=== PATIENT | female | born 2005 | race Caucasian/White ===

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

== ENCOUNTER 2023-02-14 20:08 | Emergency (ER) | payer OTHER, MEDICAID, SELFPAY ==
[2023-02-14 20:14] VITALS: BP 143/93; PULSE 84; RESP 16; TEMP 36.8; O2SAT 97
--- NOTE | 2023-02-14 22:05 | ED_ITS ---
HPI - General: Chief complaint: Vaginal Bleeding Stated complaint: ABD Pain Time Seen by Provider: 02/14/23 22:05 History of Present Illness: 17-year-old female comes in today with irregular menstrual cycle. Patient reports she had a cycle last week and then had not had no bleeding but started again today. Patient reports going through 1 pad over 2 hours this morning. Patient appears nontoxic. Patient endorses recent cessation of control. Patient reports right pelvic pain is normal for her when she has her menstrual cycle. Patient does report some right pelvic discomfort. Patient appears mild to no pain. Review of Systems General: Reports: 10 or more systems reviewed and unremarkable except in HPI and below : Reports: vaginal bleeding PFSH ED PFSH: Medical History Family planning History of posttraumatic stress disorder (PTSD) Leg pain Leg strain Major depressive disorder, recurrent, moderate Nicotine use disorder Psychiatric care Suicide attempt Vitamin B 12 deficiency Social History Smoking and tobacco status: current every day smoker e-cigarettes E-Cigarette Details: vaporizer device and with nicotine E-cig/vape details: Refill/week Quit status (tobacco): has tried quititng Number of times tried to quit tob acco: 2 Second hand smoke exposure: No Smoking risk assessment/counseling performed?: No Alcohol intake: former Year of sobriety/quit date alcohol: 2021 Desire information about alcohol rehabilitation?: No Counseling given: No Substance/Drug Use: former Date of last use: Marijuana - 2020 Desire information about substance/drug rehabilitation?: No Counseling given: No Physical Exam Const: COMMON NORMALS: alert HENMT: COMMON NORMALS: normocephalic HEAD & SCALP: normocephalic Neck/C-Spine: COMMON NORMALS: full ROM Resp: COMMON NORMALS: normal respiratory effort and clear to auscultation bilaterally AUSCULTATION: clear to auscultation bilaterally GI: PALPATION: No Tenderness to palpation present (GI) : COMMON NORMALS: Yes no CVA tenderness BLADDER/KIDNEY EXAM: Yes no CVA tenderness Back/Pelvis: COMMON NORMALS: no CVA tenderness Extremity: COMMON NORMALS: normal to inspection Neuro: SENSORIUM/ORIENTATION: Yes alert Skin: COMMON NORMALS: turgor normal GENERAL SKIN EXAM: turgor normal Course Vital Signs: Vital signs: Vital Signs Temperature 98.2 F 02/14/23 20:14 Pulse Rate 86 02/14/23 22:11 Respiratory Rate 14 02/14/23 22:11 Blood Pressure 133/86 02/14/23 22:11 Pulse Oximetry 98 02/14/23 22:11 Oxygen Delivery Me thod Room Air 02/14/23 22:11 MDM - OB/Uterine Contractions Medical Decision Making Patient came in today for irregular menstrual cycle. Abdomen is nontender. Oral mucosa is pink and moist. Respirations are even lungs are clear to auscultation. Abdomen soft nontender. Vital signs are normal. Differential diagnosis includes ovarian cyst, dysmenorrhea, irregular menstrual cycle. CBC was normal. Urinalysis was contaminated with skin cells along with blood, hCG was negative. No signs or symptoms of severe illness or injury was noted. Reviewed exam with patient with recommendations for treatment and follow-up. Recommended naproxen to help with bleeding and pain. Recommend follow-up with primary care for further instructions. Recommend return to the ED for worsening symptoms such as increased bleeding, high fever, or feeling of passing out. Patient reported understanding and agreed to plan. Lab Data 02/14/23 22: Laboratory Results WBC 9.04 10^3/uL (4.5-13.0) 02/14/23 22: RBC 4.23 10^6/uL (3.85-5.65) 02/14/23 22: Hgb 13.70 g/dL (12.4-14.8) 02/14/23 22: Hct 39.5 % (36-47) 02/14/23 22: MCV 93.4 fl (85-98) 02/14/23 22: MCH 32.4 pg (27-33) 02/14/23 22: MCHC 34.7 g/dL (30-55) 02/14/23 22: RDW 12.3 % (12.1-15.1) 02/14/23 22: Plt Count 291 10^3/cmm (157-399) 02/14/23 22: MPV 8.7 fL (7.4-10.4) 02/14/23 22: Neut % (Auto) 47.7 % 02/14/23 22:29 Lymph % (Auto) 36.9 % 02/14/23 22:29 [place] % (Auto) 10.1 % 02/14/23 22:29 Eos % (Auto) 4.1 % 02/14/23 22:29 Baso % (Auto) 1.0 % 02/14/23 22:29 Neut # (Auto) 4.31 10^3/uL (1.8-8.0) 02/14/23 22:29 Lymph # (Auto) 3.3 10^3/uL (1.5-6.5) 02/14/23 22: [place] # (Auto) 0.9 10^3/uL (0.2-0.9) 02/14/23 22: Eos # (Auto) 0.4 10^3/uL (0.0-0.8) 02/14/23 22: Baso # (Auto) 0.1 10^3/uL (0.0-0.1) 02/14/23 22:29 Nucleated RBC % (auto) 0 % 02/14/23 22: Nucleated RBCs # 0.0 /100WBC 02/14/23 22:29 HCG, Qual Negative (Negative) 02/14/23 22:08 Urine Color [place] (Yellow) A 02/14/23 22:08 Urine Appearance Cloudy (CLEAR) A 02/14/23 22:08 Urine pH 5 (5-7) 02/14/23 22:08 Ur Specific [place] 1.025 (1.005-1.030) 02/14/23 22:08 Urine Protein 1+ (Negative) H 02/14/23 22:08 Urine Glucose (UA) Norm (Normal) 02/14/23 22:08 Urine Ketones Negative (Negative) 02/14/23 22:08 Urine Blood 3+ (Negative) H 02/14/23 22:08 Urine Nitrate Negative (Negative) 02/14/23 22:08 Urine Bilirubin Neg (Negative) 02/14/23 22:08 Urine Urobilinogen Neg mg/dL (Negative) 02/14/23 22:08 Ur Leukocyte Esterase 2+ (Negative) H 02/14/23 22:08 Urine RBC 10-15 /hpf (0-2) H 02/14/23 22:08 Urine WBC 10-15 /hpf (0-5) H 02/14/23 22:08 Ur Squamous Epith Cells 25-40 /hpf (0-5) H 02/14/23 22:08 Amorphous Sediment 2+ /hpf 02/14/23 22:08 Urine Bacteria 1+ /hpf (NONE) H 02/14/23 22:08 Urine Mucus 1+ /hpf 02/14/23 22:08 No radiology studies performed this visit Discharge Plan Discharge Patient Disposition: Home Clinical Impression: Dysmenorrhea, unspecified Condition: Stable Prescriptions: New naproxen 500 mg tablet 500 mg PO BID PRN (Reason: pain) Qty: 20 0RF Discharge Orders: Discharge ED (Routine); Ordered 02/14/23 Ordered By: Zackery Harris Discharge Diet: Usual diet Discharge Activity: Increase activity as tolerated Patient Instructions: Dysmenorrhea (ED) Activity Restrictions/Additional Instructions: Drink plenty of water and fluids. Healthy diet and activity. Follow-up with primary care or EMULSION OPERATOR for further evaluation and treatment. Use naproxen 500 mg 1 tablet 2 times a day for menstrual cramping and pain. Return to ER for worsening symptoms such as increased bleeding greater than 1 pad an hour, fever greater than 100.4, lightheadedness or feeling of passing out. Coding Level of Care Code ED [place] Loader for Sen Sanchez
[2023-02-14 22:11] VITALS: BP 133/86; PULSE 86; RESP 14; O2SAT 98
[2023-02-14 22:23] LABS: HCG Qualitative Urine. Negative (Negative)
[2023-02-14 22:32] LABS: Add Urine Microscopic? YES; Bilirubin Urine Neg (Negative); Blood Urine 3+ (Negative); Glucose Urine UA Norm (Normal); Ketones Urine Negative (Negative); Leukocyte Esterase Urine 2+ (Negative); Nitrate Urine Negative (Negative); Protein Urine 1+ (Negative); Specific Gravity, Urine 1.025 (1.005-1.030); Urine Appearance Cloudy (CLEAR); Urine Color Orange (Yellow); Urobilinogen Urine Neg (Negative); pH Urine 5 (5-7)
[2023-02-14 22:33] LABS: Basophils # 0.1 10^3/uL (0.0-0.1); Eosinophils # 0.4 10^3/uL (0.0-0.8); Eosinophils % 4.1 %; Hematocrit 39.5 % (36-47); Lymphocytes # 3.3 10^3/uL (1.5-6.5); Lymphocytes % 36.9 %; Mean Corpuscular HGB Conc 34.7 g/dL (30-55); Mean Corpuscular Hemoglobin 32.4 pg (27-33); Mean Corpuscular Volume 93.4 fl (85-98); Mean Platelet Volume 8.7 fL (7.4-10.4); Monocytes # 0.9 10^3/uL (0.2-0.9); Monocytes % 10.1 %; Neutrophils # 4.31 10^3/uL (1.8-8.0); Neutrophils % 47.7 %; Nucleated Red Blood Cells % 0 %; Platelet Count 291 10^3/cmm (157-399); Red Blood Count 4.23 10^6/uL (3.85-5.65); Red Cell Distribution Width 12.3 % (12.1-15.1); White Blood Count 9.04 10^3/uL (4.5-13.0)
[2023-02-14 22:33] LABS: Amorphous Sediment Urine 2+ /hpf; Bacteria Urine 1+ /hpf; Mucus Urine 1+ /hpf; Squamous Epithelial Cell Urine 25-40 /hpf (0-5)
[2023-02-14 22:36] LABS: Add Urine Culture? No
== END 2023-02-14 23:00 | disposition home or self-care (01) ==
PROVIDERS: Emergency Medicine; Emergency Provider Nurse Practitioner Family
DX: N94.6 Dysmenorrhea, unspecified (principal); F17.290 Nicotine dependence, other tobacco product, uncomplicated
CPT/HCPCS: 81001; 81025; 85025; 99283

== ENCOUNTER 2023-04-20 02:38 | Inpatient (IN) | payer OTHER, MEDICAID, SELFPAY ==
[2023-04-20] VITALS (54 sets, daily range): BP systolic 81–117; BP diastolic 42–90; PULSE 57–117; RESP 12–17; TEMP 36.7–36.8; O2SAT 94–99; BMI 19.8; BMI 19.1
--- NOTE | 2023-04-20 02:50 | ECG_ITS ---
[facility] Test Date: 2023-04-20 Pat Name: Johanne Wolfe Department: Room: ICU06 Gender: Female Sightseeing Guide: : 2005 Requested By: Danis Ordaz Order Number: [id number] [place] MD: Jeremiah Bob M.D. Measurements Intervals [place] Rate: 82 P: 56 VA: 153 QRS: 14 QRSD: 79 T: 49 QT: 366 QTc: 428 Interpretive Statements SINUS RHYTHM POSSIBLE LEFT ATRIAL ENLARGEMENT [-0.1mV P-WAVE IN V1/V2] LOW QRS VOLTAGE IN PRECORDIAL LEADS [QRS DEFLECTION < 1.0 mV IN CHEST LEADS] POSSIBLE RIGHT VENTRICULAR CONDUCTION DELAY [RSR (QR) IN V1/V2] NONSPECIFIC T-WAVE ABNORMALITY Compared to ECG 02/21/2022 04:52:46 Low QRS voltage now present Sinus bradycardia no longer present Sinus arrhythmia no longer present T-wave abnormality still present Electronically Signed On 04-20-2023 8:17:42 DEAN by Jeremiah Bob M.D. [id number]
[2023-04-20 02:59] LABS: Basophils # 0.1 10^3/uL (0.0-0.1); Basophils % 1.3 %; Eosinophils # 0.9 10^3/uL (0.0-0.8); Eosinophils % 10.4 %; Hematocrit 39.5 % (36-47); Lymphocytes # 3.2 10^3/uL (1.5-6.5); Lymphocytes % 37.8 %; Mean Corpuscular HGB Conc 34.2 g/dL (30-55); Mean Corpuscular Hemoglobin 32.3 pg (27-33); Mean Corpuscular Volume 94.5 fl (85-98); Mean Platelet Volume 8.9 fL (7.4-10.4); Monocytes # 0.7 10^3/uL (0.2-0.9); Monocytes % 8.7 %; Neutrophils # 3.54 10^3/uL (1.8-8.0); Neutrophils % 41.7 %; Nucleated Red Blood Cells % 0 %; Platelet Count 292 10^3/cmm (157-399); Red Blood Count 4.18 10^6/uL (3.85-5.65); Red Cell Distribution Width 12.1 % (12.1-15.1); White Blood Count 8.49 10^3/uL (4.5-13.0)
[2023-04-20] MEDS: sodium chloride 0.9% 1,000 ML 999 ML IV (03:01)
[2023-04-20 03:10] LABS: HCG, Serum Qual Negative (Negative)
[2023-04-20 03:19] LABS: Acetaminophen < 5.0 ug/mL (10-30); Alanine Aminotransferase 20 U/L (0-33); Albumin Level 4.8 g/dL (3.5-5.2); Alcohol Level 48 mg/dL (0-10); Alkaline Phosphatase 98 U/L (35-105); Anion Gap 14.6 (5-19); Aspartate Amino Transferase 18 U/L (0-32); Blood Urea Nitrogen 5 mg/dL (6-20); Calcium 9.1 mg/dL (8.5-10.5); Carbon Dioxide 25 mmol/L (22-29); Chloride 100 mmol/L (98-107); Glomerular Filtration Rate 107.8 mL/min (90-130); Glucose 90 mg/dL (65-115); Osmolality Calculated 279 mOsm/kg (285-295); Potassium 3.6 mmol/L (3.5-5.1); Salicylate < 0.3 mg/dL (3-10); Sodium 136 mmol/L (136-145); Total Bilirubin 0.2 mg/dL (0.15-1.2); Total Protein 7.8 g/dL (6.6-8.7)
--- NOTE | 2023-04-20 03:49 | ED_ITS ---
HPI - Overdose 2 General: Chief Complaint: Overdose Stated Complaint: OD Time Seen by Provider: 04/20/23 02:41 History of Present Illness: 17-year-old female who took 12-14 5 mg A mbien prior to arrival. This happened around an hour prior to arrival. The patient arrives lethargic. She is oriented to person. She does not really answer questions otherwise appropriately. She is awake. She originally denied that she was suicidal, but it is known that she had been involved in a emotional conversation with her boyfriend prior. Review of Systems 2 General: Reports: ROS unobtainable due to mental status PFS ED 2 PFSH: Medical History Suicide attempt Major depressive disorder, recurrent, moderate Nicotine use disorder History of posttraumatic stress disorder (PTSD) Psychiatric care Vitamin B 12 deficiency Family planning Leg pain Leg strain Social History Smoking and tobacco/nicotine status: current every day tobacco/nicotine user e- cigarettes E-Cigarette Details: vaporizer device and with nicotine E-cig/vape details: Refill/week Quit status (tobacco/nicotine): has tried quititng Number of times tried to quit tobacco: 2 Second hand smoke exposure: No Alcohol intake: former Year of sobriety/quit date alcohol: 2021 Substance/Drug Use: former Date of last use: Marijuana - 2020 Physical Exam 2 Const: COMMON NORMALS: no acute distress GENERAL APPEARANCE: cooperative and ill appearing; not frail appearing HENMT: COMMON NORMALS: normocephalic, atraumatic and Normal external nose present HEAD & SCALP: normocephalic and atraumatic FACE & SINUS: normal facial exam and face symmetric NOSE: Normal external nose present Eye: COMMON NORMALS: Equal, round and reactive pupils present and EOMs intact bilaterally PUPIL: Yes Equal, round and reactive pupils present Neck/C-Spine: GENERAL: Yes trachea midline Chest: CHEST: Yes Symmetrical chest wall rise Resp: COMMON NORMALS: normal respiratory effort, No retractions, No use of accessory muscles and clear to auscultation bilaterally AUSCULTATION: clear to auscultation bilaterally Cardio: COMMON NORMALS: regular rate and regular rhythm RATE: regular rate RHYTHM: regular rhythm GI: COMMON NORMALS: Normal to inspection, nondistended, normoactive bowel sounds present Extremity: COMMON NORMALS: no pedal edema Neuro: ELOISA COMA SCALE: document GCS findings Eloisa coma scale eye opening: To sound [place] coma scale verbal response: Confused Eloisa coma scale motor response: Localising [place] coma scale total score: 12 SPEECH: a bnormal speech Details: slurred SENSORY EXAM: Yes extremities (intact) Skin: COMMON NORMALS: no rashes or lesions noted GENERAL SKIN EXAM: no rashes or lesions noted Course 2 Vital Signs: Vital signs: Vital Signs Temperature 98.1 F 04/20/23 02:41 Pulse Rate 117 H 04/20/23 02:41 Respiratory Rate 17 04/20/23 02:41 Blood Pressure 117/82 04/20/23 02:41 Pulse Oximetry 97 04/20/23 02:41 Oxygen Delivery Me thod Room Air 04/20/23 02:41 MDM - Overdose Medical Decision Making 17-year-old female who intentionally overdosed. She is placed under 96-hour hold. She is quite lethargic, but not obtunded. She arouses to voice. She will require ICU observation until medically stable, when she can be evaluated by psychiatry. Spoke with hospitalist. He agrees to admit. Vitals are stable at this point. Lab Data 04/20/23 02:21 12 02:21 Laboratory Results WBC 8.49 10^3/uL (4.5-13.0) 04/20/23 02:21 RBC 4.18 10^6/uL (3.85-5.65) 04/20/23 02:21 Hgb 13.50 g/dL (12.4-14.8) 04/20/23 02:21 Hct 39.5 % (36-47) 04/20/23 02:21 MCV 94.5 fl (85-98) 04/20/23 02:21 MCH 32.3 pg (27-33) 04/20/23 02:21 MCHC 34.2 g/dL (30-55) 04/20/23 02:21 RDW 12.1 % (12.1-15.1) 04/20/23 02:21 Plt Count 292 10^3/cmm (157-399) 04/20/23 02:21 MPV 8.9 fL (7.4-10.4) 04/20/23 02:21 Neut % (Auto) 41.7 % 04/20/23 02:21 Lymph % (Auto) 37.8 % 04/20/23 02:21 [place]mer[place] % (Auto) 8.7 % 04/20/23 02:21 Eos % (Auto) 10.4 % 04/20/23 02:21 Baso % (Auto) 1.3 % 04/20/23 02:21 Neut # (Auto) 3.54 10^3/uL (1.8-8.0) 04/20/23 02:21 Lymph # (Auto) 3.2 10^3/uL (1.5-6.5) 04/20/23 02:21 Esmer[place]da # (Auto) 0.7 10^3/uL (0.2-0.9) 04/20/23 02:21 Eos # (Auto) 0.9 10^3/uL (0.0-0.8) H 04/20/23 02:21 Baso # (Auto) 0.1 10^3/uL (0.0-0.1) 04/20/23 02:21 Nucleated RBC % (auto) 0 % 04/20/23 02:21 Nucleated RBCs # 0.0 /100WBC 04/20/23 02:21 Sodium 136 mmol/L (136-145) 04/20/23 02:21 Potassium 3.6 mmol/L (3.5-5.1) 04/20/23 02:21 Chloride 100 mmol/L (98-107) 04/20/23 02:21 Carbon Dioxide 25 mmol/L (22-29) 04/20/23 02:21 Anion Gap 14.6 (5-19) 04/20/23 02:21 BUN 5 mg/dL (6-20) L 04/20/23 02:21 Creatinine 0.7 mg/dL (0.5-0.9) 04/20/23 02:21 GFR Calculation 107.8 mL/min (90-130) 04/20/23 02:21 Glucose 90 mg/dL (65-115) 04/20/23 02:21 Calculated Osmolality 279 mOsm/kg (285-295) L 04/20/23 02:21 Calcium 9.1 mg/dL (8.5-10.5) 04/20/23 02:21 Total Bilirubin 0.2 mg/dL (0.15-1.2) 04/20/23 02:21 AST 18 U/L (0-32) 04/20/23 02:21 ALT 20 U/L (0-33) 04/20/23 02:21 Alkaline Phosphatase 98 U/L (35-105) 04/20/23 02:21 Total Protein 7.8 g/dL (6.6-8.7) 04/20/23 02:21 Albumin 4.8 g/dL (3.5-5.2) 04/20/23 02:21 Globulin 3.0 g/dL (1.3-4.6) 04/20/23 02:21 HCG, Qual Negative (Negative) 04/20/23 02:21 Salicylates < 0.3 mg/dL (3-10) L 04/20/23 02:21 Acetaminophen < 5.0 ug/mL (10-30) L 04/20/23 02:21 Ethyl Alcohol 48 mg/dL (0-10) H 04/20/23 02:21 No radiology studies performed this visit Discharge Plan Discharge Patient Disposition: Admitted As Inpatient Clinical Impression: Drug overdose Condition: Serious Prescriptions: No Action naproxen 500 mg tablet 500 mg PO BID PRN (Reason: pain) Qty: 20 0RF Coding Level of Care Code ED Putty Glazer for Sen Sanchez
--- NOTE | 2023-04-20 04:07 | PC.NURSE ---
poison control poison control states 1.5- 2 hour peak. may cause dizziness, drowsiness, and hallucinations. no cardiac involvement. no reversal. spoke to justin.
--- NOTE | 2023-04-20 04:40 | PC.NURSE ---
Copy of 96 Hour Hold rights given by this RN. Pt drowsy and not responding appropriately.
[2023-04-20 05:20] LABS: Add Urine Microscopic? NO; Charge for UA Resulting for Rev
[2023-04-20 05:29] LABS: Bilirubin Urine Neg (Negative); Blood Urine Neg (Negative); Glucose Urine UA Norm (Normal); Ketones Urine Negative (Negative); Leukocyte Esterase Urine Negative (Negative); Nitrate Urine Negative (Negative); Protein Urine Neg (Negative); Urine Appearance Clear (CLEAR); Urine Color Light yellow (Yellow); Urobilinogen Urine Neg (Negative); pH Urine 6 (5-7)
[2023-04-20 05:38] LABS: Amphetamines Screen Urine Negative (Negative); Barbiturates Screen Urine Negative (Negative); Benzodiazepines Screen Urine Negative (Negative); Cocaine Screen Urine Negative (Negative); Opiate Screen Urine Negative (Negative); PCP Screen Urine Negative (Negative); THC Screen Urine Positive (Negative)
--- NOTE | 2023-04-20 06:11 | PM.HP ---
Providers/Chief Complaint Admitting Physician: Duarte Delcid MD Chief Complaint: OD History of Present Illness Johanne Wolfe is a 17 year old female who was brought in by the EMS because patient overdosed on Ambien try to hurt herself, she took 14 tablets of 5 mg Ambien, she is very drowsy however able to protect airway, CBC unremarkable, BMP unremarkable, she is saturating well on room air, hypotensive required IV fluid hydration, at the time of my evaluation patient opens her eyes but goes back to sleep right away, she is noddingYes to all my questions. I called her mother, mother is stating that she has no control over her because she is 88 years old but she was admitted to neuropsychiatric facility in [facility] for suicidal attempt in the past and she thinks she needs to be institutionalized. Her mother had no clue that she was in the hospital because she lives with her boyfriend now. Review of Systems General: Reports: ROS unobtainable due to mental status Medications/Allergies Home Medications Medication Instructions Recorded Confirmed Last Taken Type naproxen 500 mg tablet 500 mg PO BID PRN pain #20 tabs 02/14/23 Unknown Rx Allergies Allergy/AdvReac Type Severity Reaction Status Date / Time No Known Allergies Allergy Verified 02/14/23 20:19 PFSH Acute PFSH: Medical History Suicide attempt Major depressive disorder, recurrent, moderate Nicotine use disorder History of posttraumatic stress disorder (PTSD) Psychiatric care Vitamin B 12 deficiency Family planning Leg pain Leg strain Social History Smoking and tobacco/nicotine status: current every day tobacco/nicotine user e-cigarettes E-Cigarette Details: vaporizer device and with nicotine E-cig/vape details: Refill/week Quit status (tobacco/nicotine): has tried quititng Number of times tried to quit tobacco: 2 Second hand smoke exposure: No Alcohol intake: former Year of sobriety/quit date alcohol: 2021 Substance/Drug Use: former Date of last use: Marijuana - 2020 Vitals/I&O/Wt Last Vital Signs Temp 98.1 F 04/20/23 02:41 Pulse 77 04/20/23 06:06 Resp 15 04/20/23 05:22 BP 104/69 04/20/23 05:22 Pulse Ox 95 04/20/23 06:06 O2 Del Method Room Air 04/20/23 05:22 Weight last 48 hrs Weight 44.452 kg Physical Exam Narrative: Pleasant and cooperative GCS 15 Able to protect airway Drowsy Saturating well on room air Hypertensive Euvolemic Abdomen soft Conjunctival hyperemia noted S1, S2 No audible stridor or wheezing Data 04/20/23 02:21 04/20/23 02:21 A&P Assessment and plan (1) Drug overdose: (2) Borderline personality disorder: (3) Panic attacks: (4) Vitamin B 12 deficiency: (5) Suicidal behavior: Plan Suicide attempt Patient took 40 tablets of Ambien 5 mg CBC, BMP unremarkable Able to protect airway She will be monitored in ICU once she is more awake and alert she will be sent to neuropsychiatric unit No signs of QTc prolongation Hemodynamically stable, I will keep her on IV fluid hydration She has not been in contact with her parents, Considering HIPAA violation I have not disclosed any information to the mother but told her that her daughter is in the hospital she is planning to be here within 2 hours She lives in [place] Full code DVT prophylaxis on board Will allow her to eat when she is more awake and alert Polysubstance abuse with marijuana, alcohol level 48 Start thiamine, folic acid Borderline personality, history of suicide attempt in the past, she was at [facility], mother is concerned and stating that she should be institutionalized Attestations Medical Necessity Statement*: More than 2 midnights anticipated Coding Level of Care Code Acute Code for Chg Fwd Diagnoses Drug overdose T50.901A Borderline personality disorder F60.3 Panic attacks F41.0 Vitamin B 12 deficiency E53.8 Suicidal behavior R45.89
--- NOTE | 2023-04-20 07:39 | PC.PHAR ---
pt unable to verify medications-medications entered are from the med bottles the pt brought in with her-notes are made in the pharmacy comments with last filled dates
--- NOTE | 2023-04-20 08:36 | P.EN_ITS ---
Event Note Event Note: Patient interviewed, seen. History and physical reviewed. She was admitted at 610 this morning. She has history of ingestion of Ambien. She believes it was around 11 PM. According to documentation from the ER it could have been as late as 1:40 AM. She awakens easily for me. She states she is sleepy but has no difficulty with her speech. I have asked that nursing called poison control. I believe the half-life is 3-1/2 hours or Ambien. She denies ingesting any other substances. Considering this, if she continues to recover I think that she could safely be transferred to [facility] this afternoon. Discussed case briefly with psychiatry.
[2023-04-20 08:53] LABS: Thyroid Stimulating Hormone 0.64 uIU/mL (0.27-4.20)
[2023-04-20] MEDS: folic acid 1 mg Tablet PO (10:18)
[2023-04-20] MEDS: enoxaparin 40 mg/0.4 mL Syringe SUBCUT (10:19)
[2023-04-20] MEDS: thiamine 100 mg Tablet PO (10:19)
[2023-04-20] MEDS: multivitamin therapeutic Tablet 1 TAB PO (10:19)
[2023-04-20] MEDS: sodium chloride 0.9% 1,000 ML 75 ML IV (10:21)
[2023-04-20] MEDS: LORazepam 2 mg/mL INJ 1 mL IVP (10:36)
--- NOTE | 2023-04-20 13:33 | PC.NURSE ---
Report called to Gail in [facility]. All questions answered. Patient safely transported to [facility] with security.
--- NOTE | 2023-04-20 14:14 | PC.NURSE ---
PT BROUGHT INTO THE EMERGENCY DEPARTMENT AFTER BOYFRIEND FOUND HER UNCONSCIOUS AFTER TAKING 12-14 AMBIEN. UPON ADMIT TO [facility] PT STATED I OVERDOSED LAST NIGHT BUT I DO NOT NEED TO BE HERE. WHEN ASKED WHAT TRIGGERED HER TAKING AN OVERDOSE PT STATED I DON'T KNOW I NEVER KNOW.
[2023-04-20] MEDS: hyDROXYzine 25 mg Capsule 50 MG PO (16:20)
--- NOTE | 2023-04-20 16:20 | PC.NURSE ---
PRN VISTARIL 50 MG GIVEN PO PER PT C/O ANXIETY, UPSET SHE HASN'T BEEN RESTARTED ON HER HOME MEDICATIONS YET, ASSURED BY STAFF PHYSICIAN WOULD BE NOTIFIED ABOUT RESTARTING HOME MEDS.
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
[2023-04-21 06:00] VITALS: RESP 16
[2023-04-21 08:00] VITALS: PULSE 76; RESP 16; O2SAT 96
[2023-04-21] MEDS: hyDROXYzine 25 mg Capsule 50 MG PO (08:28)
[2023-04-21] MEDS: multivitamin therapeutic Tablet 1 TAB PO (08:57)
[2023-04-21] MEDS: lamoTRIgine 100 mg Tablet PO (08:57)
[2023-04-21] MEDS: venlafaxine ER (24HR) 150 mg Capsule PO (08:57)
[2023-04-21] MEDS: thiamine 100 mg Tablet PO (08:57)
--- NOTE | 2023-04-21 09:12 | PC.NURSE ---
Patient sobbing uncontrollably this morning. She states she thinks this is partially due to not having her lamictal or effexor this morning. She also says she woke up this morning and had forgotten that she was at the hospital and this scared her. Patient says she is not feeling suicidal this morning and isn't sure why she tried to overdose. She states, this happens every time. I black out and never remember what happened. I was doing so good. I don't know what happened. She then began talking about how anxious she was due to not having her boyfriend or her boyfriend's mother's number. She became hysterical when she realized she did not have her phone with her when she arrived at the hospital and that their phone numbers weren't listed in her contacts. Support was voiced and vistaril 50mg po, lamictal 100mg po, and venlafaxine 150mg po were administered.
[2023-04-21 14:00] VITALS: BP 118/75; PULSE 56; RESP 15; TEMP 36.9; O2SAT 98
--- NOTE | 2023-04-21 14:50 | PC.NURSE ---
Patient approached nurses' station and began yelling that she didn't need to be here and that nobody cared and nobody would talk to her. This RN offered to talk to her in her room about what was on her mind, but the patient said she did not want to. She then pointed at the doctor and said, he even knows I don't need to be here. Patient requested her therapist's phone number that she currently sees at [facility] in [place], [place] named Germania. This information was provided to her and patient immediately went to the patient phone to place a call.
[2023-04-21] MEDS: OLANZapine 5 mg ODT PO (16:35)
--- NOTE | 2023-04-21 17:30 | P.NPUPN_ITS ---
Subjective NPU 2 Subjective: Patient presented today reporting that she really does not understand why she has to be here. We discussed it being very clear with her intentional overdose in the context of her borderline personality disorder and significant distress being concerning. She continues to demonstrate limited insight into the situation and seems to want to say what ever was expedience to move the dial towards discharge. She ultimately got so worked up that a as needed medication was requested and given which allowed her to eventually regain her composure. Mental Status Exam 2 MSE Comments: This is a short, well nourished, well developed white female in hospital scrubs with limited grooming and eye contact. No abnormal movements except for psychomotor agitation. Currently resistant to exam in mild to moderate distress. Speech was increased rate and volume. Mood described as I do not really need to be here, affect is subdued. Thought process, organized. Thought content: patient denies suicidal or homicidal ideation, no delusions reported or noted and denies any auditory or visual hallucinations. Attention and concentration are limited and memory appeared unreliable but none were formally tested. She is alert and oriented x 3. Insight and judgment are limited versus impaired. Impulse control is limited versus impaired. Vitals/I&O/Wt Last Vital Signs Temp 98.4 F 04/21/23 14:00 Pulse 56 L 04/21/23 14:00 Resp 15 04/21/23 14:00 BP 118/75 04/21/23 14:00 Pulse Ox 98 04/21/23 14:00 O2 Del Method Room Air 04/20/23 20:19 Weight last 48 hrs Weight 42.836 kg Weight 42.836 kg Weight 44.452 kg Data NPU 04/20/23 02:21 04/20/23 02:21 A&P Assessment and plan (1) Suicidal ideation: (2) Anxiety: (3) Major depressive disorder: (4) History of posttraumatic stress disorder (PTSD): (5) Drug overdose: (6) Borderline personality disorder: (7) Suicidal behavior: Plan This is an 17 year old female with a history of anxiety, depression as well as trauma and PTSD who presents status post suicide attempt which she denies, which is consistent with past admissions but she denies lethality expressing desire for discharge.. 1. Continue current medication. 2. Continue every 15 minute checks for safety. 3. Encourage individual, group and milieu therapies. 4. Encourage sober living treatment after discharge at the highest level of care to which she is willing to commit. 5. Patient transferred from the ICU for psychiatric treatment. Involuntary Hold Information 2 96 Hour Hold: 96 Hour Involuntary Admission: Yes 96 Hour Hold Ending Date: 02/26/22 96 Hour Hold Ending Time: 00:01 Attestations NPU 2 Medical Necessity Statement*: Inpatient hospitalization is medically necessary and the clinically appropriate intervention at this time. We will monitor medication to make changes as indicated. Likely length of stay 2-4 days. Coding Level of Care Code Acute Code for Chg Fwd Diagnoses Suicidal ideation R45.851 Anxiety F41.9 Major depressive disorder F32.9 History of posttraumatic stress disorder (PTSD) Z86.59 Drug overdose T50.901A Borderline personality disorder F60.3 Suicidal behavior R45.89
--- NOTE | 2023-04-21 17:45 | PC.NURSE ---
Approximately 1630 patient began screaming that she wanted to go home and sobbing hysterically. She claimed that nobody cared about her and that everyone had abandoned her. This RN sat with the patient and talked with her about why she felt this way. She divulged that she had made a stupid decision because of a trigger that was at home that would no longer be there anymore. When this nurse asked what the trigger was she said she didn't want to talk about it, but later admitted that it was that she had cheated on her boyfriend and felt badly about it. She said she then remembers saying, wait and see what happens in 20 minutes to her boyfriend and his mother after she took medication. Patient says the boyfriend's mother attempted to get her to vomit the medications back up, but ended up calling the police. She also states her mother, who has visited during visiting hours the last 2 days, does not really care about her and is just pretending. 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 Patient calmed significantly and zyprexa 5mg odt administered. This RN requested the patient notify staff if she began feeling increasing anxiety again.
[2023-04-21 20:43] VITALS: RESP 15
[2023-04-22 06:00] VITALS: BP 93/61; PULSE 76; RESP 16; O2SAT 96
[2023-04-22 08:00] VITALS: PULSE 79; RESP 16; O2SAT 96
[2023-04-22] MEDS: lamoTRIgine 100 mg Tablet PO (08:43)
[2023-04-22] MEDS: thiamine 100 mg Tablet PO (08:43)
[2023-04-22] MEDS: multivitamin therapeutic Tablet 1 TAB PO (08:43)
[2023-04-22] MEDS: venlafaxine ER (24HR) 150 mg Capsule PO (08:43)
[2023-04-22] MEDS: hyDROXYzine 25 mg Capsule 50 MG PO (11:30)
[2023-04-22 14:00] VITALS: BP 101/64; PULSE 58; RESP 14; TEMP 36.9; O2SAT 99
--- NOTE | 2023-04-22 16:25 | P.NPUPN_ITS ---
Subjective NPU 2 Subjective: Patient presented today reporting that she is doing all right. She discussed the need for her to continue to make improvements and identified her self sabotaging approaches in life that continue to create these challenging moments. She took ownership of the choices that her behaviors and we discussed her working with the social work team for appropriate follow-up. We discussed discharge in the next 48 hours. Mental Status Exam 2 MSE Comments: This is a short, well nourished, well developed white female in hospital scrubs with improved grooming and eye contact. No abnormal movements except for mild psychomotor retardation. Operative with exam in mild distress. Speech was more normal rate and volume. Mood described as I know I need to make some changes, affect is subdued. Thought process, organized. Thought content: patient denies suicidal or homicidal ideation, no delusions reported or noted and denies any auditory or visual hallucinations. Attention and concentration are limited and memory appeared unreliable but none were formally tested. She is alert and oriented x 3. Insight and judgment are limited, but improving. Impulse control is limited . Vitals/I&O/Wt Last Vital Signs Temp 98.4 F 04/21/23 14:00 Pulse 79 04/22/23 08:00 Resp 16 04/22/23 08:00 BP 93/61 04/22/23 06:00 Pulse Ox 96 04/22/23 08:00 O2 Del Method Room Air 04/22/23 08:00 Data NPU 04/20/23 02:21 04/20/23 02:21 A&P Assessment and plan (1) Suicidal ideation: (2) Anxiety: (3) Major depressive disorder: (4) History of posttraumatic stress disorder (PTSD): (5) Drug overdose: (6) Borderline personality disorder: (7) Suicidal behavior: Plan This is an 17 year old female with a history of anxiety, depression as well as trauma and PTSD who presents status post suicide attempt which she denies, which is consistent with past admissions but she denies lethality expressing desire for discharge.. 1. Continue current medication. 2. Continue every 15 minute checks for safety. 3. Encourage individual, group and milieu therapies. 4. Encourage sober living treatment after discharge at the highest level of care to which she is willing to commit. 5. Evaluated on 96-hour hold likely discharge in the morning. Involuntary Hold Information 2 96 Hour Hold: 96 Hour Involuntary Admission: Yes 96 Hour Hold Ending Date: 02/26/22 96 Hour Hold Ending Time: 00:01 Attestations NPU 2 Medical Necessity Statement*: Inpatient hospitalization is medically necessary and the clinically appropriate intervention at this time. We will monitor medication to make changes as indicated. Likely length of stay 1-3 days. Coding Level of Care Code Acute Code for Chg Fwd Diagnoses Suicidal ideation R45.851 Anxiety F41.9 Major depressive disorder F32.9 History of posttraumatic stress disorder (PTSD) Z86.59 Drug overdose T50.901A Borderline personality disorder F60.3 Suicidal behavior R45.89
[2023-04-22] MEDS: OLANZapine 5 mg ODT PO (20:21)
[2023-04-22] MEDS: trazodone 50 mg Tablet PO (20:21)
[2023-04-22 20:34] VITALS: BP 101/69; PULSE 66; RESP 14; TEMP 36.9; O2SAT 96
--- NOTE | 2023-04-22 20:43 | PC.NURSE ---
PT IN ROOM, TEARFUL ON ASSESSMENT. REPORTS MY ANXIETY IS SUPER BAD EVEN AFTER I DID MY BREATHING EXERCISES AND JOURNALING. PT WAS GIVEN ZYDIS 5 MG ORDERED FOR SEVERE AGITATION AND ANXIETY. PT CONTINUES TO CALL HER BOYFRIEND AND CRY THEN COME TO THE NURSES STATION AND CRY SAYING THAT NO ONE IS TALKING TO ME AND I WANT SOMEONE TO TALK TO. PT WAS INFORMED SHE HAS BEEN ON THE PHONE AND STAFF DOES NOT TALK TO PTS WHILE THEY ARE ON THE PHONE WITH OTHER PEOPLE. PT WAS ALSO GIVEN TRAZODONE 50 MG ORDERED DUE TO INSOMNIA AND PT REQUEST. PT DENIES SI/HI AND AVH AT THIS TIME. REPORTS ANXIETY 6/10 AND DEPRESSION 0/10. DENIES PAIN. ALL QUESTIONS ANSWERED AND SUPPORT WAS VOICED.
--- NOTE | 2023-04-23 03:55 | PC.NURSE ---
PT HAS SLEPT APPROXIMATELY 7 HOURS SINCE ADMINISTRATION OF TRAZODONE 50 MG AND ZYDIS 5 MG. PRN MEDICATIONS DEEMED EFFECTIVE. PT CONTINUES TO REST WITH NO DISTRESS NOTED.
[2023-04-23 06:00] VITALS: RESP 15
[2023-04-23 08:00] VITALS: PULSE 80; RESP 18; O2SAT 96
[2023-04-23] MEDS: thiamine 100 mg Tablet PO (08:52)
[2023-04-23] MEDS: multivitamin therapeutic Tablet 1 TAB PO (08:52)
[2023-04-23] MEDS: venlafaxine ER (24HR) 150 mg Capsule PO (08:52)
[2023-04-23] MEDS: lamoTRIgine 100 mg Tablet PO (08:52)
[2023-04-23] MEDS: blistex lip oint 7 gm Tube 1 APPLIC TOPICAL (10:10)
--- NOTE | 2023-04-23 11:25 | P.NPUDS_ITS ---
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 tablet 5 mg PO TID PRN (Reason: anxiety) Qty: 30 0RF Discharge Orders: Discharge Order (Routine); Ordered 04/23/23 Ordered By: Acosta Bonilla Referrals: [facility] [Other] - 04/29/23 2:00 pm (Appointment with Germania Robledo ) [facility] [Outside] - 04/28/23 9:00 am (One time hospital follow up with Carli Manzano 04/28/23 @ 9:00 am ) Fan Peter DO [Staff Physician] - 05/05/23 2:45 pm (Follow up) Discharge Diet: Regular Discharge Activity: Resume usual activity Patient Instructions: Trazodone (By mouth) (Desyrel, Desyrel Dividose, Oleptro, Trazamine), Borderline Personality Disorder (DC), Suicide Prevention (DC), Opioid Safety Discharge Attestations NPU Time Spent in Discharge Care*: less than 30 min Specific Discharge Activities: Specific discharge activities: educating patient, discussing with case technician/social workers/dc planners, documenting/other paperwork and evaluating patient/reviewing data Coding Level of Care Code Acute Code for Chg Fwd Diagnoses Suicidal ideation R45.851 Anxiety F41.9 Major depressive disorder F32.9 History of posttraumatic stress disorder (PTSD) Z86.59 Drug overdose T50.901A Borderline personality disorder F60.3 Suicidal behavior R45.89
[2023-04-23 11:38] VITALS: PULSE 80; RESP 18; O2SAT 96
[2023-04-23] MEDS: hyDROXYzine 25 mg Capsule 50 MG PO (12:19)
== END 2023-04-23 14:11 | disposition home or self-care (01) | DRG 881 ==
LOC: ER 04:03 → ICU 07:23 → NP 13:21
PROVIDERS: Admitting Provider Internal Medicine; Emergency Provider Emergency Medicine; Visit Provider Internal Medicine
DX: F32.9 Major depressive disorder, single episode, unspecified (principal); F17.290 Nicotine dependence, other tobacco product, uncomplicated; F43.10 Post-traumatic stress disorder, unspecified; E53.8 Deficiency of other specified B group vitamins; F60.3 Borderline personality disorder; F41.9 Anxiety disorder, unspecified; F12.10 Cannabis abuse, uncomplicated; Z81.8 Family history of other mental and behavioral disorders; Z81.3 Family history of other psychoactive substance abuse and dependence; Z62.810 Personal history of physical and sexual abuse in childhood; Z62.811 Personal history of psychological abuse in childhood; T42.6X2A Poisoning by other antiepileptic and sedative-hypnotic drugs, intentional self-harm, initial encounter; Y92.9 Unspecified place or not applicable; Z91.51 Personal history of suicidal behavior
CPT/HCPCS: 80053; 80306; 80307; 81003; 84443; 84703; 85025; 93005; 96360; 96372; 97150; 97165; 99285; J1650; J2060; J7030

== ENCOUNTER → 2023-05-14 15:44 | Outpatient (BNVA) | payer OTHER, MEDICAID, SELFPAY | PROVIDERS: Visit Provider Nurse Practitioner Women's Health | DX: R10.2 Pelvic and perineal pain (principal); N64.4 Mastodynia | CPT/HCPCS: 81025; 84702; 87491; 87591 ==

== ENCOUNTER 2023-05-16 20:33 | Emergency (ER) | payer OTHER, MEDICAID, SELFPAY ==
[2023-05-16 20:38] VITALS: BP 123/83; PULSE 95; RESP 16; TEMP 36.8; O2SAT 97
--- NOTE | 2023-05-16 21:25 | ED.C_ITS ---
HPI - Psych General: Chief Complaint: Psychiatric Symptoms Stated Complaint: MHE Time Seen by Provider: 05/16/23 21:00 History of Present Illness: Presents to the ER with increased pression anxiety. Patient says she has been out of her Lamictal for the last 3 days. Patient has been unable to see a psych physician to get her medicines filled. She was released from [facility] on about 12 . Patient states she was on 100 mg of Lamictal at that time and just run out 3 days ago. She was referred to 1 psychiatrist but he decided he did not want to see her. Patient is emotional at the moment but adamantly denies being suicidal or homicidal. Patient was seen at the [facility] on 1228 where she had a quantitative hCG drawn and it was 1. So patient is currently not . Patient is wanting back on her medicine. Review of Systems General: Reports: 10 or more systems reviewed and unremarkable except in HPI and below PFSH ED PFSH: Medical History Suicide attempt Major depressive disorder, recurrent, moderate Nicotine use disorder History of posttraumatic stress disorder (PTSD) Psychiatric care Vitamin B 12 deficiency Family planning Leg pain Leg strain Social History Smoking and tobacco/nicotine status: current every day tobacco/nicotine user e- cigarettes E-Cigarette Details: vaporizer device and with nicotine E-cig/vape details: Refill/week Quit status (tobacco/nicotine): has tried quititng Number of times tried to quit tobacco: 2 Second hand smoke exposure: No Alcohol intake: former Year of sobriety/quit date alcohol: 2021 Substance/Drug Use: former Date of last use: Marijuana - 2020 Physical Exam Const: COMMON NORMALS: no acute distress, average body habitus, patient oriented x3, no limitations, healthy appearing, alert and well nourished HENMT: COMMON NORMALS: normocephalic, atraumatic, hearing grossly normal bilaterally, external ears normal, Normal external nose present, moist oral mucous membranes and oropharynx normal HEAD & SCALP: normocephalic and atraumatic NOSE: Normal external nose present EXTERNAL EAR: Yes external ears normal Neck/C-Spine: COMMON NORMALS: no JVD Chest: COMMONS NORMALS: normal inspection of the chest and normal palpation of entire chest wall Resp: COMMON NORMALS: normal respiratory effort, No retractions, No use of accessory muscles and clear to auscultation bilaterally AUSCULTATION: clear to auscultation bilaterally Cardio: COMMON NORMALS: no JVD, regular rate, regular rhythm, S1 normal heart sound present, S2 normal heart sound present, No gallops present (Cardio), No clicks present (Cardio), No murmurs present (Cardio) and No rub (Cardio) RATE: regular rate RHYTHM: regular rhythm HEART SOUNDS: S1 normal heart sound present and S2 normal heart sound present GI: COMMON NORMALS: Normal to inspection, nondistended, normoactive bowel sounds present, Soft to palpation, non-tender, No hepatosplenomegaly present and no masses PALPATION: Yes Soft to palpation and Yes No hepatosplenomegaly present Neuro: COMMON NORMALS: patient oriented x3 SENSORIUM/ORIENTATION: Yes alert Course Vital Signs: Vital signs: Vital Signs Temperature 98.2 F 05/16/23 20:38 Pulse Rate 95 05/16/23 20:38 Respiratory Rate 16 05/16/23 20:38 Blood Pressure 123/83 05/16/23 20:38 Pulse Oximetry 97 05/16/23 20:38 [facility] - Psych Medical Decision Making Patient's been off her Lamictal for 3 days and is getting emotional and anxious. Patient not suicidal or homicidal and is not . We will represcribe her Lamictal 100 mg a day #30 and trial of BuSpar 5 mg 3 times daily as needed and have her follow-up with her PCP and/or psychiatrist in the interim. Differential Diagnosis Likely depression and acute anxiety; Unlikely acute psychosis, chronic schizophrenia, suicidal ideation, bipolar disorder or drug-induced psychotic disorder Medical Records I reviewed the patient's medical records. Lab Data I reviewed the patient's lab results. No radiology studies performed this visit Discharge Plan Discharge Patient Disposition: Home Clinical Impression: Acute anxiety, Depression, Bipolar disorder Condition: Stable Prescriptions: No Action Menstrual Relief 500-60-15 mg Tablet 2 tab PO QID PRN (Reason: Menstrual Pain) naproxen sodium 220 mg Tablet 220 mg PO BID PRN (Reason: Pain) folic acid 1 mg Tablet 1 mg PO DAILY hydroxyzine HCl 25 mg tablet 12.5 - 25 mg PO TID PRN (Reason: Anxiety) zolpidem [Ambien] 5 mg Tablet 5 mg PO BEDTIME PRN (Reason: Sleep) Laxative Pills 25 mg Tablet 25 mg PO DAILY PRN (Reason: Laxative Effect) ferrous sulfate 28 mg iron Tablet 28 mg PO DAILY Vit D3-50 50,000 units PO . DIRECTED lamotrigine 100 mg tablet 100 mg PO DAILY venlafaxine 150 mg capsule,extended release 24hr 150 mg PO DAILY trazodone 50 mg Tablet 50 mg PO BEDTIME PRN (Reason: Sleep) 30 Days Qty: 30 1RF Vitamin B-1 (mononitrate) 100 mg Tablet 100 mg PO DAILY 30 Days Qty: 30 1RF Discharge Orders: Discharge ED (Routine); Ordered 05/16/23 Ordered By: Armando Ceballos Patient Instructions: Anxiety (ED), Bipolar Disorder Activity Restrictions/Additional Instructions: Please take all your medicine as directed. Please follow-up with your family practice physician and/or psychiatrist within the next 30 days so that we do not run out of medicine. Coding Level of Care Code ED Civil Drafter for Sen Sanchez
[2023-05-16 21:34] LABS: Amphetamines Screen Urine Negative (Negative); Barbiturates Screen Urine Negative (Negative); Benzodiazepines Screen Urine Negative (Negative); Cocaine Screen Urine Negative (Negative); Opiate Screen Urine Negative (Negative); PCP Screen Urine Negative (Negative); THC Screen Urine Positive (Negative)
[2023-05-16 21:38] VITALS: BP 123/83; PULSE 95; RESP 16; TEMP 36.8; O2SAT 97
[2023-05-16] MEDS: lamoTRIgine 100 mg Tablet PO (21:39)
[2023-05-17 00:28] LABS: HCG Qualitative Urine. Negative (Negative)
== END 2023-05-16 21:39 | disposition home or self-care (01) ==
PROVIDERS: Emergency Medicine; Emergency Provider Emergency Medicine
DX: F41.8 Other specified anxiety disorders (principal); F31.9 Bipolar disorder, unspecified; F17.290 Nicotine dependence, other tobacco product, uncomplicated
CPT/HCPCS: 80306; 81025; 99283

== ENCOUNTER → 2023-12-01 09:11 | Outpatient (BNVA) | payer OTHER, SELFPAY | PROVIDERS: Visit Provider Nurse Practitioner Psychiatric/Mental Health | DX: Z03.89 Encounter for observation for other suspected diseases and conditions ruled out (principal); Z79.899 Other long term (current) drug therapy | CPT/HCPCS: 80061; 81025; 83036 ==

== ENCOUNTER → 2024-01-05 11:44 | Outpatient (BNVA) | payer OTHER, SELFPAY | PROVIDERS: Visit Provider Nurse Practitioner Psychiatric/Mental Health | DX: Z51.81 Encounter for therapeutic drug level monitoring (principal) | CPT/HCPCS: 80178 ==

== ENCOUNTER → 2024-03-08 09:14 | Outpatient (BNVA) | payer OTHER, SELFPAY | PROVIDERS: Visit Provider Nurse Practitioner Psychiatric/Mental Health | DX: Z51.81 Encounter for therapeutic drug level monitoring (principal) | CPT/HCPCS: 80178 ==

== ENCOUNTER 2024-05-16 12:10 | Outpatient (CLI) | payer OTHER, MEDICAID, SELFPAY ==
--- NOTE | 2024-05-16 12:15 | MR_ITS ---
WS: [id number] MRI BRAIN WITHOUT CONTRAST HISTORY: MIGRAINE COMPARISON: Noncontrast CT head 09/12/2022 TECHNIQUE: Diffusion imaging, multiplanar T1, T2 and FLAIR imaging obtained. No evidence for acute infarct or hemorrhage. Gaxiola-white matter differentiation is normal. No remote or acute infarcts are volume loss. Ventricles and extra-axial spaces are normal. No inferior displacement of cerebellar tonsils. The sella turcica and pituitary gland are unremarkabl e. Dural venous sinuses and ramona of Rosenthal demonstrate no abnormality on this unenhanced studies. Paranasal sinuses: RIGHT maxillary sinus mucoperiosteal thickening. Mucous retention cyst at the base of the RIGHT maxillary sinus. Otherwise clear. Mastoid air cells: Normal. Calvarium and scalp: Intact. MR/MR head wo con* [id number] IMPRESSION: 1. No acute intracranial hemorrhage or edema. 2. No acute or remote infarct. 3. RIGHT maxillary paranasal sinus disease with mucous retention cyst.
== END 2024-05-16 12:11 | disposition home or self-care (01) ==
LOC: RAD 12:12
PROVIDERS: PCP Physician Assistant; Visit Provider Physician Assistant
DX: G43.909 Migraine, unspecified, not intractable, without status migrainosus (principal); J32.8 Other chronic sinusitis; K11.6 Mucocele of salivary gland; R93.0 Abnormal findings on diagnostic imaging of skull and head, not elsewhere classified
CPT/HCPCS: 70551

== ENCOUNTER 2024-06-04 00:43 | Emergency (ER) | payer OTHER, MEDICAID, SELFPAY ==
[2024-06-04 00:53] VITALS: PULSE 105; RESP 22; TEMP 36.2; O2SAT 100; BMI 20.2
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
== END 2024-06-04 01:37 | disposition home or self-care (01) ==
PROVIDERS: Emergency Provider Emergency Medicine; PCP Physician Assistant
DX: F10.129 Alcohol abuse with intoxication, unspecified (principal)
CPT/HCPCS: 99283

== ENCOUNTER → 2024-06-17 08:53 | Outpatient (BNVA) | payer OTHER, SELFPAY | PROVIDERS: PCP Physician Assistant; Visit Provider Psychiatry & Neurology Psychiatry | DX: Z79.899 Other long term (current) drug therapy (principal); Z51.81 Encounter for therapeutic drug level monitoring | CPT/HCPCS: 80053; 80061; 80178; 83036; 85025 ==

== ENCOUNTER → 2024-09-05 09:10 | Outpatient (BNVA) | payer OTHER, SELFPAY | PROVIDERS: PCP Physician Assistant; Visit Provider Nurse Practitioner Psychiatric/Mental Health | DX: Z51.81 Encounter for therapeutic drug level monitoring (principal); F31.81 Bipolar II disorder; F60.3 Borderline personality disorder; F41.0 Panic disorder [episodic paroxysmal anxiety] | CPT/HCPCS: 80178 ==

== ENCOUNTER → 2024-09-06 11:05 | Outpatient (BNVA) | payer OTHER, SELFPAY | PROVIDERS: PCP Physician Assistant; Visit Provider Emergency Medicine | DX: R39.9 Unspecified symptoms and signs involving the genitourinary system (principal) | CPT/HCPCS: 81000; 87086 ==

== ENCOUNTER 2024-10-11 23:39 | Emergency (ER) | payer OTHER, SELFPAY ==
[2024-10-11 23:41] VITALS: BP 144/93; PULSE 130; RESP 18; TEMP 36.4; O2SAT 95; BMI 20.2
--- NOTE | 2024-10-11 23:49 | ECG_ITS ---
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
[2024-10-12 00:26] VITALS: BP 128/91; PULSE 106; RESP 16; O2SAT 94
--- NOTE | 2024-10-12 00:41 | ED_ITS ---
HPI - Anxiety General: Chief Complaint: Anxiety Stated Complaint: Anxiety Time Seen by Provider: 10/12/24 00:31 History of Present Illness: 19-year-old female with a history of anx iety who presents the emergency room with worsening anxiety. Says she takes hydroxyzine for this normally and today she woke up extremely anxious. No specific cause that she can think of. She tried to take her hydroxyzine and it did not help. Related Data Home Medications ?Medication ?Instructions ?Recorded ?Confirmed No Known Home Medications 09/22/2401/09 Previous Rx's ?Medication ?Instructions ?Recorded hydroxyzine HCl 25 mg tablet 25 mg PO BID PRN anxiety #60 tabs 09/22/24 lithium carbonate 300 mg See Rx Instructions PO .COMP SARA 09/26/24 tablet,extended release #90 tabs Allergies Allergy/AdvReac Type Severity Reaction Status Date / Time No Known Allergies Allergy Verified 10/11/24 23:52 Review of Systems Narrative: Constitutional symptoms: Negative except as documented in HPI. Skin symptoms: Negative except as documented in HPI. Eye symptoms: Negative except as documented in HPI. ENMT symptoms: Negative except as documented in HPI. Respiratory symptoms: Negative except as documented in HPI. Cardiovascular symptoms: Negative except as documented in HPI. Gastrointestinal symptoms: Negative except as documented in HPI. Genitourinary symptoms: Negative except as documented in HPI. Musculoskeletal symptoms: Negative except as documented in HPI. Neurologic symptoms: Negative except as documented in HPI. Psychiatric symptoms: Negative except as documented in HPI. Endocrine symptoms: Negative except as documented in HPI. [facility] ED PFSH: Medical History Suicide attempt Major depressive disorder, recurrent, moderate Nicotine use disorder History of posttraumatic stress disorder (PTSD) Psychiatric care Vitamin B 12 deficiency Family planning Leg pain Leg strain Social History Smoking and tobacco/nicotine status: never used tobacco/nicotine Quit status (tobacco/nicotine): has tried quititng Number of times tried to quit tobacco: 2 Second hand smoke exposure: No Alcohol intake: former Year of sobriety/quit date alcohol: 2021 Substance/Drug Use: former Date of last use: Marijuana - 2020 Female Reproductive History: Date of last menstrual period: 05/05/25 Physical Exam Narrative: EXAM NARRATIVE: General: Alert, no acute distress. Skin: Warm, dry. Head: Normocephalic, atraumatic. Neck: Supple, trachea midline. Eye: Extraocular movements are intact. Ears, nose, mouth and throat: mucosa moist. Cardiovascular: Regular, Normal peripheral perfusion. Respiratory: Lungs are clear to auscultation, respirations are non-labored, breath sounds are equal, Symmetrical chest wall expansion. Gastrointestinal: Soft, Nontender, Non distended Musculoskeletal: Normal ROM, no deformity. Neurological: Alert and oriented, No focal neurological deficit observed. Psychiatric: Cooperative, anxious. Tearful. Denies any suicidal or homicidal ideations Course Vital Signs: Vital signs: Vital Signs Temperature 97.5 F L 10/11/24 23:41 Pulse Rate 106 H 10/12/24 00:26 Respiratory Rate 16 10/12/24 00:26 Blood Pressure 128/91 10/12/24 00:26 Pulse Oximetry 94 10/12/24 00:26 Oxygen Delivery Me thod Room Air 10/12/24 00:26 MDM - Anxiety Medical Decision Making Assessment and plan: Panic attack ? P.o. Ativan with improvement in symptoms. - Discharged home - Discussed plan with patient. Answered any questions. - Evaluation and treatment of this problem were appropriate in the emergency setting. No radiology studies performed this visit Discharge Plan Discharge Patient Disposition: Home Clinical Impression: Panic attack Condition: Stable Prescriptions: No Action No Known Home Medications hydroxyzine HCl 25 mg tablet 25 mg PO BID PRN (Reason: anxiety) Qty: 60 2RF Rx Instructions: Take one tablet twice a day, if needed for anxiety lithium carbonate 300 mg tablet extended release See Rx Instructions PO .COMPLEX Qty: 90 1RF Rx Instructions: For 3 days, take 1 tablet every AM and bedtime, then increase to one tablet in the AM and 2 tablets at bedtime Discharge Orders: Discharge ED (Routine); Ordered 10/12/24 Ordered By: Taylor Fernández Referrals: Angeline Marmolejo PA [Primary Care Provider, Physicians Hand Cultivator] Discharge Diet: Usual diet Discharge Activity: Increase activity as tolerated Patient Instructions: Panic Attack (ED), Opioid Safety, Pain Management Activity Restrictions/Additional Instructions: Thank you for choosing [facility] for your healthcare needs today. You have been screened and evaluated and felt safe for discharge. Health conditions do change or evolve sometimes and as such it is important that you follow up with your Primary Doctor to be re checked, 3-5 days is a general good time frame for follow up. You are always welcome to return to the ED for re assessment if your symptoms are worsening or you have new concerns Print Language: Thai Coding Level of Care Code ED Refinery Operator Alkylation for Sen Sanchez
[2024-10-12] MEDS: LORazepam 1 mg Tablet PO (00:57)
[2024-10-12 01:30] VITALS: BP 113/84; PULSE 91; RESP 16; O2SAT 100
[2024-10-12 02:25] VITALS: BP 113/84; PULSE 103; RESP 16; O2SAT 97
== END 2024-10-12 02:27 | disposition home or self-care (01) ==
PROVIDERS: Emergency Provider Emergency Medicine; PCP Physician Assistant
DX: F41.0 Panic disorder [episodic paroxysmal anxiety] (principal)
CPT/HCPCS: 93005; 99283; J9999

== ENCOUNTER 2025-01-16 02:19 | Emergency (ER) | payer MEDICAID, SELFPAY ==
--- OUTSIDE RECORDS SUMMARY | 2010-05-23 05:15 | XMS_ITS | Continuity of Care Document ---
Author Organization [facility] Address [id number] [address] Phone Care Team Providers Care Technical Support Coordinator Name Role Phone Unavailable Unavailable Unavailable Procedures Procedure Date Bitewings Two Films Periodic Oral Evaluation Established Patient Prophylaxis Child Topical Fluoride Varnish; Therapeutic Ap plication Limited Oral Evaluation Problem Focused Intraoral Periapical First Film Therapeutic Pulpotomy (Excluding Final R estoration Sedative Filling Analgesia, Anxiolysis, Inhalation Of Nit angela Oxide EDR Approval Note Advance Directives Directive Yes / No Effective Date File Name No Information Encounters Encounter Description Practice Location Reason(s) For Visit Diagnoses Date Provider Providers Copied on Encounter [facility], [id number] [place], [place], [id number], [place] tel:[phone] [facility] Dental examination 1 No Information [facility], [id number] [place], [place], [id number], tel:[phone] [facility] Dental examination 0 No Information Family History Family Member Type Diagnosis Age At Onset No Information Payers Payer name Insurance type Covered democrat ID Raji yoder(s) D Medicaid [id number] Social History Type Description Quantity Date Captured Comments Sex Female Smoking Status No Information Chief Complaint And Reason For Visit No Information Reason For Referral Reason For Referral No Information History Of Present Illness Encounter Date Complaint History Of Prese nt Illness No Information Functional Status Date Functional Assessmen t No Information Instructions Date Instruction Additional Infor mation No Information Assessments Type Assessment Date No Information Patient Care Teams Name Effective Dates (start - stop) Status Members No Information
[2025-01-16 02:22] VITALS: BP 123/84; PULSE 113; RESP 24; TEMP 36.8; O2SAT 97; BMI 21.2
[2025-01-16 02:40] VITALS: BP 116/88; PULSE 116; RESP 19
--- NOTE | 2025-01-16 02:56 | XRR_ITS ---
PROCEDURE INFORMATION: Exam: XR Chest Exam date and time: 01/16/2025 4:24 AM Age: 19 years old Clinical indication: Shortness of breath; Chest pressure; Chest pain with SOB; Additional info: Cp SOB TECHNIQUE: Imaging protocol: Radiologic exam of the chest. Views: 1 view. COMPARISON: No relevant prior studies available. FINDINGS: Lungs: Unremarkable. No consolidation. Pleural spaces: Unremarkable. No pleural effusion. No pneumothorax. Heart/Mediastinum: Unremarkable. No cardiomegaly. Bones/joints: Unremarkable. XR/XR chest 1V portable [id number] IMPRESSION: No acute findings.
[2025-01-16 03:18] LABS: Hematocrit 43.5 % (36-47); Hemoglobin 14.50 g/dL (11.27-16.99); Mean Corpuscular HGB Conc 33.3 g/dL (30-55); Mean Corpuscular Hemoglobin 31.5 pg (27-33); Mean Corpuscular Volume 94.6 fl (85-98); Nucleated Red Blood Cells % 0 %; Platelet Count 346 10^3/cmm (157-399); Red Blood Count 4.60 10^6/uL (3.85-5.65); White Blood Count 8.65 10^3/uL (3.29-11.43)
[2025-01-16 03:30] VITALS: BP 116/88; PULSE 93; RESP 18; O2SAT 95
[2025-01-16 03:36] VITALS: PULSE 89; RESP 16; O2SAT 97
[2025-01-16 04:08] LABS: Troponin(5th) Baseline < 6 ng/L (0-10)
[2025-01-16 04:09] LABS: Alanine Aminotransferase 10 U/L (0-33); Albumin Level 4.5 g/dL (3.5-5.2); Alkaline Phosphatase 94 U/L (35-105); Anion Gap 18.3 (5-19); Aspartate Amino Transferase 18 U/L (0-32); Blood Urea Nitrogen 9 mg/dL (6-20); Calcium 8.8 mg/dL (8.5-10.5); Carbon Dioxide 24 mmol/L (22-29); Chloride 104 mmol/L (98-107); Creatinine Clr Calc Pharmacy 111.5155; Globulin 2.7 g/dL (1.3-4.6); Glucose 85 mg/dL (65-115); NT Pro B Type Natriuretic Pept < 36 pg/mL (0-125); Osmolality Calculated 292 mOsm/kg (285-295); Potassium 4.3 mmol/L (3.5-5.1); Sodium 142 mmol/L (136-145); Total Protein 7.2 g/dL (6.6-8.7)
--- NOTE | 2025-01-16 04:21 | W.ED.ANXIETY ---
HPI - Anxiety General: Chief Complaint: Anxiety Stated Complaint: Anxiety Time Seen by Provider: 01/16/25 02:49 History of Present Illness: Patient is a 19-year-old female who presents with acute anxiety symptoms including panic attacks, crying episodes, and chest tightness. Symptoms began today at approximately 10:00. Patient reports having a good day prior to symptom onset, including plans to attend a spiritism. She denies any specific triggers for her anxiety episode. Patient also reports respiratory symptoms including cough productive of yellowish and clear phlegm. She endorses chest pain with breathing and discomfort in the posterior neck region. Patient has a history of mold exposure, having worked in an environment with black mold for approximately three months. She states she has a history of anxiety which has worsened since the mold exposure. Patient also reports a history of asthma and uses Advair inhaler, though she has not used it recently. She denies fever (though has no thermometer at home), denies vomiting but reports nausea. Patient had her menstrual period approximately four days ago and denies possibility of . Related Data Previous Rx's ?Medication ?Instructions ?Recorded hydroxyzine HCl 25 mg tablet 25 mg PO BID PRN anxiety #60 tabs 09/22/24 Allergies Allergy/AdvReac Type Severity Reaction Status Date / Time No Known Allergies Allergy Verified 01/16/25 02:28 [facility] ED [facility]: Medical History (Updated 01/16/25 @ 04:25 by Danis Clarke DO) Suicide attempt Major depressive disorder, recurrent, moderate Nicotine use disorder History of posttraumatic stress disorder (PTSD) Psychiatric care Vitamin B 12 deficiency Family planning Leg pain Leg strain Social History Smoking and tobacco/nicotine status: never used tobacco/nicotine Quit status (tobacco/nicotine): has tried quititng Number of times tried to quit tobacco: 2 Second hand smoke exposure: No Alcohol intake: former Year of sobriety/quit date alcohol: 2021 Substance/Drug Use: former Date of last use: Marijuana - 2020 Female Reproductive History: Date of last menstrual period: 01/11/25 Physical Exam Const: COMMON NORMALS: no acute distress GENERAL APPEARANCE: cooperative; not ill appearing and not frail appearing HENMT: COMMON NORMALS: normocephalic, atraumatic and Normal external nose present HEAD & SCALP: normocephalic and atraumatic FACE & SINUS: normal facial exam and face symmetric NOSE: Normal external nose present Eye: COMMON NORMALS: Equal, round and reactive pupils present and EOMs intact bilaterally PUPIL: Yes Equal, round and reactive pupils present Neck/C-Spine: GENERAL: Yes trachea midline Chest: CHEST: Yes Symmetrical chest wall rise Resp: COMMON NORMALS: normal respiratory effort, No retractions, No use of accessory muscles and clear to auscultation bilaterally AUSCULTATION: clear to auscultation bilaterally Cardio: COMMON NORMALS: regular rhythm RATE: tachycardic RHYTHM: regular rhythm GI: COMMON NORMALS: Normal to inspection, nondistended, normoactive bowel sounds present Extremity: COMMON NORMALS: no pedal edema Neuro: NOE COMA SCALE: document GCS findings Noe coma scale eye opening: Spontaneous Willard coma scale verbal response: Orientated [place]ard coma scale motor response: Obey commands Noe coma scale total score: 15 SENSORY EXAM: Yes extremities (intact) Psych: COMMON NORMALS: speech normal SPEECH: Yes normal speech Skin: COMMON NORMALS: no rashes or lesions noted GENERAL SKIN EXAM: no rashes or lesions noted Course Vital Signs: Vital signs: Vital Signs Temperature 98.3 F 01/16/25 02:22 Pulse Rate 96 01/16/25 04:45 Respiratory Rate 16 01/16/25 03:36 Blood Pressure 120/88 01/16/25 04:45 Pulse Oximetry 94 01/16/25 04:45 Oxygen Delivery Me thod Room Air 01/16/25 03:36 MDM - Anxiety Medical Decision Making Patient given a breathing treatment given her history of asthma. She was also given 2 mg of oral Ativan. She is resting comfortably now. CBC and BMP are normal. EKG shows sinus tachycardia on presentation. [place] is normal. Intervals are normal. No acute ST wave changes. Rate is 100. Chest x-ray is negative troponin and BNP are nondetectable. She will be discharged. To return for worsening symptoms. Lab Data 01/16/25 03:10 01/16/25 03:10 Radiology Impressions Chest X-Ray 01/16/25 02:56 IMPRESSION: No acute findings. Laboratory Results WBC 8.65 10^3/uL (3.29-11.43) 01/16/25 03:10 RBC 4.60 10^6/uL (3.85-5.65) 01/16/25 03:10 Hgb 14.50 g/dL (11.27-16.99) 01/16/25 03:10 Hct 43.5 % (36-47) 01/16/25 03:10 MCV 94.6 fl (85-98) 01/16/25 03:10 MCH 31.5 pg (27-33) 01/16/25 03:10 MCHC 33.3 g/dL (30-55) 01/16/25 03:10 RDW 12.7 % (12.1-15.1) 01/16/25 03:10 Plt Count 346 10^3/cmm (157-399) 01/16/25 03:10 MPV 8.6 fL (7.4-10.4) 01/16/25 03:10 Neut % (Auto) 50.7 % 01/16/25 03:10 Lymph % (Auto) 39.7 % 01/16/25 03:10 [place] % (Auto) 6.4 % 01/16/25 03:10 Eos % (Auto) 2.1 % 01/16/25 03:10 Baso % (Auto) 0.9 % 01/16/25 03:10 Neut # (Auto) 4.39 10^3/uL (1.8-7.7) 01/16/25 03:10 Lymph # (Auto) 3.4 10^3/uL (0.8-4.8) 01/16/25 03:10 [place] # (Auto) 0.6 10^3/uL (0.2-0.9) 01/16/25 03:10 Eos # (Auto) 0.2 10^3/uL (0.0-0.8) 01/16/25 03:10 Baso # (Auto) 0.1 10^3/uL (0.0-0.1) 01/16/25 03:10 Nucleated RBC % (auto) 0 % 01/16/25 03:10 Nucleated RBCs # 0.0 /100WBC 01/16/25 03:10 Sodium 142 mmol/L (136-145) 01/16/25 03:10 Potassium 4.3 mmol/L (3.5-5.1) 01/16/25 03:10 Chloride 104 mmol/L (98-107) 01/16/25 03:10 Carbon Dioxide 24 mmol/L (22-29) 01/16/25 03:10 Anion Gap 18.3 (5-19) 01/16/25 03:10 BUN 9 mg/dL (6-20) 01/16/25 03:10 Creatinine 0.6 mg/dL (0.5-0.9) 01/16/25 03:10 GFR Calculation 126.2 mL/min (90-130) 01/16/25 03:10 Glucose 85 mg/dL (65-115) 01/16/25 03:10 Calculated Osmolality 292 mOsm/kg (285-295) 01/16/25 03:10 Calcium 8.8 mg/dL (8.5-10.5) 01/16/25 03:10 Total Bilirubin 0.2 mg/dL (0.15-1.2) 01/16/25 03:10 AST 18 U/L (0-32) 01/16/25 03:10 ALT 10 U/L (0-33) 01/16/25 03:10 Alkaline Phosphatase 94 U/L (35-105) 01/16/25 03:10 Troponin T Baseline < 6 ng/L (0-10) 01/16/25 03:10 NT-Pro-B Natriuret Pep < 36 pg/mL (0-125) 01/16/25 03:10 Total Protein 7.2 g/dL (6.6-8.7) 01/16/25 03:10 Albumin 4.5 g/dL (3.5-5.2) 01/16/25 03:10 Globulin 2.7 g/dL (1.3-4.6) 01/16/25 03:10 XR interpretation done by ED provider, pending radiology final review Discharge Plan Discharge Patient Disposition: Home Clinical Impression: Acute anxiety Condition: Stable Prescriptions: No Action hydroxyzine HCl 25 mg tablet 25 mg PO BID PRN (Reason: anxiety) Qty: 60 2RF Rx Instructions: Take one tablet twice a day, if needed for anxiety Discharge Orders: Discharge ED (Routine); Ordered 01/16/25 Ordered By: Danis Clarke Referrals: Angeline Marmolejo PA [Primary Care Provider, [facility] Assistant Manager] - 1-3 days Patient Instructions: Anxiety (ED), Opioid Safety, Pain Management, Patient Portal & Sari Instructions Activity Restrictions/Additional Instructions: Return for new or concerning symptoms Print Language: Latvian Coding Level of Care Code ED Automation Operator for Sen Sanchez
[2025-01-16 04:41] VITALS: BP 120/83; PULSE 96; O2SAT 99
[2025-01-16 04:45] VITALS: BP 120/88; PULSE 96; O2SAT 94
== END 2025-01-16 04:54 | disposition home or self-care (01) ==
PROVIDERS: Emergency Provider Emergency Medicine; PCP Physician Assistant
DX: F41.8 Other specified anxiety disorders (principal)
CPT/HCPCS: 36415; 71045; 80053; 83880; 84484; 85025; 94640; 99285; J9999

== ENCOUNTER 2025-03-22 23:40 | Emergency (ER) | payer MEDICAID, SELFPAY ==
[2025-03-22 23:43] VITALS: BP 128/87; PULSE 113; RESP 17; TEMP 36.4; O2SAT 97; BMI 21.2
--- OUTSIDE RECORDS SUMMARY | 2025-03-22 23:46 | XMS_ITS | Data Portability ---
Author Organization AUDREY [facility], [facility] Address [address] [place] [address] Care Team Providers Care Guard Chief Name Role Phone ANGELINE MARMOLEJO Primary Care Provider Unavailabl e Assessment No assessment recorded. Plan of Treatment Reminders Order Date Submit Date Provider Last Modified By Organization Details Last Modified Time Details Appointments None recorded. Lab unlisted lab - sureswab(R) advanced vaginitis plus, tma 2024 025 [email or web address] [facility], [address] [place] [address], [address], [place], [address], 11:22:21 pap, LB 2024 025 [email or web address] [facility], [address] [place] [address], [address], [place], [address], 5 20:13:09 urinalysis, dipstick 2024 025 [email or web address] 47 [facility] ([facility]), [address] [place], [address], 5 07:53:09 culture, urine 2024 025 [email or web address] [facility], [address] [place] [address], [address], [place], [address], 5 02:19:46 vitamin D, 25-hydroxy, total, serum 2024 025 RANDY [email or web address], [address] [place] [address], [address], [place], [address], 5 09:35:53 vitamin B12, serum 2024 025 RANDY [email or web address], [address] [place] [address], [address], [place], [address], 5 09:35:51 folate, serum 2024 025 RANDY [email or web address], [address] [place] [address], [address], [place], [address], 5 09:35:47 vitamin B1 (thiamine), serum 2024 025 [email or web address] 1 [facility], [address] [place] [address], [address], [place], [address], 5 07:15:49 TSH, serum or plasma 2024 025 [employer] [facility], [address] [place] [address], [address], [place], [address], 5 09:35:49 T4, free, serum 2024 025 [employer] [facility], [address] [place] [address], [address], [place], [address], 5 09:35:48 T3, free, serum or plasma 2024 025 RANDY [email or web address], [address] [place] [address], [address], [place], [address], 5 09:35:52 CBC w/ auto diff 2024 025 [email or web address] 1 [facility], [address], [place], [address], 5 07:15:49 CMP, serum or plasma 2024 [email or web address] [facility], [address], [address] , [place], [address], 09:35:46 lithium, serum 2024 [employer] [facility], [address], [address], [place], [address], 09:35:54 Referral None recorded. Procedures None recorded. Surgeries None recorded. Imaging None recorded. Medication Orders cetirizine 10 mg tablet 2024 W[id number], [address], [place], [place], [id number], 13:22:41 fluticasone propionate 50 mcg/actuati on nasal spray,suspe nsion 2024 [facility], [address], [place], [place], [id number], 13:22:39 Advair Diskus 250 mcg-50 mcg/dose powder for inhalation 2024 [facility], [address], [place], [place], [id number], 13:22:40 Ventolin HFA 90 mcg/actuati on aerosol inhaler 2024 025 WARRENS [facility], [address], [place], [place], [id number], 13:22:40 fluconazole 150 mg tablet 2024 025 [facility], [address], [place], [place], [id number], 05:01:19 doxycycline hyclate 100 mg capsule 2024 025 RANDY [facility] #37326, [address], [place], [place], [id number], 05:01:57 ceftriaxone 500 mg solution for injection 2024 025 [email or web address] Not available 13:02:46 hydroxyzine HCl 25 mg tablet 2024 025 [email or web address] [facility] #58573, [address], [place], [place], [id number], 13:02:59 Patient TargetsNo targets recorded. Patient InstructionsNo instructions recorded. Reason for Referral None Reported. Results Created Date Observation Date Name Description Value Unit Range Abnormal Flag Note LastModifiedBy Organization Detail LastModifiedTime 07/27/1907/26/2024 CBC WBC 10.9 x10 4.0-10 .5 high Not Available [facility] [address] [facility] [address], [place], [address], 07/26/2024 15:59:26 07/27/19 25 07/26/2024 CBC RBC 4.07 x10 3.50-5 .50 Not Available [facility] [address] [facility] [address], [place], [address], 07/26/2024 15:59:26 07/27/19 25 07/26/2024 CBC HGB 14.1 g/dL 12.0-1 6.0 Not Available [facility] [address] [facility] 1, [place], [address], 07/26/2024 15:59:26 07/27/19 25 07/26/2024 CBC HCT 38.7 % 37.0-4 7.0 Not Available [facility] [address] [facility] 1, [place], [address], 07/26/2024 15:59:26 07/27/19 25 07/26/2024 CBC MCV 95.2 fL 80.0-9 9.9 Not Available [facility] [address] [facility] 1, [place], [address], 07/26/2024 15:59:26 07/27/19 25 07/26/2024 CBC MCH 34.6 pg 27.0-3 2.0 high Not Available [facility] [address] [facility], [place], [address], 07/26/2024 15:59:26 07/27/19 25 07/26/2024 CBC MCHC 36.4 g/dL 32.0-3 6.0 high Not Available [facility] [address] [facility], [place], [address], 07/26/2024 15:59:26 07/27/19 25 07/26/2024 CBC RDW 12.7 % 11.5-1 4.5 Not Available [facility] [address] [facility], [place], [address], 07/26/2024 15:59:26 07/27/19 25 07/26/2024 CBC plt 303.3 x10 140.0- 451.0 Not Available [facility] [address] [facility] 1, [place], [address], 07/26/2024 15:59:26 07/27/19 25 07/26/2024 CBC lymphocytes % 17.8 % 20.0-5 0.0 low Not Available [facility] [address] [facility] [address] [facility] 1, [place], [address], 07/26/2024 15:59:26 07/27/19 25 07/26/2024 CBC granulcytes % 73.2 % 30.0-7 0.0 high Not Available [facility] [address] [address], [place], [address], 07/26/2024 15:59:26 07/27/19 25 07/26/2024 CBC monocytes % 7.6 % 2.0-16 .0 Not Available [facility] [address] [address], [place], [address], 07/26/2024 15:59:26 07/27/19 25 07/26/2024 CBC granulcytes# 8.0 x10 Not Karina [facility]able [facility] [address] [address], [place], [address], 07/26/2024 15:59:26 07/27/19 25 07/26/2024 CBC lymphocytes # 2.0 x10 Not Available [address], [address], 07/26/2024 15:59:26 07/27/19 25 07/26/2024 CBC monocytes # 0.8 x10 Not Avai lable [address] [address], [place], [address], 07/26/2024 15:59:26 07/27/19 25 07/30/2024 COMPR EHENS YUNIOR METAB OLIC PANEL glucose 84 mg/dL 65-99 normal Fasti ng refer ence inter ritu Not Available [email or web address] [address] [place], [address], 07/30/2024 09:35:46 07/27/19 25 07/30/2024 COMPR EHENS YUNIOR METAB OLIC PANEL urea nitrogen (BUN) 10 mg/dL 7-[address] [facility] [address] [place], [address], 07/30/2024 09:35:46 07/27/19 25 07/30/2024 COMPR EHENS YUNIOR METAB OLIC PANEL creatinine 0.83 mg/dL 0.50-0 .96 normal Not Available [address], [address], 07/30/2024 09:35:46 07/27/19 25 07/30/2024 COMPR EHENS YUNIOR METAB OLIC PANEL eGFR 103 mL/mi n/1.7 3m2 > or = 60 normal Not Available [address], [address], 07/30/2024 09:35:46 07/27/19 25 07/30/2024 COMPR EHENS YUNIOR METAB OLIC PANEL BUN/creatini ne ratio SEE NOTE: (calc ) 6-22 Not Repor zoltan: BUN and Creat inine are withi n refer ence range . Not Available [address], [address], 07/30/2024 09:35:46 07/27/19 25 07/30/2024 COMPR EHENS YUNIOR METAB OLIC PANEL sodium 138 mmol/ L 135-14 6 normal Not Available [address], [address], 07/30/2024 09:35:46 07/27/19 25 07/30/2024 COMPR EHENS YUNIOR METAB OLIC PANEL potassium 3.9 mmol/ L 3.5-5. 3 normal Not Available [address], [address], 07/30/2024 09:35:46 07/27/19 25 07/30/2024 COMPR EHENS YUNIOR METAB OLIC PANEL chloride 105 mmol/ L 98-110 normal Not Available [address], [address], 07/30/2024 09:35:46 07/27/19 25 07/30/2024 COMPR EHENS YUNIOR METAB OLIC PANEL carbon dioxide 27 mmol/ L 20-32 normal Not Available [address], [address], 07/30/2024 09:35:46 07/27/19 25 07/30/2024 COMPR EHENS YUNIOR METAB OLIC PANEL calcium 10.0 mg/dL 8.6-10 .2 normal Not Available [address], [address], 07/30/2024 09:35:46 07/27/19 25 07/30/2024 COMPR EHENS YUNIOR METAB OLIC PANEL protein, total 7.7 g/dL 6.1-8. 1 normal Not Available [address], [address], 07/30/2024 09:35:46 07/27/19 25 07/30/2024 COMPR EHENS YUNIOR METAB OLIC PANEL albumin 4.9 g/dL 3.6-5. 1 normal Not Available [address], [address], 07/30/2024 09:35:46 07/27/19 25 07/30/2024 COMPR EHENS YUNIOR METAB OLIC PANEL globulin 2.8 g/dL_ (calc ) 1.9-3. 7 normal Not Available [address], [address], 07/30/2024 09:35:46 07/27/19 25 07/30/2024 COMPR EHENS YUNIOR METAB OLIC PANEL albumin/glob ulin ratio 1.8 (calc ) 1.0-2. 5 normal Not Available [address], [address], 07/30/2024 09:35:46 07/27/19 25 07/30/2024 COMPR EHENS YUNIOR METAB OLIC PANEL bilirubin, total 0.8 mg/dL 0.2-1. 2 normal Not Available [address], [place], [address], 07/30/2024 09:35:46 07/27/1907/30/2024 COMPR EHENS YUNIOR METAB OLIC PANEL alkaline phosphatase 60 U/L 31-125 normal Not Available [facility] [employer] [address], [address], 07/30/2024 09:35:46 07/27/1907/30/2024 COMPR EHENS YUNIOR METAB OLIC PANEL AST 16 U/L 10-30 normal Not Available [address], [address], 07/30/2024 09:35:46 07/27/1907/30/2024 COMPR EHENS YUNIOR METAB OLIC PANEL ALT 11 U/L 6-29 normal Not Available [address], [address], 07/30/2024 09:35:46 07/27/1907/30/2024 FOLAT E, SERUM folate, serum 17.2 NG/mL normal Refer ence Range Low: <3.4 Borde rline : 3.4-5 .4 Sapphire l: >5.4 Not Available [address], [address], 07/30/2024 09:35:47 07/27/1907/30/2024 T4, FREE T4, free 1.0 NG/dL 0.8-1. 4 normal Not Available [address], [address], 07/30/2024 09:35:48 07/27/1907/30/2024 TSH TSH 1.86 mIU/L normal Refer ence Range > or = 20 Years 0.40- 4.50 Pregn tsering Range s First trime ster 0.26- 2.66 Secon d trime ster 0.55- 2.73 Third trime ster 0.43- 2.91 Not Available [facility] [address], [place], [address], 07/30/2024 09:35:49 07/27/1907/30/2024 VITAM IN B12 vitamin B12 411 pg/mL 200-11 00 normal Not Available [facility] [address] [place], [address], 07/30/2024 09:35:51 07/27/1907/30/2024 T3, FREE T3, free 2.9 pg/mL 3.0-4. 7 low Not Available [facility] [address] [place], [address], 07/30/2024 09:35:52 07/27/1907/30/2024 VITAM IN D,25- OH,TO DAJUAN,I A vitamin D,25-oh,tota l,ia 31 NG/mL 30-100 normal Vitam in D Statu s 25-OH Vitam in D: Defic iency : <20 ng/mL Insuf ficie ncy: 20 - 29 ng/mL Optim al: > or = 30 ng/mL For 25-OH Vitam in D testi ng on patie nts on D2-pope pplem entat ion and patie nts for whom quant itati on of D2 and D3 fract ions is requi red, the [facility] e[facility](TM ) 25-OH VIT D, (D2,D 3), LC/MS /MS is recom miguel d: order code 15960 (nikole ents >2yrs ). See Note 1 Note 1 For addit ional infor eros kent refer to http: //kisha Umaña gnost ics.c om/fa q/FAQ 199 (This link is being provi ded for infor maikol santillan/ duncan wallace purpo ses only. ) Not Available [facility] [address] [place], [address], 07/30/2024 09:35:52 07/27/1907/30/2024 VITAM IN B1 (THIA MINE) , BLOOD , LC/MS /MS vitamin B1 (thiamine), blood, lc/MS/MS 132 nmol/ L 78-185 (Note ) Vitam in suppl ement ation withi n 24 hours prior to blood draw may affec t the accur acy of the resul ts. This test was devel oped and its bobby tical perfo rmanc e lucia cteri stics have been deter mined by [email or web address]. It has not been clear ed or appro griselda by FDA. This assay has been valid ated pursu ant to the CLIA regul ation s and is used for clini juan purpo ses. MDF med fusio n [address] [facility] [address] [facility] [address] [phone] Phoebe Keita MD, PhD Not Available [facility] [address] [place], [address], 07/30/2024 09:35:54 07/27/19 25 07/30/2024 LITHI UM lithium 1.3 mmol/ L 0.6-1. 2 high Not Available [email or web address] [address] [place], [address], 07/30/2024 09:35:54 09/06/19 25 09/07/2024 CULTU RE, URINE , ROUTI NE culture, urine, routine SEE NOTE abnormal CULTU RE, URINE , ROUTI NE Micro Numbe r: [id number] Test Statu s: Final Speci men Sourc e: Urine Speci men Quali ty: Adequ ate Resul t: Great er than 100,0 00 CFU/m L of Staph yloco ccus sapro phyti cus [facility] ([facility] ) does not advis e routi ne susce ptibi lity testi ng of urine isola anatoly of S. sapro phyti cus becau se infec tions respo nd to urina ry darlene ntrat ions of agent s commo nly used to treat acute , uncom plica zoltan UTI such as nitro furan toin, trime thopr im-pope lfame thoxa zole or a fluor oquin olone . COMME NT: Addit ional non-p redom inati ng organ ism(s ) isola zoltan. These organ isms, commo nly found on exter nal and inter nal genit lori, are consi dered colon izers . No furth er testi ng perfo rmed. Not Available [facility] [address] [place], [address], 09/07/2024 02:19:43 09/06/19 25 09/05/2024 urina lysis , dipst ick Leukocytes Small Not Available [facility] [address] [place] [address], [address], 09/05/2024 13:23:03 09/06/19 25 09/05/2024 urina lysis , dipst ick Nitrite negati ve Not Available [facility] ([facility]) [address] [place] [address], [address], 09/05/2024 13:23:03 09/06/19 25 09/05/2024 urina lysis , dipst ick Urobilinogen 1 Not Available [facility] ([facility]) [address] [place] [address], [address], 09/05/2024 13:23:03 09/06/19 25 09/05/2024 urina lysis , dipst ick Protein 100 Not Available [facility] ([facility]) [address] [place], [address], 09/05/2024 13:23:03 09/06/19 25 09/05/2024 urina lysis , dipst ick pH 8.5 Not Available [facility] ([facility]) [address] [place] [address], [address], 09/05/2024 13:23:03 09/06/19 25 09/05/2024 urina lysis , dipst ick Blood Hemoly zed: Trace Not Available [facility] ([facility]) [address] [place], [address], 09/05/2024 13:23:03 09/06/19 25 09/05/2024 urina lysis , dipst ick Specific [place] 1.020 Not Available [facility] ( [facility]) [address] [place], [address], 09/05/2024 13:23:03 09/06/19 25 09/05/2024 urina lysis , dipst ick Ketone Negati ve Not Available [facility] ([facility]) [address] [place], [address], 09/05/2024 13:23:03 09/06/19 25 09/05/2024 urina lysis , dipst ick Bilirubin Negati ve Not Available [facility] ([facility]) [address] [place], [address], 09/05/2024 13:23:03 09/06/19 25 09/05/2024 urina lysis , dipst ick Glucose Negati ve Not Available [facility] ([facility]) [address] [place], [address], 09/05/2024 13:23:03 09/06/19 25 09/05/2024 urina lysis , dipst ick Appearance Clear Not Available [facility] ( [facility]) [address] [place], [address], 09/05/2024 13:23:03 09/06/19 25 09/05/2024 urina lysis , dipst ick Color Yellow Not Available [facility] [address] [place], [address], 09/05/2024 13:23:03 10/29/19 25 10/29/2024 SURES WAB(R ) ADVAN SIDNEY VAGIN ITIS PLUS, TMA sureswab(R) adv bacterial vaginosis (bv), tma POSITI VE negati ve abnormal Not Available [facility] [address], [address], 10/29/2024 11:22:21 10/29/19 25 10/29/2024 SURES WAB(R ) ADVAN SIDNEY VAGIN ITIS PLUS, TMA dago species DETECT ED not detect ed abnormal Not Available [facility] [address], [address], 10/29/2024 11:22:21 10/29/19 25 10/29/2024 SURES WAB(R ) ADVAN SIDNEY VAGIN ITIS PLUS, TMA dago glabrata NOT DETECT ED not detect ed normal Yael da speci es C. albic ans, C. tropi calis , C. parap nkechi is, and/o r C. dubli niens is can be detec zoltan, but not diffe renti ated, in the Yael da spp. resul t. Not Available [facility] [address], [address], 10/29/2024 11:22:21 10/29/19 25 10/29/2024 SURES WAB(R ) ADVAN SIDNEY VAGIN ITIS PLUS, TMA trichomonas vaginalis (TV), tma NOT DETECT ED not detect ed normal Not Available [facility] [address], [address], 10/29/2024 11:22:21 10/29/19 25 10/29/2024 SURES WAB(R ) ADVAN SIDNEY VAGIN ITIS PLUS, TMA chlamydia trachomatis RNA, tma, urogenital NOT DETECT ED not detect ed normal Not Available [facility] [address], [address], 10/29/2024 11:22:21 10/29/19 25 10/29/2024 SURES WAB(R ) ADVAN SIDNEY VAGIN ITIS PLUS, TMA neisseria gonorrhoeae RNA, tma, urogenital NOT DETECT ED not detect ed normal For addit ional infor eros kent refer to https ://ed ucati on.qu clarissa ye [employer]. com/f aq/FA Q154 (This link is being provi ded for infor maikol salazar/ duncan wallace purpo ses only. ) Not Available [address], [address], 10/29/2024 11:22:21 10/29/19 25 11/01/2024 IMAGE -GUID ED PAP W/AGE BASED SCR JESSI COLS comment This order for age-b ased cervi juan cance r and STI scree augusta follo ws ACOG guide lines (PB 168, 140, FAQ07 1). See indiv idual assay s for perfo rming site locat ion. Not Available [address], [address], 11/01/2024 20:13:09 10/29/1911/01/2024 IMAGE -GUID ED PAP W/AGE BASED SCR JESSI COLS clinical information: normal Sapphire l exam Not Available [address], [address], 11/01/2024 20:13:09 10/29/19 25 11/01/2024 IMAGE -GUID ED PAP W/AGE BASED SCR JESSI COLS LMP: normal NONE GIVEN Not Available [address], [address], 11/01/2024 20:13:09 10/29/1911/01/2024 IMAGE -GUID ED PAP W/AGE BASED SCR JESSI COLS prev. Pap: normal NONE GIVEN Not Available [address], [address], 11/01/2024 20:13:09 10/29/19 25 11/01/2024 IMAGE -GUID ED PAP W/AGE BASED SCR JESSI COLS prev. BX: normal NONE GIVEN Not Available [address] [address] [place], [address], 11/01/2024 20:13:09 10/29/19 25 11/01/2024 IMAGE -GUID ED PAP W/AGE BASED SCR JESSI COLS source: normal Cervi x, Endoc ervix Not Available [address] [address] [place], [address], 11/01/2024 20:13:09 10/29/19 25 11/01/2024 IMAGE -GUID ED PAP W/AGE BASED SCR JESSI COLS statement of adequacy: normal Satis facto ry for evalu ation . Endoc ervic al/tr ansfo rmati on zone compo nent prese nt. Age and/o r menst rual statu s not provi ded Not Available [address] [address] [place], [address], 11/01/2024 20:13:09 10/29/19 25 11/01/2024 IMAGE -GUID ED PAP W/AGE BASED SCR JESSI COLS interpretati on/result: normal Cytol ogy Resul ts: Negat yunior for intra epith elial lesio n or malig kevin . Not Available [address] [address] [place], [address], 11/01/2024 20:13:09 10/29/19 25 11/01/2024 IMAGE -GUID ED PAP W/AGE BASED SCR JESSI COLS infection: normal Funga l organ isms morph ologi yehuda consi stent with Yael da spp. Shift in vagin al franchesca sugge stive of bacte rial vagin osis. Not Available [address] [address] [place], [address], 11/01/2024 20:13:09 10/29/19 25 11/01/2024 IMAGE -GUID ED PAP W/AGE BASED SCR JESSI COLS comment: normal This Pap test has been evalu ated with compu ter valerie zoltan techn ology . Not Available [facility] [address] [address] [place], [address], 11/01/2024 20:13:09 10/29/1911/01/2024 IMAGE -GUID ED PAP W/AGE BASED SCR JESSI COLS cytotechnolo gist: normal ABC, CT( CP) CT scree augusta locat ion: [address] [address] [place] [address] Not Available [facility] [address] [address] [place], [address], 11/01/2024 20:13:09 10/29/1911/01/2024 IMAGE -GUID ED PAP W/AGE BASED SCR JESSI COLS comment EXPLA NATOR Y NOTE: The Pap is a scree augusta test for cervi juan cance r. It is not a diagn ostic test and is subje ct to false negat yunior and false posit yunior resul ts. It is most relia ble when a satis facto ry sampl e, regul yi obtai ish, is submi tted with relev ant clini juan findi ngs and histo ry, and when the Pap resul t is evalu ated along with histo malena and curre nt clini juan infor matio n. Not Available [facility] [address] [address] [place], [address], 11/01/2024 20:13:09 10/29/1911/01/2024 IMAGE -GUID ED PAP W/AGE BASED SCR JESSI COLS chlamydia trachomatis RNA, tma, urogenital NOT DETECT ED not detect ed normal Not Available [address] [address] [place], [address], 11/01/2024 20:13:09 10/29/1911/01/2024 IMAGE -GUID ED PAP W/AGE BASED SCR JESSI COLS neisseria gonorrhoeae RNA, tma, urogenital NOT DETECT ED not detect ed normal Not Available [facility] [address] [address] [place], [address], 11/01/2024 20:13:09 10/29/19 25 11/01/2024 IMAGE -GUID ED PAP W/AGE BASED SCR JESSI COLS comment The bobby tical perfo rmanc e lucia cteri stics of this assay , when used to test SureP ath(T M) speci mens have been deter mined by [email or web address]. The modif icati ons have not been clear ed or appro griselda by the FDA. This assay has been valid ated pursu ant to the CLIA regul ation s and is used for clini juan purpo ses. For addit ional infor eros kent e refer to https ://ed ucati on.qu estCircle of Moms. VirtualU/f aq/FA Q154 (This link is being provi ded for infor maikol salazar/ educroverto bell l purpo ses only. ) Not Available [facility] [address] [place], [address], 11/01/2024 20:13:09 Result Notes None recorded. Problems Name Problem SNOMED Code Status Onset Date Resolution Date Notes Provider Name and Address Organization Details Recorded Time Moderate persistent asthma 847136135 Active 024 MELVINA varghese [facility], L.L.CShadia 5 19:23:38 Anxiety 69423985 Active 025 MELVINA varghese [facility], L.L.CShadia 5 19:23:27 Problem Notes None recorded. Procedures Surgical History Date Name Laterality Status Provider Name and Address Organization Details Recorded Time screening for malignant neoplasm of cervix completed MELVINA MACKAY [facility], L.L.CShadia 11/02/2024 14:17:12 Eye Surgery completed Theresa Samuel [facility], L.L.CShadia 08/28/2023 13:07:11 Imaging Results None recorded. Procedure Notes None recorded. Medical Equipment None Reported. Allergies No known drug allergies Medications Name Sig Start Date Stop Date Status Note LastModified by Organization Details LastModified Time buspirone 5 mg tablet TAKE 1 TABLET BY MOUTH THREE TIMES DAILY NEEDED FOR ANXIETY 06/11 completed Not Available Not Available Not Available lamotrigine 150 mg tablet TAKE 1 TABLET BY MOUTH EVERY MORNING. STOP IF RASH OCCURS AND GOTO ER 04/28 completed Not Available Not Available Not Available venlafaxine ER 37.5 mg capsule,ext ended release 24 hr TAKE 1 CAPSULE BY MOUTH DAILY 03/03 completed Not Available Not Available Not Available venlafaxine ER 75 mg capsule,ext ended release 24 hr TAKE 1 CAPSULE BY MOUTH DAILY 03/03 completed Not Available Not Available Not Available gabapentin 600 mg tablet 07/26 completed Not Available Not Available Not Available doxycycline hyclate 100 mg capsule Take 1 capsule twice a day by oral route for 7 days. 11/11 completed Not Available Not Available Not Available lamotrigine 200 mg tablet 1 qd 05/26 completed Not Available Not Available Not Available nicotine 14 mg/24 hr daily transdermal patch Apply 1 patch every day by transderm al route. 08/27 completed Not Available Not Available Not Available trazodone 50 mg tablet TAKE ONE TABLET BY MOUTH at bedtime NEEDED FOR SLEEP FOR 30 DAYS 06/11 completed Not Available Not Available Not Available cetirizine 10 mg tablet TAKE 1 TABLET BY MOUTH EVERY DAY IN THE EVENING active Not Available Not Available No t Available fluconazole 150 mg tablet Take 1 tablet every day by oral route for 1 day. 11/05 completed Not Available Not Available Not Available gabapentin 400 mg capsule 1 tid 07/26 completed Not Available Not Available Not Available venlafaxine ER 150 mg capsule,ext ended release 24 hr TAKE 1 CAPSULE BY MOUTH DAILY 01/27 completed Not Available Not Available Not Available thiamine HCl (vitamin B1) 100 mg tablet Take 1 tablet every day by oral route. 08/27 completed Not Available Not Available Not Available hydroxyzine pamoate 50 mg capsule TAKE 1 CAPSULE BY MOUTH EVERY 6 HOURS NEEDED 01/27 completed Not Available Not Available Not Available lithium carbonate ER 300 mg tablet,exte nded release TAKE 2 TABLETS BY MOUTH EVERY MORNING AND 2 TABLETS BY MOUTH EVERY NIGHT AT BEDTIME 10/28 completed Not Available Not Available Not Available metronidazo le 500 mg tablet Take 1 tablet twice a day by oral route for 7 days. 11/15 completed Not Available Not Available Not Available ciprofloxac in 500 mg tablet TAKE 1 TABLET BY MOUTH TWICE DAILY FOR 5 DAYS 10/28 completed Not Available Not Available Not Available quetiapine 100 mg tablet 01/27 completed Not Available Not Available Not Available lithium carbonate ER 450 mg tablet,exte nded release 1 bid 07/26 completed Not Available Not Available Not Available lamotrigine 25 mg tablet 06/11 completed Not Available Not Available Not Available lithium carbonate 300 mg capsule 01/27 completed Not Available Not Available Not Available Advair Diskus 250 mcg-50 mcg/dose powder for inhalation INHALE 1 PUFF BY MOUTH TWICE DAILY AROUND THE CLOCK active Not Available Not Available No t Available bupropion HCl 75 mg tablet 03/03 completed Not Available Not Available Not Available gabapentin 300 mg capsule 03/03 completed Not Available Not Available Not Available montelukast 10 mg tablet TAKE 1 TABLET BY MOUTH EVERY DAY 10/28 completed Not Available Not Available Not Available hydroxyzine HCl 25 mg tablet TAKE 1 TABLET BY MOUTH TWICE DAILY NEEDED active Not Available Not Available No t Available ceftriaxone 500 mg solution for injection Take 500 mg every day by injection route for 1 day. 01/04 completed Not Available Not Available Not Available zolpidem 5 mg tablet TAKE 1 TABLET BY MOUTH EVERY NIGHT AT BEDTIME 06/11 completed Not Available Not Available Not Available gabapentin 100 mg capsule TAKE 1 CAPSULE BY MOUTH TWICE DAILY NEEDED 11/11 completed Not Available Not Available Not Available Ativan 0.5 mg tablet Take 1 tablet every 8 hours by oral route as needed. 06/08 completed Not Available Not Available Not Available fluticasone propionate 50 mcg/actuati on nasal spray,suspe nsion SHAKE LIQUID AND USE 2 SPRAYS IN EACH NOSTRIL EVERY DAY IN THE MORNING active Not Available Not Available No t Available lamotrigine 100 mg tablet TAKE 1 TABLET BY MOUTH DAILY 07/14 completed Not Available Not Available Not Available nicotine 7 mg/24 hr daily transdermal patch Apply 1 patch every day by transderm al route. 08/27 completed Not Available Not Available Not Available Ventolin HFA 90 mcg/actuati on aerosol inhaler INHALE 2 PUFFS BY MOUTH EVERY 4 HOURS NEEDED active Not Available Not Available No t Available bupropion HCl XL 150 mg 24 hr tablet, extended release 04/28 completed Not Available Not Available Not Available mirtazapine 7.5 mg tablet TAKE 1 TABLET BY MOUTH AT BEDTIME 11/11 completed Not Available Not Available Not Available nitrofurant oin monohydrate /macrocryst als 100 mg capsule TAKE 1 CAPSULE BY MOUTH EVERY 12 HOURS 04/28 completed Not Available Not Available Not Available buspirone 10/28 completed Not Available Not Available Not Available aripiprazol e 2 mg tablet TAKE 1/2 TABLET BY MOUTH EVERY MORNING FOR 7 DAYS THEN TAKE 1 TABLET BY MOUTH EVERY MORNING 06/11 completed Not Available Not Available Not Available quetiapine 400 mg tablet TAKE 1 TABLET BY MOUTH EVERY NIGHT AT BEDTIME 06/11 completed Not Available Not Available Not Available Symbicort 160 mcg-4.5 mcg/actuati on HFA aerosol inhaler Inhale 2 puffs twice a day by inhalatio n route. 07/14 completed Not Available Not Available Not Available lurasidone 40 mg tablet 07/26 completed Not Available Not Available Not Available Latuda 20 mg tablet Take 1 tablet every day by oral route. 07/26 completed Not Available Not Available Not Available cefixime 400 mg capsule TAKE 2 CAPSULES BY MOUTH EVERY DAY FOR 1 DAY active Not Available Not Available No t Available Vitals Date Recorded Body height Body mass index (BMI) [Percentile] Per age and sex Body mass index (BMI) Body weight Oxygen saturation Oxygen saturation in Arterial blood by Pulse oximetry Heart rate Respiratory rate Body temperature Systolic And Diastolic Provider Name and Address Organization Details Last Updated DateTime 149.86 cm 30 % 20.2 kg/m2 95810.2 4 g 99 % 99 % 80 /min 18 /min 98 [degF] 100/70 mm[Hg] MELVINA MACKAY [facility] 5 14:08:53 Date Recorded Body height Body temperature Heart rate Oxygen saturation Oxygen saturation in Arterial blood by Pulse oximetry Systolic And Diastolic Provider Name and Address Organization Details Last Updated DateTime 5 149.86 cm 98.4 [degF] 81 /min 99 % 99 % 118/64 mm[Hg] [facility] 5 13:39:38 Date Recorded Body height Body mass index (BMI) Body mass index (BMI) [Percentile] Per age and sex Body weight Body temperature Heart rate Oxygen saturation Oxygen saturation in Arterial blood by Pulse oximetry Systolic And Diastolic Provider Name and Address Organization Details Last Updated DateTime 5 149.86 cm 20.3 kg/m2 31 % 92757.3 4 g 98.6 [degF] 98 /min 99 % 99 % 122/70 mm[Hg] [facility] 5 13:19:13 Date Recorded Body height Body mass index (BMI) Body weight Oxygen saturation Oxygen saturation in Arterial blood by Pulse oximetry Heart rate Respiratory rate Body temperature Systolic And Diastolic Provider Name and Address Organization Details Last Updated DateTime 5 149.86 cm 21.2 kg/m2 64290.2 g 99 % 99 % 80 /min 18 /min 98 [degF] 120/70 mm[Hg] MELVINA MACKAY [facility] 5 10:43:34 Date Recorded Body height Body mass index (BMI) Body weight Respiratory rate Oxygen saturation Oxygen saturation in Arterial blood by Pulse oximetry Heart rate Body temperature Systolic And Diastolic Provider Name and Address Organization Details Last Updated DateTime 5 149.86 cm 20.9 kg/m2 46504.1 1 g 17 /min 98 % 98 % 105 /min 98.5 [degF] 118/74 mm[Hg] MATTHEW ELIAS [facility] 5 13:02:28 Social History Question Answer Notes LastModified by Organizat ion Details LastModified Time Tobacco Smoking Status Former Smoker MATTHEW CURT null, [facility] 01/04/2025 13:04:16 Which Illicit Or Recreational Drugs Have You Used? Marijuana Information not available 08/28/2023 What Was The Date Of Your Most Recent Tobacco Screening? 01/04/2025 Information not available 01/04/2025 Has Tobacco Cessation Counseling Been Provided? Yes [email or web address] Information not available 07/14/2023 On What Date Was Tobacco Cessation Counseling Provided? 07/14/2023 [email or web address] Information not available 07/14/2023 Have You Used IV Drugs? No Information not available 08/28/2023 How Many Years Have You Used E-cigarettes Or Vape? 2 [email or web address] Information not available 07/14/2023 Sex: Unknown Functional Status Question Answer Note LastModified by Organizat ion Details LastModified Time Do you use any illicit or recreational drugs? Yes Information not available 08/28/2023 Do you or have you ever used any other forms of tobacco or nicotine? Yes [email or web address] Information not available 07/14/2023 What is your level of alcohol consumption? None Information not available 08/28/2023 Do you or have you ever used smokeless tobacco? Never used smokeless tobacco Information not available 07/14/2023 Do you or have you ever used e-cigarettes or vape? Current user of electronic cigarettes [email or web address] Information not available 07/14/2023 Do you or have you ever used any nicotine-free cigarettes, vape, or chewing tobacco? No Information not available 01/04/2025 Mental Status None recorded. Family History Nothing Reported. Medical History Condition Response Coronary Artery Disease N Other N Gout N Kidney Stones N Blood Diseases N Hyperthyroidism N Breast Cancer N Blood Transfusion N Depression N Hypothyroidism N Lung Disease N COPD N Defects or Inherited Disease N Developmental or Behavioral Disorders N Breast Problem N Difficulty Swallowing N Anesthesia Complications N Meniere's disease N Anxiety Disorder N Muscle, Joint, or Bone Problems N Vision or Eye Problems N Arthritis N Polyps N Infertility N Cancer N Varicosities N Stroke N Endometriosis N Bladder or Kidney Problems N High Cholesterol N Liver Disease N Fibromyalgia N Headaches N Kidney Disease N Allergies/Hayfever N Heart Problems N Ear or Hearing Problems N Hospitalizations N Thyroid Problems N GI Problems N ADD/ADHD N Skin Problems N Eating Disorder N Anemia N Constipation N Mental Illness N Ovarian Cancer N Diabetes N Bedwetting N Seizures/Epilepsy N Tuberculosis N Eczema N Diverticulitis N Abuse/Domestic Violence N Asthma Y Reflux/GERD N Hepatitis N Heart Disease N Pulmonary Embolism N Pre-Eclampsia N Hypertension N Chronic Ear Infections N Osteoporosis N Chicken Pox N Autism Spectrum Disorder (ASD) N Thrombophilias N Gynecological History Statement/Question Response Menses Monthly Y STIs/STDs N Current Control Method Condoms Sexually Active? Y On BCP's at Conception? N Obstetrics History GPAL:G 0 P 0 0 0 0 Immunizations Vaccine Type Date Status Note Provider Nam e and Address Organization Details Recorded Time Tdap 7 completed ANGELINE MARMOLEJO PA-C [address] [place] [address], [phone], [facility] 11/12/2023 11:25:25 meningococcal MCV4P 1 completed ANGELINE MARMOLEJO PA-C [address] [place] [address], [phone], [facility] 11/12/2023 11:25:25 meningococcal MCV4P 7 completed ANGELINE MARMOLEJO PA-C [address] [place] [address], [phone], [facility] 11/12/2023 11:25:25 Past Encounters Encounter ID Performer Location Encounter Start Date Encounter Closed Date Diagnosis/Indication Diagnosis SNOMED-CT Code Diagnosis ICD10 Code Diagnosis IMO Codes Diagnosis Note [id number] LUISA BENNETT [facility] ([facility]) [address] [place] [address] 04/28/2023 13:15:16 05/25/2023 08:48:46 Diarrhea 71458261 R19.7 Discussed with patient that the diarrhea can be viral but could also be associated with her medication s. Reassured with a normal exam today. Discussed with patient that she should follow up with her psychiatri st if the diarrhea persists. If abdominal pain becomes severe or the diarrhea worsens, should return for further evaluation or go to ED. Patient is agreeable to plan of care and verbalizes understand ing. Fibroadeno ma of bilateral breasts [id number] 4341524 D24.1 Discussed with patient that I suspect these lumps are fibroadeno mas. However, due to pain, will refer to OBGYN per patient request for further evaluation and re-assuran ce. [id number] LUISA BENNETT [facility] ([facility]) [address] [place] [address] 05/05/2023 16:49:56 05/24/2023 06:38:33 Missed period 90438876 N92.5 Negative UPT today. Will check beta-HCG quantitati ve today and will call patient with results. Discussed with patient that she should follow up with PCP in 1-2 weeks if she does not start her menstrual cycle. She should continue her daily medication s as prescribed at this time. Will call with results in 2-3 days. Patient is agreeable to plan of care. [id number] ANGELINE MARMOLEJO PA-C [facility] ([facility]) [address] [place] [address] 06/11/2023 10:59:42 06/11/2023 12:10:44 Moderate persistent asthma 304971966 J45.40 Borderline personality disorder 18765979 F60.3 managed by [facility] [place] [facility] [place] [id number] ANGELINE MARMOLEJO PA-C [facility] ([facility]) [address] [place] [id number] 07/14/2023 11:25:38 07/14/2023 12:51:37 Moderate persistent asthma 835332109 J45.40 Nicotine dependence 5629 4008 F17.200 Thiamine deficiency 3993 70747 E51.9 [id number] POLLO AUSTIN [facility] ([facility]) [address] [place] [id number] 08/28/2023 12:58:13 08/28/2023 13:54:44 Sore throat 417944587 J02.9 Viral uppe r respiratory tract infection 169083218 J06.9 Neg strep today. Patient presented with symptoms of upper respirator y infection. Advised to drink plenty of fluids, run a cool-mist humidifier in room at night, gargle salt water for sore throat, and get plenty of rest. Patient should avoid over-exert ion and reduce exposure to irritants such as smoke, cold, dry air, and dust. Treatment currently involves symptomati c relief. Patient may take acetaminop hen or ibuprofen as directed to reduce fever and body aches. Antihistam ine and decongesta nt usage was discussed and recommenda tions made. Patient understood these instructio ns and will follow up in the office in 10 days to 2 weeks if symptoms not improving. [id number] ANGELINE MARMOLEJO PA-C [facility] ([facility]) [address] [place] [address] 11/12/2023 11:02:31 11/27/2023 10:23:34 Mixed anxiety and depressive disorder 244576321 F41.8 Pt forms filled out for her [facility] [employer] she is trying to get into. See scanned documents. 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 Ware.Will see if I can get her in to Monique Allred LCSW here at for counseling Moderate p ersistent asthma 652945386 J45.40 Borderline personality disorder 31522714 F60.3 managed by [facility] [place] [facility] [id number] Estuardo Coburn MD [facility] ([facility]) [address] [place] [address] 03/03/2024 10:54:08 03/03/2024 17:41:00 Dysuria 12248901 R30.0 UA was obtained and did show small amount of blood. On her symptoms we will treat for UTI as we await culture. Will also send urine for STD testing. Safe sex practices. Patient was instructed to avoid all sexual activity until results are back. Acute pelvic pain 861184 005 R10.2 The patient does have significan t pelvic discomfort on exam. Based on last menstrual period this could very well be an ovulation cyst. Will go ahead and obtain an ultrasound . Microscopic hematuria 19 4837585 R31.29 [id number] Estuardo Coburn MD [facility] ([facility]) [address] [place] [address] 03/08/2024 10:32:12 03/08/2024 13:34:32 Pelvic and perineal pain 700963623 R10.2 [id number] ANGELINE MARMOLEJO PA-C [facility] ([facility]) [address] [place] [id number] 04/28/2024 11:59:25 04/28/2024 12:57:45 Migraine 10499926 G43.909 worsening COSTA now occuring daily. mood changes. foggy thinking.n o double vision, no falls, no numbness. Change in personality 19 7065782 F69 [id number] Estuardo Coburn MD [facility] ([facility]) [address] [place] [id number] 05/19/2024 13:14:16 05/21/2024 18:32:08 Anxiety 88934153 F41.9 Patient has tried multiple as needed anxiolytic s in the past as been very successful . Will provide a short course of Ativan today to help with her symptoms until she can get into see [facility]. [id number] ANGELINE MARMOLEJO PA-C [facility] ([facility]) [address] [place] [id number] 05/26/2024 14:41:24 06/10/2024 16:10:50 Borderline personality disorder 24977976 F60.3 managed by [facility] [place] [facility] Bipolar II disorder 8322 5006 F31.81 told her we may occational ly fill her ATivan but very sparingly and not on a chronic daily basis.She is getting a counselor. [id number] ANGELINE MARMOLEJO PA-C [facility] ([facility]) [address] [place] [id number] 5 06/08/2024 14:02:09 06/20/2024 07:58:41 Bipolar II disorder 91816271 F31.81 told her we may occational ly fill her ATivan but very sparingly and not on a chronic daily basis.She is getting a counselor. Her meds are managed by [facility] Borderline personality disorder 80770174 F60.3 Moderate p ersistent asthma 054543352 J45.40 [id number] ANGELINE MARMOLEJO PA-C [facility] ([facility]) [address] [place] [address] 07/26/2024 14:05:00 07/26/2024 14:38:25 Anxiety 05052631 F41.9 Moderate p ersistent asthma 852735083 J45.40 Long-term current use of drug therapy 451643944 Z79.899 Medication monitoring 39 8075671 Z51.81 [id number] POLLO AUSTIN [facility] ([facility]) [address] [place] [address] 5 09/03/2024 13:31:11 09/03/2024 23:20:50 Anxiety 29977990 F41.9 79926 Discussed use of PRN hydroxyzin e. Continue lithium as prescribed . Keep appt scheduled on Thursday.If you develop SI or HI then f/u in ER [id number] Carlito Trejo DO [facility] ([facility]) [address] [place] [address] 09/05/2024 13:06:44 09/05/2024 14:22:13 Flank pain 096186277 R10.9 65289 Cyst of right ovary 1223 358686 6055958 N83.201 [id number] concern for acute flairup. continue heating pad, tylenol and IBU. pt to increase IBU to 600mg po TiD Otc. expect improvemen t over the next 3-5 days, if worsening go to ER, if not improved by then, come in for f/u appt with pcp, may need US. counseled [id number] ANGELINE MARMOLEJO PA-C [facility] ([facility]) [address] [place] [id number] 5 10/28/2024 10:39:37 10/28/2024 15:34:04 Vaginal discharge 343546764 N89.8 [id number] concern from mild PID> Will tx her while waiting for results of STIs. Gynecologi c examination 25184998 Z01.711 [id number] High risk heterosexual behavior [id number] 41357 Z72.51 2341670 Exposure t o Neisseria gonorrhoeae 619115130 Z20.2 398777 [id number] POLLO DAWSON [facility] ([facility]) [address] [place] [address] 01/04/2025 12:54:31 01/04/2025 13:27:16 Environmental allergy 876658876 Z91.09 [id number] May use meds like zyrtec and fluticason e nasal spray as needed for symptoms. Return to clinic with any new or worsening symptoms. Moderate p ersistent asthma 791518231 J45.40 refills given. Follow up with Angeline Marmolejo PCP Health Concerns Section Related Observation LastModified by Organization Detai ls LastModified Time None Recorded Concern Status LastModified by Organization Details LastModified Time None Recorded Advance Directives Directive None Recorded Payers Insurance Date Sequence Insurance Name Policy Number Policy Ovalle Covered Member ID Ovalle Member ID Guarantor Name 02/25/2025 [facility] (MEDICAID HMO) Johanne Wolfe [id number] Johanne Wolfe 11/01/2024 1 [facility] () Anthony Wolfe [id number] Johanne Wolfe 05/26/2023 1 FOR LIFE () Johanne Halflul [id number] Johanne Halflul 03/09/2025 1 [facility] (MEDICAID HMO) Johanne Wolfe [id number] Johanne Wolfe 03/09/2025 [place] Johanne Wolfe [id number] Johanne Wolfe Notes Date Note Type Note Provider Name and Address Organization Details Recorded Time 07/26/2024 text/html FatigueReported by PatientHPIFor associated symptoms, patient reportsdepressionandan xiety. For quality, patient reportsgeneralized. For severity, patient reportsmoderate. For duration, patient reportsconstant. For timing, patient reportsgradual. I would like to have my vitamin levels checked. I stopped some of my meds and I feel much better.The gabapentin was making her feel more angry. Now just on the [place] [employer]. needs her levels checked as well. Sees [facility] for med managememt. ANGELINE MARMOLEJO PA-C [address] [place], [address], [facility] 07/26/2024 14:32:41 09/03/2024 text/html Generalized Anxi ety DisorderReported by PatientROS as noted in the HPI walk in ptPt hasn't eaten for 2 days due to her anxiety and is not sleeping. Has an appt to see her psychiatrist on Thursday. Denies SI or HI. States there was no trigger. Currently takes [place] [employer] daily. Last dose adjustment was about 4-5 weeks ago. POLLO AUSTIN [address] [place] [address], [phone], [facility] 09/03/2024 14:06:22 09/05/2024 text/html walk in ptPT is having mid to lower back pain that started 4 days ago. Vomited last night and this morning. she was seen here 2 days ago for severe anxiety. She had f/u this AM by her psychiatrist, added buspirone to her lithium. no hx of kidney stone. some urinary frequency but no hematuria. chronic unchanged constipation.Last BM was this AM, but only a small amount, before that was several days. Carlito Trejo, DO [address] [place], [phone], [facility] 09/05/2024 14:18:56 10/28/2024 text/html Vaginal DischargeReported by PatientHPIFor associated symptoms, patient reportsvaginal burning,swelling/redne ss,abdominal pain, andpelvic pain. For location, patient reportsvagina. For quality, patient reportswhiteandcurd-amy man. For severity, patient reportsmoderate. For duration, patient reports5 days. For onset/timing, patient reportsdaily. For context, patient reportsnew sexual partner,multiple sexual partners, andcondom use: no.no external lesions. I had sex with a new partner , my boyfriend and I are off and on so I need checked for everything std winn.Now having alot of discharge, pain in vaginal area and lower abdomen. I went off all my meds a couple months ago didn't think they were working. I still see therapist. I think I just need something prn for anxiety. ANGELINE MARMOLEJO PA-C [address] [place], [address], [facility]. 10/28/2024 15:28:44 01/04/2025 text/html ROS as noted in the HPI walk-in; PCP Angeline Marmolejo Patient states she works at [employer] and all the AC units have black mold. Over the past month and a half, her throat salter, nose salter and eyes itch and water while she's at work. Does not have the symptoms when she's at home. She's also fatigued and will get headaches at work. Also is needing refills on her medications. POLLO DAWSON [address] [place], [address], [facility] [place]. 01/04/2025 13:23:13 OBGyn Episode No OBEpisode recorded.
--- NOTE | 2025-03-23 01:39 | W.ED.ANXIETY ---
HPI - Anxiety General: Chief Complaint: Anxiety Stated Complaint: Having anxiety Time Seen by Provider: 03/22/25 23:51 History of Present Illness: 19yo F w/cc of anxiety, crying, inability to calm herself. This started earlier in the day after she saw her parents with whom she does not get along with. She tried taking hydroxyzine without relief. Patient states that she has a history of panic attacks. She states she is experiencing tightness in her chest, shortness of breath and tension in her neck. She is crying and hyperventilating on my exam. Patient has not had a fever. She denies cough, hemoptysis, syncope or leg swelling. She denies abdominal pain, nausea or vomiting. Last menstrual cycle was 2 weeks ago. Patient is sexually active with her boyfriend, denies pelvic pain, abnormal vaginal discharge or pain with intercourse. Patient denies dysuria or hematuria. She vapes, reports occasional marijuana use. Denies illicit drug use. Related Data Previous Rx's ?Medication ?Instructions ?Recorded hydroxyzine HCl 25 mg tablet 25 mg PO BID PRN anxiety #60 tabs 09/22/24 Allergies Allergy/AdvReac Type Severity Reaction Status Date / Time No Known Allergies Allergy Verified 01/16/25 02:28 [facility] PFS: Medical History (Updated 03/23/25 @ 04:43 by Kiarra Bradley MD) Suicide attempt Major depressive disorder, recurrent, moderate Nicotine use disorder History of posttraumatic stress disorder (PTSD) Psychiatric care Vitamin B 12 deficiency Family planning Leg pain Leg strain Social History Smoking and tobacco/nicotine status: never used tobacco/nicotine Quit status (tobacco/nicotine): has tried quititng Number of times tried to quit tobacco: 2 Second hand smoke exposure: No Alcohol intake: former Year of sobriety/quit date alcohol: 2021 Substance/Drug Use: former Date of last use: Marijuana - 2020 Physical Exam Narrative: EXAM NARRATIVE: Vital signs were reviewed. Patient is alert and oriented. Patient is crying and hyperventilating. Patient has clear lungs b/l, no rhonchi, wheezing or crackles. No hypotension, mild tachycardia. Abdomen is soft, nondistended and nontender. Patient is moving all extremities, no deformity or gross injury. No lower extremity edema or asymmetry. Course Vital Signs: Vital signs: Vital Signs Temperature 97.6 F 03/22/25 23:43 Pulse Rate 113 H 03/22/25 23:43 Respiratory Rate 17 03/22/25 23:43 Blood Pressure 128/87 03/22/25 23:43 Pulse Oximetry 97 03/22/25 23:43 Oxygen Delivery Me thod Room Air 03/22/25 23:43 MDM - Anxiety Medical Decision Making Patient is a 19-year-old female with past medical history of anxiety, depression, panic attacks, multiple ER visits for panic attacks, suicidal ideation, suicide attempt via overdose presents with a chief complaint of anxiety and feeling panicked after she saw her parents today with whom she does not get along. She states she has not been able to calm herself using her calming techniques and has not had relief with hydroxyzine. On initial exam she is hemodynamically stable. Patient was evaluate CBC, BMP, TSH, EKG, UA and screen. She was treated w/PO ativan. She has a normal white blood cell count and is not anemic. She has normal kidney function. She has a normal TSH and is not . UA demonstrates 2+ leuk esterase, 50-100 white blood cells which may be consistent with a urinary tract infection. Will treat with Macrobid. UDS is positive for methamphetamines and marijuana. This may be contributing to her panic attacks and episodes. We discussed outpatient psychiatric follow-up. At this time she is desiring to go home, she is stable for discharge. Patient was counseled on supportive care at home, given return precautions and discharged in stable condition with recommendation for outpatient follow-up with primary care nurse or doctor. Lab Data 03/23/25 02:40 03/23/25 02:40 Laboratory Results WBC 9.03 10^3/uL (3.29-11.43) 03/23/25 02:40 RBC 4.57 10^6/uL (3.85-5.65) 03/23/25 02:40 Hgb 15.00 g/dL (11.27-16.99) 03/23/25 02:40 Hct 43.3 % (36-47) 03/23/25 02:40 MCV 94.7 fl (85-98) 03/23/25 02:40 MCH 32.8 pg (27-33) 03/23/25 02:40 MCHC 34.6 g/dL (30-55) 03/23/25 02:40 RDW 12.4 % (12.1-15.1) 03/23/25 02:40 Plt Count 316 10^3/cmm (157-399) 03/23/25 02:40 MPV 8.6 fL (7.4-10.4) 03/23/25 02:40 Neut % (Auto) 51.3 % 03/23/25 02:40 Lymph % (Auto) 35.1 % 03/23/25 02:40 [place] % (Auto) 8.3 % 03/23/25 02:40 Eos % (Auto) 4.3 % 03/23/25 02:40 Baso % (Auto) 0.7 % 03/23/25 02:40 Neut # (Auto) 4.63 10^3/uL (1.8-7.7) 03/23/25 02:40 Lymph # (Auto) 3.2 10^3/uL (0.8-4.8) 03/23/25 02:40 [place] # (Auto) 0.8 10^3/uL (0.2-0.9) 03/23/25 02:40 Eos # (Auto) 0.4 10^3/uL (0.0-0.8) 03/23/25 02:40 Baso # (Auto) 0.1 10^3/uL (0.0-0.1) 03/23/25 02:40 Nucleated RBC % (auto) 0 % 03/23/25 02:40 Nucleated RBCs # 0.0 /100WBC 03/23/25 02:40 Sodium 140 mmol/L (136-145) 03/23/25 02:40 Potassium 3.4 mmol/L (3.5-5.1) L 03/23/25 02:40 Chloride 103 mmol/L (98-107) 03/23/25 02:40 Carbon Dioxide 23 mmol/L (22-29) 03/23/25 02:40 Anion Gap 17.4 (5-19) 03/23/25 02:40 BUN 6 mg/dL (6-20) 03/23/25 02:40 Creatinine 0.5 mg/dL (0.5-0.9) 03/23/25 02:40 GFR Calculation 155.7 mL/min (90-130) H 03/23/25 02:40 Glucose 83 mg/dL (65-115) 03/23/25 02:40 Calculated Osmolality 287 mOsm/kg (285-295) 03/23/25 02:40 Calcium 8.6 mg/dL (8.5-10.5) 03/23/25 02:40 TSH 1.47 uIU/mL (0.27-4.20) 03/23/25 02:40 HCG, Qual Negative (Negative) 03/23/25 02:40 Urine Color Yellow (Yellow) 03/23/25 02:40 Urine Appearance Cloudy (CLEAR) A 03/23/25 02:40 Urine pH 6.0 (5-7) 03/23/25 02:40 Ur Specific [place] 1.022 (1.005-1.030) 03/23/25 02:40 Urine Protein Negative (Negative) 03/23/25 02:40 Urine Glucose (UA) Negative (Normal) 03/23/25 02:40 Urine Ketones Trace (Negative) 03/23/25 02:40 Urine Blood Negative (Negative) 03/23/25 02:40 Urine Nitrate Negative (Negative) 03/23/25 02:40 Urine Bilirubin Negative (Negative) 03/23/25 02:40 Urine Urobilinogen 1.0 mg/dL (Negative) 03/23/25 02:40 Ur Leukocyte Esterase 2+ (Negative) A 03/23/25 02:40 Urine RBC 0-2 /hpf (0-2) 03/23/25 02:40 Urine WBC 51-100 /hpf (0-5) H 03/23/25 02:40 Ur Squamous Epith Cells 6-10 /hpf (0-5) 03/23/25 02:40 Amorphous Sediment Not Reportable 03/23/25 02:40 Urine Bacteria Trace /hpf (NONE) 03/23/25 02:40 Hyaline Casts 2.46 /lpf 03/23/25 02:40 Urine Opiates Screen Negative ng/mL (Negative) 03/23/25 02:40 Ur Barbiturates Screen Negative ng/mL (Negative) 03/23/25 02:40 Ur Phencyclidine Scrn Negative ng/mL (Negative) 03/23/25 02:40 Ur Amphetamines Screen Positive ng/mL (Negative) H 03/23/25 02:40 U Benzodiazepines Scrn Positive ng/mL (Negative) H 03/23/25 02:40 Urine Cocaine Screen Negative ng/mL (Negative) 03/23/25 02:40 U Marijuana (THC) Screen Positive ng/mL (Negative) H 03/23/25 02:40 No radiology studies performed this visit EKG Data EKG 1: Interpretation: Normal sinus rhythm with a heart rate of 94, normal axis, normal intervals, no evidence of ST segment elevation. No ischemic change. Discharge Plan Discharge Patient Disposition: Home Clinical Impression: Anxiety, Cannabis abuse Condition: Stable Prescriptions: No Action hydroxyzine HCl 25 mg tablet 25 mg PO BID PRN (Reason: anxiety) Qty: 60 2RF Rx Instructions: Take one tablet twice a day, if needed for anxiety Discharge Orders: Discharge ED (Routine); Ordered 03/23/25 Ordered By: Kiarra Bradley Referrals: Angeline Marmolejo PA [Primary Care Provider, [facility] [employer]] Patient Instructions: Opioid Safety, Pain Management, Patient Portal & Sari Instructions, Anxiety (ED), Cannabis Use Disorder (ED) Activity Restrictions/Additional Instructions: Please discontinue any use of illicit substances such as stimulants, caffeine, marijuana as this can contribute to your anxiety disorder. Please schedule an appointment with mental health provider to initiate and guide medical therapy for your symptoms. Please continue to monitor your condition closely at home. If your condition worsens or additional concerns arise, please return promptly to the emergency department for reassessment. Follow up with your primary care doctor in one week. Print Language: Sudanese Coding Level of Care Code ED [employer] Operator for Sen Sanchez
--- NOTE | 2025-03-23 01:44 | ECG_ITS ---
[facility] Test Date: 2025-03-23 Pat Name: Johanne Wolfe Department: Room: Gender: Female Social Science Manager: : 2005 Requested By: Kiarra Bradley Order Number: [id number] Jasper MD: Mariaelena Lopez M.D. Measurements Intervals Peerless Rate: 94 P: 54 WI: 146 QRS: 6 QRSD: 84 T: 30 QT: 346 QTc: 433 Interpretive Statements SINUS RHYTHM WITH SINUS ARRHYTHMIA Compared to ECG 10/11/2024 23:49:05 Sinus tachycardia no longer present Electronically Signed On 03-25-2025 13:02:09 PICTURE COPYIST by Mariaelena Lopez M.D. [email or web address]
[2025-03-23 02:48] LABS: Hematocrit 43.3 % (36-47); Hemoglobin 15.00 g/dL (11.27-16.99); Mean Corpuscular HGB Conc 34.6 g/dL (30-55); Mean Corpuscular Hemoglobin 32.8 pg (27-33); Mean Corpuscular Volume 94.7 fl (85-98); Nucleated Red Blood Cells % 0 %; Platelet Count 316 10^3/cmm (157-399); Red Blood Count 4.57 10^6/uL (3.85-5.65); White Blood Count 9.03 10^3/uL (3.29-11.43)
[2025-03-23 02:51] LABS: HCG Qualitative Urine. Negative (Negative)
[2025-03-23 02:52] LABS: Glucose Urine UA Negative (Normal); Nitrate Urine Negative (Negative); Specific Gravity, Urine 1.022 (1.005-1.030)
[2025-03-23 02:57] LABS: Add Urine Microscopic? YES
[2025-03-23 02:58] LABS: PCP Screen Urine Negative (Negative)
[2025-03-23 03:17] LABS: Anion Gap 17.4 (5-19); Blood Urea Nitrogen 6 mg/dL (6-20); Calcium 8.6 mg/dL (8.5-10.5); Carbon Dioxide 23 mmol/L (22-29); Chloride 103 mmol/L (98-107); Creatinine Clr Calc Pharmacy 133.8186; Glucose 83 mg/dL (65-115); Osmolality Calculated 287 mOsm/kg (285-295); Potassium 3.4 mmol/L (3.5-5.1); Sodium 140 mmol/L (136-145); Thyroid Stimulating Hormone 1.47 uIU/mL (0.27-4.20)
== END 2025-03-23 05:06 | disposition home or self-care (01) ==
PROVIDERS: Emergency Provider Emergency Medicine; PCP Physician Assistant
DX: F41.9 Anxiety disorder, unspecified (principal); F12.10 Cannabis abuse, uncomplicated; Z87.891 Personal history of nicotine dependence
CPT/HCPCS: 80048; 80306; 81001; 81025; 84443; 85025; 93005; 99284; J9999

== ENCOUNTER 2025-05-05 23:52 | Emergency (ER) | payer MEDICAID, SELFPAY ==
[2025-05-05 23:56] VITALS: BP 114/85; PULSE 111; RESP 18; TEMP 36.4; O2SAT 96; BMI 21.2
--- OUTSIDE RECORDS SUMMARY | 2025-05-05 23:57 | XMS_ITS | Data Portability ---
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 Plan of Treatment Reminders Order Date Submit Date Provider Last Modified By Organization Details Last Modified Time Details Appointments None recorded. Lab unlisted lab - sureswab(R) advanced vaginitis plus, tma 2024 025 [facility], [address] [place] [address], [address], [place], [address], 5 11:22:21 pap, LB 2024 025 [facility], [address] [place] [address], [address], [place], [address], 5 20:13:09 urinalysis, dipstick 2024 025 [email or web address] 47 [facility] ([facility]), [address] [place], [address], 5 07:53:09 culture, urine 2024 025 [facility], [address] [place] [address] 248, [address], [place], [address], 5 02:19:46 vitamin D, 25-hydroxy, total, serum 2024 025 [facility], [address] [place] [address], [address], [place], [address], 5 09:35:53 vitamin B12, serum 2024 025 [facility], [address] [place] [address], [address], [place], [address], 5 09:35:51 folate, serum 2024 025 RANDY [facility], [address] [place] [address], [address], [place], [address], 5 09:35:47 vitamin B1 (thiamine), serum 2024 025 [email or web address] 1 [facility], [address] [place] [address], [address], [place], [address], 5 07:15:49 TSH, serum or plasma 2024 025 [facility]YGENIAC [facility], [address] [place] [address], [address], [place], [address], 5 09:35:49 T4, free, serum 2024 025 RANDYGENIAC [facility], [address] [place] [address], [address], [place], [address], 5 09:35:48 T3, free, serum or plasma 2024 025 RANDY [facility], [address] [place] [address], [address], [place], [address], 5 09:35:52 CBC w/ auto diff 2024 025 [email or web address] 1 [facility], [address], [place], [address], 5 07:15:49 CMP, serum or plasma 2024 [facility], [address] [facility] [address], [address] , [place], [address], 09:35:46 lithium, serum 2024 [facility], [address] [facility] [address], [address], [place], [address], 09:35:54 Referral None recorded. Procedures None recorded. Surgeries None recorded. Imaging None recorded. Medication Orders cetirizine 10 mg tablet 2024 BONNE TERRE [facility]05760, [address], [place], [place], [id number], 13:22:41 fluticasone propionate 50 mcg/actuati on nasal spray,suspe nsion 2024 [facility], [address], [place], [place], [id number], 13:22:39 Advair Diskus 250 mcg-50 mcg/dose powder for inhalation 2024 [facility], [address], [place], [place], [id number], 13:22:40 Ventolin HFA 90 mcg/actuati on aerosol inhaler 2024 025 BONNE TERRE [facility], [address], [place], [place], [id number], 13:22:40 fluconazole 150 mg tablet 2024 025 [facility], [address], [place], [place], [id number], 05:01:19 doxycycline hyclate 100 mg capsule 2024 025 RANDY [facility] #44489, [address], [place], [place], [id number], 05:01:57 ceftriaxone 500 mg solution for injection 2024 025 [email or web address] Not available 13:02:46 hydroxyzine HCl 25 mg tablet 2024 025 [email or web address] [facility] #61619, [address], [place], [place], [id number], 13:02:59 Patient TargetsNo targets recorded. Patient InstructionsNo instructions recorded. Reason for Referral None Reported. Results Created Date Observation Date Name Description Value Unit Range Abnormal Flag Note LastModifiedBy Organization Detail LastModifiedTime 07/27/1907/26/2024 CBC WBC 10.9 x10 4.0-10 .5 high Not Available [facility] [address] [facility] [address], [place], [address], 07/26/2024 15:59:26 07/27/19 25 07/26/2024 CBC RBC 4.07 x10 3.50-5 .50 Not Available [facility] [address] [facility] [address], [place], [address], 07/26/2024 15:59:26 07/27/19 25 07/26/2024 CBC HGB 14.1 g/dL 12.0-1 6.0 Not Available [facility] [address] [facility] 1, [place], [address], 07/26/2024 15:59:26 07/27/19 25 07/26/2024 CBC HCT 38.7 % 37.0-4 7.0 Not Available [facility] [address] [facility] 1, [place], [address], 07/26/2024 15:59:26 07/27/19 25 07/26/2024 CBC MCV 95.2 fL 80.0-9 9.9 Not Available [facility] [address] [facility] 1, [place], [address], 07/26/2024 15:59:26 07/27/19 25 07/26/2024 CBC MCH 34.6 pg 27.0-3 2.0 high Not Available [facility] [address] [facility], [place], [address], 07/26/2024 15:59:26 07/27/19 25 07/26/2024 CBC MCHC 36.4 g/dL 32.0-3 6.0 high Not Available [facility] [address] [facility], [place], [address], 07/26/2024 15:59:26 07/27/19 25 07/26/2024 CBC RDW 12.7 % 11.5-1 4.5 Not Available [facility] [address] [facility], [place], [address], 07/26/2024 15:59:26 07/27/19 25 07/26/2024 CBC plt 303.3 x10 140.0- 451.0 Not Available [facility] [address] [facility] 1, [place], [address], 07/26/2024 15:59:26 07/27/19 25 07/26/2024 CBC lymphocytes % 17.8 % 20.0-5 0.0 low Not Available [facility] [address] [facility] Jenn [facility] 1, [place], [address], 07/26/2024 15:59:26 07/27/19 25 07/26/2024 CBC granulcytes % 73.2 % 30.0-7 0.0 high Not Available [facility] [address] [address], [place], [address], 07/26/2024 15:59:26 07/27/19 25 07/26/2024 CBC monocytes % 7.6 % 2.0-16 .0 Not Available [facility] [address] [address], [place], [address], 07/26/2024 15:59:26 07/27/19 25 07/26/2024 CBC granulcytes# 8.0 x10 Not Karina ilable [facility] [address] [address], [place], [address], 07/26/2024 15:59:26 07/27/19 25 07/26/2024 CBC lymphocytes # 2.0 x10 Not Available [address], [address], 07/26/2024 15:59:26 07/27/19 25 07/26/2024 CBC monocytes # 0.8 x10 Not Avai lable [address] [address], [place], [address], 07/26/2024 15:59:26 07/27/19 25 07/30/2024 COMPR EHENS YUNIOR METAB OLIC PANEL glucose 84 mg/dL 65-99 normal Fasti ng refer ence inter ritu Not Available [facility] [address] [place], [address], 07/30/2024 09:35:46 07/27/19 25 07/30/2024 COMPR EHENS YUNIOR METAB OLIC PANEL urea nitrogen (BUN) 10 mg/dL 7-25 normal Not Available [facility] [address] [place], [address], 07/30/2024 09:35:46 07/27/19 25 07/30/2024 COMPR EHENS YUNIOR METAB OLIC PANEL creatinine 0.83 mg/dL 0.50-0 .96 normal Not Available [address], [address], 07/30/2024 09:35:46 07/27/19 25 07/30/2024 COMPR EHENS YUNIOR METAB OLIC PANEL eGFR 103 mL/mi n/1.7 3m2 > or = 60 normal Not Available [address], [address], 07/30/2024 09:35:46 07/27/19 25 07/30/2024 COMPR EHENS YUNIOR METAB OLIC PANEL BUN/creatini ne ratio SEE NOTE: (calc ) 6-22 Not Repor zoltan: BUN and Creat inine are withi n refer ence range . Not Available [address], [address], 07/30/2024 09:35:46 07/27/19 25 07/30/2024 COMPR EHENS YUNIOR METAB OLIC PANEL sodium 138 mmol/ L 135-14 6 normal Not Available [address], [address], 07/30/2024 09:35:46 07/27/19 25 07/30/2024 COMPR EHENS YUNIOR METAB OLIC PANEL potassium 3.9 mmol/ L 3.5-5. 3 normal Not Available [address], [address], 07/30/2024 09:35:46 07/27/19 25 07/30/2024 COMPR EHENS YUNIOR METAB OLIC PANEL chloride 105 mmol/ L 98-110 normal Not Available [address], [address], 07/30/2024 09:35:46 07/27/19 25 07/30/2024 COMPR EHENS YUNIOR METAB OLIC PANEL carbon dioxide 27 mmol/ L 20-32 normal Not Available [address], [address], 07/30/2024 09:35:46 07/27/19 25 07/30/2024 COMPR EHENS YUNIOR METAB OLIC PANEL calcium 10.0 mg/dL 8.6-10 .2 normal Not Available [address], [address], 07/30/2024 09:35:46 07/27/19 25 07/30/2024 COMPR EHENS YUNIOR METAB OLIC PANEL protein, total 7.7 g/dL 6.1-8. 1 normal Not Available [address], [address], 07/30/2024 09:35:46 07/27/19 25 07/30/2024 COMPR EHENS YUNIOR METAB OLIC PANEL albumin 4.9 g/dL 3.6-5. 1 normal Not Available [address], [address], 07/30/2024 09:35:46 07/27/19 25 07/30/2024 COMPR EHENS YUNIOR METAB OLIC PANEL globulin 2.8 g/dL_ (calc ) 1.9-3. 7 normal Not Available [address], [address], 07/30/2024 09:35:46 07/27/19 25 07/30/2024 COMPR EHENS YUNIOR METAB OLIC PANEL albumin/glob ulin ratio 1.8 (calc ) 1.0-2. 5 normal Not Available [address], [address], 07/30/2024 09:35:46 07/27/19 25 07/30/2024 COMPR EHENS YUNIOR METAB OLIC PANEL bilirubin, total 0.8 mg/dL 0.2-1. 2 normal Not Available [address], [place], [address], 07/30/2024 09:35:46 07/27/1907/30/2024 COMPR EHENS YUNIOR METAB OLIC PANEL alkaline phosphatase 60 U/L 31-125 normal Not Available [facility] [address], [address], 07/30/2024 09:35:46 07/27/1907/30/2024 COMPR EHENS YUNIOR METAB OLIC PANEL AST 16 U/L 10-30 normal Not Available [address], [address], 07/30/2024 09:35:46 07/27/1907/30/2024 COMPR EHENS YUNIOR METAB OLIC PANEL ALT 11 U/L 6-29 normal Not Available [address], [address], 07/30/2024 09:35:46 07/27/1907/30/2024 FOLAT E, SERUM folate, serum 17.2 NG/mL normal Refer ence Range Low: <3.4 Borde rline : 3.4-5 .4 Sapphire l: >5.[address], [address], 07/30/2024 09:35:47 07/27/1907/30/2024 T4, FREE T4, free 1.0 NG/dL 0.8-1. 4 normal Not Available [address], [address], 07/30/2024 09:35:48 07/27/1907/30/2024 TSH TSH 1.86 mIU/L normal Refer ence Range > or = 20 Years 0.40- 4.50 Pregn tsering Range s First trime ster 0.26- 2.66 Secon d trime ster 0.55- 2.73 Third trime ster 0.43- 2.91 Not Available [facility] [address] [address], [place], [address], 07/30/2024 09:35:49 07/27/1907/30/2024 VITAM IN B12 vitamin B12 411 pg/mL 200-11 00 normal Not Available [facility] [address] [place], [address], 07/30/2024 09:35:51 07/27/1907/30/2024 T3, FREE T3, free 2.9 pg/mL 3.0-4. 7 low Not Available [facility] [address] [place], [address], 07/30/2024 09:35:52 07/27/1907/30/2024 VITAM IN D,25- [place],TO [...] /MS is recom miguel d: order code 22886 (nikole ents >2yrs ). See Note 1 Note 1 For addit ional infor eros kent refer to http: //kisha Umaña gnost ics.c om/fa q/FAQ 199 (This link is being provi ded for infor maikol santillan/ duncan wallace purpo ses only. ) Not Available [facility] [address] [place], [address], 07/30/2024 09:35:52 07/27/1907/30/2024 VITAM IN B1 (THIA [...] cteri stics have been deter mined by [facility]. It has not been clear ed or appro griselda by FDA. This assay has been valid ated pursu ant to the CLIA regul ation s and is used for clini juan purpo ses. MDF med fusio n [address] [facility] [address] [facility] [address] [phone] Phoebe Keita MD, PhD Not Available [facility] [address] [place], [address], 07/30/2024 09:35:54 07/27/19 25 07/30/2024 LITHI UM lithium 1.3 mmol/ L 0.6-1. 2 high Not Available [facility] [address] [place], [address], 07/30/2024 09:35:54 09/06/19 25 09/07/2024 CULTU RE, URINE , ROUTI NE culture, urine, routine SEE NOTE abnormal CULTU RE, URINE , ROUTI NE Micro Numbe r: [id number] Test Statu s: Final Speci men [...] er testi ng perfo rmed. Not Available [facility] [address] [place], [address], 09/07/2024 02:19:43 09/06/19 25 09/05/2024 urina lysis , dipst ick Leukocytes Small Not Available [facility] ( [facility] [address] [place] [address], [address], 09/05/2024 13:23:03 09/06/19 25 09/05/2024 urina lysis , dipst ick Nitrite negati ve Not Available [facility] ([facility]) [address] [place] [address], [address], 09/05/2024 13:23:03 09/06/19 25 09/05/2024 urina lysis , dipst ick Urobilinogen 1 Not Available [facility] ([facility]) [address] [place] [address], [address], 09/05/2024 13:23:03 09/06/19 25 09/05/2024 urina lysis , dipst ick Protein 100 Not Available [facility] ([facility]) [address] [place], [address], 09/05/2024 13:23:03 09/06/19 25 09/05/2024 urina lysis , dipst ick pH 8.5 Not Available [facility] ([facility]) [address] [place] [address], [address], 09/05/2024 13:23:03 09/06/19 25 09/05/2024 urina lysis , dipst ick Blood Hemoly zed: Trace Not Available [facility] ([facility]) [address] [place], [address], 09/05/2024 13:23:03 09/06/19 25 09/05/2024 urina lysis , dipst ick Specific Vanderbilt 1.020 Not Available [facility] ( [facility]) [address] [place], [address], 09/05/2024 13:23:03 09/06/19 25 09/05/2024 urina lysis , dipst ick Ketone Negati ve Not Available [facility] ([facility]) [address] [place], [address], 09/05/2024 13:23:03 09/06/19 25 09/05/2024 urina lysis , dipst ick Bilirubin Negati ve Not Available [facility] ([facility]) [address] [place], [address], 09/05/2024 13:23:03 09/06/19 25 09/05/2024 urina lysis , dipst ick Glucose Negati ve Not Available [facility] ([facility]) [address] [place], [address], 09/05/2024 13:23:03 09/06/19 25 09/05/2024 urina lysis , dipst ick Appearance Clear Not Available [facility] ( [facility]) [address] [place], [address], 09/05/2024 13:23:03 09/06/19 25 09/05/2024 urina lysis , dipst ick Color Yellow Not Available [facility] [address] [place], [address], 09/05/2024 13:23:03 10/29/19 25 10/29/2024 SURES WAB(R ) ADVAN SIDNEY VAGIN ITIS PLUS, TMA sureswab(R) adv bacterial vaginosis (bv), tma POSITI VE negati ve abnormal Not Available [facility] [address], [address], 10/29/2024 11:22:21 10/29/19 25 10/29/2024 SURES WAB(R ) ADVAN SIDNEY VAGIN ITIS PLUS, TMA dago species DETECT ED not detect ed abnormal Not Available [facility] [address], [address], 10/29/2024 11:22:21 10/29/19 25 10/29/2024 SURES WAB(R [...] spp. resul t. Not Available [facility] [address], [address], 10/29/2024 11:22:21 10/29/19 25 10/29/2024 SURES WAB(R ) ADVAN SIDNEY VAGIN ITIS PLUS, TMA trichomonas vaginalis (TV), tma NOT DETECT ED not detect ed normal Not Available [facility] [address], [address], 10/29/2024 11:22:21 10/29/19 25 10/29/2024 SURES WAB(R ) ADVAN SIDNEY VAGIN ITIS PLUS, TMA chlamydia trachomatis RNA, tma, urogenital NOT DETECT ED not detect ed normal Not Available [facility] [address], [address], 10/29/2024 11:22:21 10/29/19 25 10/29/2024 SURES WAB(R ) ADVAN SIDNEY VAGIN ITIS PLUS, TMA neisseria gonorrhoeae RNA, tma, urogenital NOT DETECT ED not detect ed normal For addit ional infor eros kent refer to https ://ed ucati on.qu clarissa ye Alorica. com/f aq/FA Q154 (This link is being provi ded for infor maikol salazar/ duncan wallace purpo ses only. ) Not Available [address], [address], 10/29/2024 11:22:21 10/29/19 25 11/01/2024 IMAGE -GUID ED PAP W/AGE BASED SCR JESSI COLS comment This order for age-b ased cervi juan cance r and STI scree augusta follo ws ACOG guide lines (PB 168, 140, FAQ07 1). See indiv idual assay s for perfo rming site locat ion. Not Available [address], [address], 11/01/2024 20:13:09 10/29/1911/01/2024 IMAGE -GUID ED PAP W/AGE BASED SCR JESSI COLS clinical information: normal Sapphire l exam Not Available [address], [address], 11/01/2024 20:13:09 10/29/19 25 11/01/2024 IMAGE -GUID ED PAP W/AGE BASED SCR JESSI COLS LMP: normal NONE GIVEN Not Available [address], [address], 11/01/2024 20:13:09 10/29/1911/01/2024 IMAGE -GUID ED PAP W/AGE BASED SCR JESSI COLS prev. Pap: normal NONE GIVEN Not Available [address], [address], 11/01/2024 20:13:09 10/29/19 25 11/01/2024 IMAGE -GUID ED PAP W/AGE BASED SCR JESSI COLS prev. BX: normal NONE GIVEN Not Available [address] [address] [place], [address], 11/01/2024 20:13:09 10/29/19 25 11/01/2024 IMAGE -GUID ED PAP W/AGE BASED SCR JESSI COLS source: normal Cervi x, Endoc ervix Not Available [address] [address] [place], [address], 11/01/2024 20:13:09 10/29/19 25 11/01/2024 IMAGE -GUID ED PAP W/AGE BASED SCR JESSI COLS statement of adequacy: normal Satis facto ry for evalu ation . Endoc ervic al/tr ansfo rmati on zone compo nent prese nt. Age and/o r menst rual statu s not provi ded Not Available [address] [address] [place], [address], 11/01/2024 20:13:09 10/29/19 25 11/01/2024 IMAGE -GUID ED PAP W/AGE BASED SCR JESSI COLS interpretati on/result: normal Cytol ogy Resul ts: Negat yunior for intra epith elial lesio n or malig kevin . Not Available [address] [address] [place], [address], 11/01/2024 20:13:09 10/29/19 25 11/01/2024 IMAGE -GUID ED PAP W/AGE BASED SCR JESSI COLS infection: normal Funga l organ isms morph ologi yehuda consi stent with Yael da spp. Shift in vagin al franchesca sugge stive of bacte rial vagin osis. Not Available [address] [address] [place], [address], 11/01/2024 20:13:09 10/29/19 25 11/01/2024 IMAGE -GUID ED PAP W/AGE BASED SCR JESSI COLS comment: normal This Pap test has been evalu ated with compu ter valerie zoltan techn ology . Not Available [facility] [address] [address] [place], [address], 11/01/2024 20:13:09 10/29/1911/01/2024 IMAGE -GUID ED PAP W/AGE BASED SCR JESSI COLS cytotechnolo gist: normal ABC, CT( CP) CT scree augusta locat ion: [address] [address] [place] [address] Not Available [facility] [address] [address] [place], [address], 11/01/2024 20:13:09 10/29/1911/01/2024 IMAGE -GUID ED PAP [...] clini juan infor matio n. Not Available [facility] [address] [address] [place], [address], 11/01/2024 20:13:09 10/29/1911/01/2024 IMAGE -GUID ED PAP W/AGE BASED SCR JESSI COLS chlamydia trachomatis RNA, tma, urogenital NOT DETECT ED not detect ed normal Not Available [address] [address] [place], [address], 11/01/2024 20:13:09 10/29/1911/01/2024 IMAGE -GUID ED PAP W/AGE BASED SCR JESSI COLS neisseria gonorrhoeae RNA, tma, urogenital NOT DETECT ED not detect ed normal Not Available [facility] [address] [address] [place], [address], 11/01/2024 20:13:09 10/29/19 25 11/01/2024 IMAGE -GUID ED PAP W/AGE BASED SCR JESSI COLS comment The bobby tical perfo rmanc e lucia cteri stics of this assay , when used to test SureP ath(T M) speci mens have been deter mined by [facility]. The modif icati ons have not been clear ed or appro griselda by the FDA. This assay has been valid ated pursu ant to the CLIA regul ation s and is used for clini juan purpo ses. For addit ional infor eros kent e refer to https ://ed ucati on.qu estAsana. ClientShow/f aq/FA Q154 (This link is being provi ded for infor maikol salazar/ educroverto bell l purpo ses only. ) Not Available [facility] [address] [place], [address], 11/01/2024 20:13:09 Result Notes None recorded. Problems Name Problem SNOMED Code Status Onset Date Resolution Date Notes Provider Name and Address Organization Details Recorded Time Moderate persistent asthma 696277414 Active 024 MELVINA varghese [facility], L.L.CShadia 5 19:23:38 Anxiety 49040126 Active 025 MELVINA varghese [facility], L.L.CShadia 5 19:23:27 Problem Notes None recorded. Procedures Surgical History Date Name Laterality Status Provider Name and Address Organization Details Recorded Time screening for malignant neoplasm of cervix completed MELVINA MACKAY [facility]i, L.L.CShadia 11/02/2024 14:17:12 Eye Surgery completed Theresa Samuel [facility], L.L.CShadia 08/28/2023 13:07:11 Imaging Results None recorded. [...] Diskus 250 mcg-50 mcg/dose powder for inhalation Inhale 1 puff twice a day by inhalatio n route around the clock for 30 days. 2024 active Not Available Not Available Not Avai lable bupropion HCl 75 mg tablet 03/03 completed [...] TAKE 1 CAPSULE BY MOUTH TWICE DAILY WITH FOOD /MEAL FOR 5 DAYS 04/23 completed Not Available Not Available Not Available [...] mass index (BMI) Body weight Oxygen saturation Heart rate Respiratory rate Body temperature Systolic And Diastolic Provider Name and Address Organization Details Last Updated DateTime 149.86 cm 30 % 20.2 kg/m2 66826.2 4 g 99 % 80 /min 18 /min 98 [degF] 100/70 mm[Hg] MELVINA [facility], L[facility] 5 14:08:53 Date Recorded Body height Body temperature Heart rate Oxygen saturation Systolic And Diastolic Provider Name and Address Organization Details Last Updated DateTime 5 149.86 cm 98.4 [degF] 81 /min 99 % 118/64 mm[Hg] Aleida [facility], L.L.CShadia 5 13:39:38 Date Recorded Body height Body mass index (BMI) Body mass index (BMI) [Percentile] Per age and sex Body weight Body temperature Heart rate Oxygen saturation Systolic And Diastolic Provider Name and Address Organization Details Last Updated DateTime 5 149.86 cm 20.3 kg/m2 31 % 90174.3 4 g 98.6 [degF] 98 /min 99 % 122/70 mm[Hg] [facility], L.L.CShadia 5 13:19:13 Date Recorded Body height Body mass index (BMI) Body weight Oxygen saturation Heart rate Respiratory rate Body temperature Systolic And Diastolic Provider Name and Address Organization Details Last Updated DateTime 5 149.86 cm 21.2 kg/m2 41982.2 g 99 % 80 /min 18 /min 98 [degF] 120/70 mm[Hg] MELVINA JULISSAISIDROROSALINDA [facility], L.L.CShadia 5 10:43:34 Date Recorded Body height Body mass index (BMI) Body weight Respiratory rate Oxygen saturation Heart rate Body temperature Systolic And Diastolic Provider Name and Address Organization Details Last Updated DateTime 5 149.86 cm 20.9 kg/m2 78234.1 1 g 17 /min 98 % 105 /min 98.5 [degF] 118/74 mm[Hg] MATTHEW ELIAS [facility], LShadiaLShadiaCShadia 5 13:02:28 Social History Question Answer Notes LastModified by Organizat ion Details LastModified Time Tobacco Smoking Status Former Smoker MATTHEW varghese [facility], LShadiaLShadiaCShadia 01/04/2025 13:04:16 Which Illicit Or Recreational Drugs Have You Used? Marijuana Information not available 08/28/2023 What Was The Date Of Your Most Recent Tobacco Screening? 01/04/2025 [email or web address] Information not available 01/04/2025 Has Tobacco Cessation Counseling Been Provided? Yes [email or web address] Information not available 07/14/2023 On What Date Was Tobacco Cessation Counseling Provided? 07/14/2023 [email or web address] Information not available 07/14/2023 Have You Used IV Drugs? No Information not available 08/28/2023 How Many Years Have You Used E-cigarettes Or Vape? 2 [email or web address] Information not available 07/14/2023 Sex: Unknown Functional Status Question Answer Note LastModified by Organizat ion Details LastModified Time Do you use any illicit or recreational drugs? Yes Information not available 08/28/2023 Do you or have you ever used any other forms of tobacco or nicotine? Yes [email or web address] Information not available 07/14/2023 What is your level of alcohol consumption? None Information not available 08/28/2023 Do you or have you ever used smokeless tobacco? Never used smokeless tobacco [email or web address] Information not available 07/14/2023 Do you or have you ever used e-cigarettes or vape? Current user of electronic cigarettes [email or web address] Information not available 07/14/2023 Do you or have you ever used any nicotine-free cigarettes, vape, or chewing tobacco? No Information not available 01/04/2025 Mental Status None recorded. Family History Nothing Reported. Medical History Condition Response Coronary Artery Disease N Other N Gout N Kidney Stones N Blood Diseases N Hyperthyroidism N Breast Cancer N Blood Transfusion N Hypothyroidism N Depression N COPD N Lung Disease N Defects or Inherited Disease N Developmental or Behavioral Disorders N Breast Problem N Difficulty Swallowing N Anesthesia Complications N Anxiety Disorder N Meniere's disease N Muscle, Joint, or Bone Problems N Vision or Eye Problems N Arthritis N Polyps N Infertility N Cancer N Varicosities N Stroke N Endometriosis N Bladder or Kidney Problems N High Cholesterol N Liver Disease N Headaches N Fibromyalgia N Kidney Disease N Allergies/Hayfever N Heart [...] N Heart Disease N Pulmonary Embolism N Chronic Ear Infections N Pre-Eclampsia N Hypertension N Chicken Pox N Autism Spectrum Disorder (ASD) N Osteoporosis N Thrombophilias N Gynecological History Statement/Question Response Menses Monthly Y STIs/STDs N Current Control Method Condoms Sexually Active? Y On BCP's at Conception? N Obstetrics History GPAL:G 0 P 0 0 0 0 Immunizations Vaccine Type Date Status Note Provider Nam e and Address Organization Details Recorded Time Tdap 7 completed ANGELINE MARMOLEJO PA-C [address] [place], [address], [facility] 11/12/2023 11:25:25 meningococcal MCV4P 1 completed ANGELINE MARMOLEJO PA-C [address] [place], [address], [facility] 11/12/2023 11:25:25 meningococcal MCV4P 7 completed ANGELINE MARMOLEJO PA-C [address] [place], [address], [facility] 11/12/2023 11:25:25 Past Encounters Encounter ID Performer Location Encounter Start Date Encounter Closed Date Diagnosis/Indication Diagnosis SNOMED-CT Code Diagnosis ICD10 Code Diagnosis IMO Codes Diagnosis Note [id number] LUISA BENNETT [facility] ([facility] [address] [facility]) [address] [place] [address] 04/28/2023 13:15:16 05/25/2023 08:48:46 Diarrhea 57254620 R19.7 Discussed with patient that the diarrhea [...] understand ing. Fibroadeno ma of bilateral breasts [id number] 3216665 D24.1 Discussed with patient that I suspect these lumps are fibroadeno mas. However, due to pain, will refer to OBGYN per patient request for further evaluation and re-assuran ce. [id number] LUISA BENNETT [facility] ([facility]) [address] [place] [id number] 05/05/2023 16:49:56 05/24/2023 06:38:33 Missed period 25107610 N92.5 Negative UPT today. Will check beta-HCG quantitati ve today and will call patient with results. Discussed with patient that she should follow up with PCP in 1-2 weeks if she does not start her menstrual cycle. She should continue her daily medication s as prescribed at this time. Will call with results in 2-3 days. Patient is agreeable to plan of care. [id number] ANGELINE MARMOLEJO PA-C [facility] ([facility] [address] [facility]) [address] [place] [phone] 06/11/2023 10:59:42 06/11/2023 12:10:44 Moderate persistent asthma 590863250 J45.40 Borderline personality disorder 16685750 F60.3 managed by [facility] [id number] ANGELINE MARMOLEJO PA-C [facility] ([facility]) [address] [place] [phone] 07/14/2023 11:25:38 07/14/2023 12:51:37 Moderate persistent asthma 353831548 J45.40 Nicotine dependence 5629 4008 F17.200 Thiamine deficiency 3993 78132 E51.9 [id number] POLLO [place] [facility] ([facility]) [address] [place] [phone] 08/28/2023 12:58:13 08/28/2023 13:54:44 Sore throat 655639315 J02.9 Viral uppe r respiratory tract infection 014698135 J06.9 Neg strep today. Patient presented with [...] to 2 weeks if symptoms not improving. [id number] ANGELINE MARMOLEJO PA-C [facility] ([facility]) [address] [place] [phone] 11/12/2023 11:02:31 11/27/2023 10:23:34 Mixed anxiety and depressive disorder 873415074 F41.8 Pt forms filled out for her [facility] she is trying to get into. See scanned documents. Borderline personality disorder 59916960 F60.3 managed by [facility] [place] [facility] Moderate p ersistent asthma 238789936 J45.40 [id number] ANGELINE MARMOLEJO PA-C [facility] ([facility]) [address] [place] [phone] 01/28/2024 10:56:43 02/02/2024 09:13:04 Adult health examination 736771010 Z00.00 Severe rec urrent major depression with psychotic features 21046986 F33.3 managed by [facility] Dr. Ware.Will see if I can get her in to Monique Allred LCSW here at for counseling Moderate p ersistent asthma 081515691 J45.40 Borderline personality disorder F60.3 managed by [facility] in [facility] [id number] Estuardo Coburn MD [facility] ([facility]) [address] [place] [phone] 03/03/2024 10:54:08 03/03/2024 17:41:00 Dysuria 78469056 R30.0 UA was obtained and did show small amount of blood. On her symptoms we will treat for UTI as we await culture. Will also send urine for STD testing. Safe sex practices. Patient was instructed to avoid all sexual activity until results are back. Acute pelvic pain 811915 005 R10.2 The patient does have significan t pelvic discomfort on exam. Based on last menstrual period this could very well be an ovulation cyst. Will go ahead and obtain an ultrasound . Microscopic hematuria 19 6988979 R31.29 [id number] Estuardo Coburn MD [facility] ([facility]) [address] [place] [phone] 03/08/2024 10:32:12 03/08/2024 13:34:32 Pelvic and perineal pain 102469234 R10.2 [id number] ANGLEINE MARMOLEJO PA-C [facility] ([facility]) [address] [place] [phone] 04/28/2024 11:59:25 04/28/2024 12:57:45 Migraine 05417101 G43.909 worsening COSTA now occuring daily. mood changes. foggy thinking.n o double vision, no falls, no numbness. Change in personality 19 9248540 F69 [id number] Estuardo Coburn MD [facility] ([facility]) [address] [place] [phone] 5 05/19/2024 13:14:16 05/21/2024 18:32:08 Anxiety 36043013 F41.9 Patient has tried multiple as needed anxiolytic s in the past as been very successful . Will provide a short course of Ativan today to help with her symptoms until she can get into see [facility]. [id number] ANGELINE MARMOLEJO PA-C [facility] ([facility]) [address] [place] [phone] 05/26/2024 14:41:24 06/10/2024 16:10:50 Borderline personality disorder 71551808 F60.3 managed by [facility] [place] [facility] Bipolar II disorder 8322 5003 F31.81 told her we may occational ly fill her ATivan but very sparingly and not on a chronic daily basis.She is getting a counselor. [id number] ANGELINE MARMOLEJO PA-C [facility] ([facility]) [address] [place] [phone] 06/08/2024 14:02:09 06/20/2024 07:58:41 Bipolar II disorder 01871496 F31.81 told her we may occational ly fill her ATivan but very sparingly and not on a chronic daily basis.She is getting a counselor. Her meds are managed by [facility] Borderline personality disorder 76032392 F60.3 Moderate p ersistent asthma 315496750 J45.40 [id number] ANGELINE MARMOLEJO PA-C [facility] ([facility]) [address] [place] [phone] 5 07/26/2024 14:05:00 07/26/2024 14:38:25 Anxiety 02536598 F41.9 Moderate p ersistent asthma 179086124 J45.40 Long-term current use of drug therapy 597566557 Z79.899 Medication monitoring 39 1722981 Z51.81 [id number] POLLO [place] [facility] ([facility]) [address] [place] [phone] 09/03/2024 13:31:11 09/03/2024 23:20:50 Anxiety 62328029 F41.9 40165 Discussed use of PRN hydroxyzin e. Continue lithium as prescribed . Keep appt scheduled on Thursday.If you develop SI or HI then f/u in ER [id number] Carlito Trejo DO [facility] ([facility]) [address] [place] [phone] 5 09/05/2024 13:06:44 09/05/2024 14:22:13 Flank pain 907001054 R10.9 18517 Cyst of right ovary 1223 594200 3901379 N83.201 [id number] concern for acute flairup. continue heating pad, tylenol and IBU. pt to increase IBU to 600mg po TiD Otc. expect improvemen t over the next 3-5 days, if worsening go to ER, if not improved by then, come in for f/u appt with pcp, may need US. counseled [id number] ANGELINE MARMOLEJO PA-C [facility] ([facility]) [address] [place] [phone] 5 10/28/2024 10:39:37 10/28/2024 15:34:04 Vaginal discharge 953403987 N89.8 [id number] concern from mild PID> Will tx her while waiting for results of STIs. Gynecologi c examination 10780572 Z01.866 [id number] High risk heterosexual behavior 2747804259 78553 Z72.51 6896546 Exposure t o Neisseria gonorrhoeae 308389627 Z20.2 346085 [id number] POLLO DAWSON [facility] ([facility]) [address] [place] [address] 01/04/2025 12:54:31 01/04/2025 13:27:16 Environmental allergy 054961997 Z91.09 [id number] May use meds like zyrtec and fluticason e nasal spray as needed for symptoms. Return to clinic with any new or worsening symptoms. Moderate p ersistent asthma 587283859 J45.40 refills given. Follow up with Angeline Marmolejo PCP Health Concerns Section Related Observation LastModified by Organization Detai ls LastModified Time None Recorded Concern Status LastModified by Organization Details LastModified Time None Recorded Advance Directives Directive None Recorded Payers Insurance Date Sequence Insurance Name Policy Number Policy Ovalle Covered Member ID Ovalle Member ID Guarantor Name 02/25/2025 [facility] (MEDICAID HMO) Johanne Cho Halflul [id number] Johanne Halferty 11/01/2024 1 [facility] [place] () Anthony Halferty [id number] Johanne Halferty 05/26/2023 1 FOR LIFE () Johanne Halferty [id number] Johanne Halferty 03/09/2025 1 [facility] (MEDICAID HMO) Johanne Cho Halferty [id number] Johanne Halferty 03/09/2025 [place] Johanne Cho Halferty [id number] Johanne Halferty Notes Date Note Type Note Provider Name [...] feel more angry. Now just on the Deary. needs her levels checked as well. Sees [facility] for med managememt. ANGELINE MARMOLEJO PA-C [address] [place], [address], [facility], [place]. 07/26/2024 14:32:41 09/03/2024 text/html Generalized Anxi ety DisorderReported by PatientROS as noted in the HPI walk in ptPt hasn't eaten for 2 days due to her anxiety and is not sleeping. Has an appt to see her psychiatrist on Thursday. Denies SI or HI. States there was no trigger. Currently takes Deary daily. Last dose adjustment was about 4-5 weeks ago. ERIKA SIGALA, POLLO [address] [place], [address], [facility], [place]. 09/03/2024 14:06:22 09/05/2024 text/[facility] [...] was several days. Carlito Trejo, DO [address] [place], [address], [facility], [place]. 09/05/2024 14:18:56 10/28/2024 text/html Vaginal DischargeReported by PatientHPIFor associated symptoms, patient reportsvaginal burning,swelling/redne ss,abdominal pain, andpelvic pain. For location, patient reportsvagina. For quality, patient reportswhiteandcugilbert man. For severity, patient reportsmoderate. For duration, [...] prn for anxiety. ANGELINE MARMOLEJO PA-C [address] [place], [address], [facility], [place]. 10/28/2024 15:28:44 01/04/2025 text/html ROS as noted in the HPI walk-in; PCP Angeline Marmolejo Patient states she works at [employer] and all the AC units have black mold. Over the past month and a half, her throat salter, nose salter and eyes itch and water while she's at work. Does not have the symptoms when she's at home. She's also fatigued and will get headaches at work. Also is needing refills on her medications. POLLO DAWSON [address] [place], [address], [facility], [place]. 01/04/2025 13:23:13 OBGyn Episode No OBEpisode recorded.
--- NOTE | 2025-05-06 00:23 | W.ED.ANXIETY ---
HPI - Anxiety General: Chief Complaint: Anxiety Stated Complaint: MHE Time Seen by Provider: 05/05/25 23:57 History of Present Illness: Selected Entries 05/05/25 23:56 ED Triage Comment Patient arrives vi a POV for c/ o anx iety. Denies SI, H I. States that she took some hydroxy zine earlier this morning for anxiet y. Patient recentl y stopped seeing a psychiatrist nina use she states it did not help. She states that she resendiz s been drinking bu rbon tonight, but unsure of how much . She states that she has also had o ther substances bu t won't tell alban richardson nurse what. 19-year-old female with chronic anxiety, presents to the emergency room with severe anxiety. She is crying. She just cannot stop being anxious. She drank bourbon tonight, and is still nervous. She stated the bourbon made it worse. Undisclosed amount of drugs/substances. She has not taken any of her medication other than hydroxyzine. She states that the works. On review of her chart, she has a history of being previously on Latuda, lithium. Patient emphatically denies any suicide thoughts or ideas, or homicide thoughts or ideas Associated symptoms: Deny chest pain, chills, fever(s), headache(s), nausea, palpitations or vomiting Related Data Previous Rx's ?Medication ?Instructions ?Recorded hydroxyzine HCl 25 mg tablet 25 mg PO BID PRN anxiety #60 tabs 09/22/24 olanzapine 5 mg tablet (Zyprexa) 5 mg PO QPM PRN anxiety #30 tabs 05/06/25 Allergies Allergy/AdvReac Type Severity Reaction Status Date / Time No Known Allergies Allergy Verified 05/06/25 00:07 Review of Systems Const: Denies: fever(s), chills, body aches, change in appetite, change in weight or fatigue Eyes: Denies: change in vision, blurry vision or blind spots ENMT: Denies: throat pain or change in hearing Card: Denies: chest pain, palpitations, irregular heart rhythm or lightheadedness Resp: Denies: dyspnea GI: Denies: abdominal pain, nausea, vomiting, diarrhea or constipation : Denies: flank pain, difficulty voiding, dysuria, urinary frequency, urinary urgency, urinary incontinence, genital pruritis, vaginal bleeding, vaginal discharge, irregular period, change in menstrual flow or pelvic pain Skin/Breast: Denies: rash, pruritus, breast tenderness, breast pain, breast swelling, nipple discharge, breast mass, breast skin changes or change in breast shape Neuro: Denies: headache(s), numbness in extremities or dizziness Psych: Reports: anxiety, depression, mood swings, panic attacks and hopelessness; Denies: suicidal ideation or homicidal ideation Endo: Denies: polyuria, polydipsia, tired all the time or change in libido Manan/Lymph: Denies: easy bruising or easy bleeding All/Imm: Denies: urticaria, itchy eyes or seasonal rhinorrhea PFSH ED PFSH: Medical History (Updated 05/06/25 @ 00:50 by SANTANA Bauer) Suicide attempt Major depressive disorder, recurrent, moderate Nicotine use disorder History of posttraumatic stress disorder (PTSD) Psychiatric care Vitamin B 12 deficiency Family planning Leg pain Leg strain Social History Smoking and tobacco/nicotine status: current every day tobacco/nicotine user e-cigarettes E-Cigarette Details: vaporizer device and with nicotine E-cig/vape details: Refill/week Quit status (tobacco/nicotine): has tried quititng Number of times tried to quit tobacco: 2 Second hand smoke exposure: No Alcohol intake: former Year of sobriety/quit date alcohol: 2021 Substance/Drug Use: former Date of last use: Marijuana - 2020 Physical Exam Const: COMMON NORMALS: no acute distress GENERAL APPEARANCE: cooperative; not ill appearing and not frail appearing HENMT: COMMON NORMALS: normocephalic, atraumatic and Normal external nose present HEAD & SCALP: normocephalic and atraumatic FACE & SINUS: normal facial exam and face symmetric NOSE: Normal external nose present Eye: COMMON NORMALS: Equal, round and reactive pupils present and EOMs intact bilaterally PUPIL: Yes Equal, round and reactive pupils present Neck/C-Spine: GENERAL: Yes trachea midline Chest: CHEST: Yes Symmetrical chest wall rise Resp: COMMON NORMALS: normal respiratory effort, No retractions, No use of accessory muscles and clear to auscultation bilaterally AUSCULTATION: clear to auscultation bilaterally Cardio: COMMON NORMALS: regular rhythm RATE: tachycardic RHYTHM: regular rhythm GI: COMMON NORMALS: Normal to inspection, nondistended, normoactive bowel sounds present Extremity: COMMON NORMALS: no pedal edema Neuro: ELOISA COMA SCALE: document GCS findings Rogers coma scale eye opening: Spontaneous Rogers coma scale verbal response: Orientated Rogers coma scale motor response: Obey commands Rogers coma scale total score: 15 SENSORY EXAM: Yes extremities (intact) Psych: COMMON NORMALS: mental status grossly normal, cooperative, denies hallucinations, denies homicidal ideation and denies suicidal ideation APPEARANCE: Yes disheveled ATTITUDE: Yes agitated ACTIVITY/MOTOR BEHAVIOR: Yes psychomotor agitation and Yes Avoids eye contact (attititude/behavior) SPEECH: Yes incoherent (Crying) and Yes Pressured speech present MOOD & AFFECT: Yes depressed mood and Yes tearful THOUGHT PROCESS: disorganized OTHER: Patient continues to repeat that (she) is just so anxious, crying, hyperventilating. Skin: COMMON NORMALS: no rashes or lesions noted GENERAL SKIN EXAM: no rashes or lesions noted Course Reevaluation(s): Reevaluation #1: Patient is feeling a little bit better. She is willing to go home, and continue this on a nightly basis with the Zyprexa, and check with her doctor on Thursday. Vital Signs: Vital signs: Vital Signs Temperature 97.5 F L 05/05/25 23:56 Pulse Rate 111 H 05/05/25 23:56 Respiratory Rate 18 05/05/25 23:56 Blood Pressure 114/85 05/05/25 23:56 Pulse Oximetry 96 05/05/25 23:56 Oxygen Delivery Me thod Room Air 05/05/25 23:56 MDM - Anxiety Medical Decision Making Patient is a 19-year-old female that presents to the emergency room adamantly denying suicidal ideation, homicidal ideation, or psychosis. Zyprexa will be given x 1. Will recheck patient and see if she calms down, and can be discharged home. Patient is feeling better and thinking more linear, not crying not, not hyperventilating. Boyfriend is at bedside. He notices a difference. She will be discharged home with nightly Zyprexa. Medical Records I reviewed the patient's medical records. No radiology studies performed this visit Discharge Plan Discharge Patient Disposition: Home Clinical Impression: Panic disorder Condition: Stable Prescriptions: New olanzapine [Zyprexa] 5 mg tablet 5 mg PO QPM PRN (Reason: anxiety) Qty: 30 0RF Rx Instructions: Do not exceed more than 4 pills in 24 hours. No Action hydroxyzine HCl 25 mg tablet 25 mg PO BID PRN (Reason: anxiety) Qty: 60 2RF Rx Instructions: Take one tablet twice a day, if needed for anxiety Discharge Orders: Discharge ED (Routine); Ordered 05/06/25 Ordered By: Melanie Arellano Referrals: Angeline Marmolejo PA [Primary Care Provider, Physicians Languages And Literature Instructor] Discharge Diet: Usual diet Discharge Activity: Resume usual activity Patient Instructions: Anxiety (ED), Patient Portal & Sari Instructions Activity Restrictions/Additional Instructions: - You received Zyprexa here that helped some. As well, this will continue to help throughout the night - Pharmacy has your new prescription of Zyprexa. Take at night as needed. You can take up to 2 times a day as needed for severe anxiety. - Call your local doctor/psychiatrist on Thursday to set up a plan for your medications and to control your panic attacks - It is important to have a plan in place for your anxiety attacks. - Return to ED if you do have suicide thoughts, ideas thank you for choosing [facility] for your healthcare needs today. You have been screened and evaluated and felt safe for discharge. Health conditions do change or evolve sometimes and as such it is important that you follow up with your Primary Doctor to be re checked, 3-5 days is a general good time frame for follow up. You are always welcome to return to the ED for re assessment if your symptoms are worsening or you have new concerns Print Language: Italian Coding Level of Care Code ED Rotary Derrick Operator for Sen Sanchez
== END 2025-05-06 01:02 | disposition home or self-care (01) ==
PROVIDERS: Emergency Provider Physician Assistant; PCP Physician Assistant
DX: F41.0 Panic disorder [episodic paroxysmal anxiety] (principal); F17.290 Nicotine dependence, other tobacco product, uncomplicated
CPT/HCPCS: 99283; J9999

== ENCOUNTER 2025-05-11 04:54 | Inpatient (IN) | payer MEDICAID, SELFPAY ==
[2025-05-11 05:00] VITALS: BP 128/77; PULSE 92; RESP 22; TEMP 36.4; O2SAT 96; BMI 22.2
--- OUTSIDE RECORDS SUMMARY | 2025-05-11 05:01 | XMS_ITS | Data Portability ---
Author Organization AUDREY Eric Nunez [facility], ShadiaShadiaShadia, [facility] Address [address] [facility] [address] [place] [address] Care Team Providers Care Ski Molder Name Role Phone MARGOT MARMOLEJO Primary Care Provider Unavailabl e Assessment No assessment recorded. Plan of Treatment Reminders Order Date Submit Date Provider Last Modified By Organization Details Last Modified Time Details Appointments OFFICE VISIT 20 2024 11:00A M MARGOT MARMOLEJO PA-C Not available Not available Not available Lab unlisted lab - sureswab( R) advanced vaginitis plus, tma 2024 025 [facility], [address] [place] [address], [address], [place], [address], 10/29/2024 11:22:21 pap, LB 2024 025 [facility], [address] [place] [address], [address], [place], [address], 11/01/2024 20:13:09 urinalysi s, dipstick 2024 025 [email or web address] [facility] ([facility]), [address] [place], [address], 09/06/2024 07:53:09 culture, urine 2024 025 [facility], [address] [place] [address], [address], [place], [address], 09/07/2024 02:19:46 vitamin D, 25-hydrox y, total, serum [address] [facility], [address] [place] [address], [address], [place], [address], 07/30/2024 09:35:53 vitamin B12, serum [address], [address] [place] [address], [address], [place], [address], 07/30/2024 09:35:51 folate, serum [address] [facility], [address] [place] [address], [address], [place], [address], 07/30/2024 09:35:47 vitamin B1 (thiamine ), serum [email or web address], [address] [place] [address], [address], [place], [address], 08/02/2024 07:15:49 TSH, serum or plasma [address] [facility], [address] [place] [address], [address], [place], [address], 07/30/2024 09:35:49 T4, free, serum [address] [facility], [address] [place] [address], [address], [place], [address], 07/30/2024 09:35:48 T3, free, serum or plasma [address] [facility], [address] [place] [address], [address], [place], [address], 07/30/2024 09:35:52 CBC w/ auto diff 2024 025 [email or web address] [facility], [address], [place], [address], 08/02/2024 07:15:49 CMP, serum or plasma 2024 [facility], [address] [facility] [address], [address], [place], [address], 07/30/2024 09:35:46 lithium, serum 2024 [facility], [address] [facility] [address], [address], [place], [address], 07/30/2024 09:35:54 Referral None recorded. Procedures None recorded. Surgeries None recorded. Imaging None recorded. Medication Orders cetirizin e 10 mg tablet 2024 [email or web address]30, [address], [place], [place], [id number], 01/04/2025 13:22:41 fluticaso ne propionat e 50 mcg/actua tion nasal spray,digna pension 2024 [email or web address] #08335, [address], [place], [place], [id number], 01/04/2025 13:22:39 Advair Diskus 250 mcg-50 mcg/dose powder for inhalatio n 2024 [email or web address] #46289, [address], [place], [place], [id number], 01/04/2025 13:22:40 Ventolin HFA 90 mcg/actua tion aerosol inhaler 2024 [email or web address] #29775, [address], [place], [place], [id number], 01/04/2025 13:22:40 fluconazo le 150 mg tablet 2024 025 [facility] #30414, [address], [place], [place], [id number], 11/05/2024 05:01:19 doxycycli ne hyclate 100 mg capsule 2024 025 [facility] #11916, [address], [place], [place], [id number], 11/11/2024 05:01:57 ceftriaxo ne 500 mg solution for injection 2024 025 [email or web address] Not available 01/04/2025 13:02:46 hydroxyzi ne HCl 25 mg tablet 2024 025 [email or web address] [facility] #10614, [address], [place], [place], [id number], 01/04/2025 13:02:59 Patient TargetsNo targets recorded. Patient InstructionsNo instructions recorded. Reason for Referral None Reported. Results Created Date Observation Date Name Description Value Unit Range Abnormal Flag Note LastModifiedBy Organization Detail LastModifiedTime 07/27/1907/26/2024 CBC WBC 10.9 x10 4.0-10 .5 high Not Available [facility] [address] [facility] [address], [place], [address], 07/26/2024 15:59:26 07/27/19 25 07/26/2024 CBC RBC 4.07 x10 3.50-5 .50 Not Available [facility] [address] [facility] [address], [place], [address], 07/26/2024 15:59:26 07/27/19 25 07/26/2024 CBC HGB 14.1 g/dL 12.0-1 6.0 Not Available [facility] [address] [facility] [address], [place], [address], 07/26/2024 15:59:26 07/27/19 25 07/26/2024 CBC HCT 38.7 % 37.0-4 7.0 Not Available [facility] [address] [facility] [address], [place], [address], 07/26/2024 15:59:26 07/27/19 25 07/26/2024 CBC MCV 95.2 fL 80.0-9 9.9 Not Available [facility] [address] [facility] [address], [place], [address], 07/26/2024 15:59:26 07/27/19 25 07/26/2024 CBC MCH 34.6 pg 27.0-3 2.0 high Not Available [facility] [address] [facility] [address], [place], [address], 07/26/2024 15:59:26 07/27/19 25 07/26/2024 CBC MCHC 36.4 g/dL 32.0-3 6.0 high Not Available [facility] [address] [facility] [address], [place], [address], 07/26/2024 15:59:26 07/27/19 25 07/26/2024 CBC RDW 12.7 % 11.5-1 4.5 Not Available [facility] [address] [facility] [address], [place], [address], 07/26/2024 15:59:26 07/27/19 25 07/26/2024 CBC plt 303.3 x10 140.0- 451.0 Not Available [facility] [address] [facility] [address], [place], [address], 07/26/2024 15:59:26 07/27/19 25 07/26/2024 CBC lymphocytes % 17.8 % 20.0-5 0.0 low Not Available [facility] [address] [facility], [place], [address], 07/26/2024 15:59:26 07/27/19 25 07/26/2024 CBC granulcytes % 73.2 % 30.0-7 0.0 high Not Available [facility] [address] [facility] [place] [address], [place], [address], 07/26/2024 15:59:26 07/27/19 25 07/26/2024 CBC monocytes % 7.6 % 2.0-16 .0 Not Available [facility] [address] [facility] [address], [place], [address], 07/26/2024 15:59:26 07/27/19 25 07/26/2024 CBC granulcytes# 8.0 x10 Not Karina ilable [facility] [address] [facility] [address], [place], [address], 07/26/2024 15:59:26 07/27/19 25 07/26/2024 CBC lymphocytes # 2.0 x10 Not Available [facility] [address] [facility], [place], [address], 07/26/2024 15:59:26 07/27/19 25 07/26/2024 CBC monocytes # 0.8 x10 Not Avai lable [facility] [address] [address], [place], [address], 07/26/2024 15:59:26 07/27/19 25 07/30/2024 COMPR EHENS YUNIOR METAB OLIC PANEL glucose 84 mg/dL 65-99 normal Fasti ng refer ence inter ritu Not Available [facility] [address], [place], [address], 07/30/2024 09:35:46 07/27/19 25 07/30/2024 COMPR EHENS YUNIOR METAB OLIC PANEL urea nitrogen (BUN) 10 mg/dL 7-25 normal Not Available [address] [place], [address], 07/30/2024 09:35:46 07/27/19 25 07/30/2024 COMPR EHENS YUNIOR METAB OLIC PANEL creatinine 0.83 mg/dL 0.50-0 .96 normal Not Available [address], [address], 07/30/2024 09:35:46 07/27/19 25 07/30/2024 COMPR EHENS YUNIOR METAB OLIC PANEL eGFR 103 mL/mi n/1.7 3m2 > or = 60 normal Not Available [address], [address], 07/30/2024 09:35:46 07/27/19 25 07/30/2024 COMPR EHENS YUNIOR METAB OLIC PANEL BUN/creatini ne ratio SEE NOTE: (calc ) 6-22 Not Repor zoltan: BUN and Creat inine are withi n refer ence range . Not Available [address], [address], 07/30/2024 09:35:46 07/27/19 25 07/30/2024 COMPR EHENS YUNIOR METAB OLIC PANEL sodium 138 mmol/ L 135-14 6 normal Not Available [address], [address], 07/30/2024 09:35:46 07/27/19 25 07/30/2024 COMPR EHENS YUNIOR METAB OLIC PANEL potassium 3.9 mmol/ L 3.5-5. 3 normal Not Available [address], [address], 07/30/2024 09:35:46 07/27/19 25 07/30/2024 COMPR EHENS YUNIOR METAB OLIC PANEL chloride 105 mmol/ L 98-110 normal Not Available [address], [address], 07/30/2024 09:35:46 07/27/19 25 07/30/2024 COMPR EHENS YUNIOR METAB OLIC PANEL carbon dioxide 27 mmol/ L 20-32 normal Not Available [address], [address], 07/30/2024 09:35:46 07/27/19 25 07/30/2024 COMPR EHENS YUNIOR METAB OLIC PANEL calcium 10.0 mg/dL 8.6-10 .2 normal Not Available [address], [address], 07/30/2024 09:35:46 07/27/19 25 07/30/2024 COMPR EHENS YUNIOR METAB OLIC PANEL protein, total 7.7 g/dL 6.1-8. 1 normal Not Available [address], [address], 07/30/2024 09:35:46 07/27/19 25 07/30/2024 COMPR EHENS YUNIOR METAB OLIC PANEL albumin 4.9 g/dL 3.6-5. 1 normal Not Available [address], [address], 07/30/2024 09:35:46 07/27/19 25 07/30/2024 COMPR EHENS YUNIOR METAB OLIC PANEL globulin 2.8 g/dL_ (calc ) 1.9-3. 7 normal Not Available [address], [address], 07/30/2024 09:35:46 07/27/19 25 07/30/2024 COMPR EHENS YUNIOR METAB OLIC PANEL albumin/glob ulin ratio 1.8 (calc ) 1.0-2. 5 normal Not Available [address], [address], 07/30/2024 09:35:46 07/27/19 25 07/30/2024 COMPR EHENS YUNIOR METAB OLIC PANEL bilirubin, total 0.8 mg/dL 0.2-1. 2 normal Not Available [address], [address], 07/30/2024 09:35:46 07/27/19 25 07/30/2024 COMPR EHENS YUNIOR METAB OLIC PANEL alkaline phosphatase 60 U/L 31-125 normal Not Available [facility] [employer] [address], [address], 07/30/2024 09:35:46 07/27/1907/30/2024 COMPR EHENS YUNIOR METAB OLIC PANEL AST 16 U/L 10-30 normal Not Available [address], [address], 07/30/2024 09:35:46 07/27/1907/30/2024 COMPR EHENS YUNIOR METAB OLIC PANEL ALT 11 U/L 6-29 normal Not Available [address], [address], 07/30/2024 09:35:46 07/27/1907/30/2024 FOLAT E, SERUM folate, serum 17.2 NG/mL normal Refer ence Range Low: <3.4 Borde rline : 3.4-5 .4 Sapphire l: >5.4 Not Available [address], [address], 07/30/2024 09:35:47 07/27/1907/30/2024 T4, FREE T4, free 1.0 NG/dL 0.8-1. 4 normal Not Available [address], [address], 07/30/2024 09:35:48 07/27/1907/30/2024 TSH TSH 1.86 mIU/L normal Refer ence Range > or = 20 Years 0.40- 4.50 Pregn tsering Range s First trime ster 0.26- 2.66 Secon d trime ster 0.55- 2.73 Third trime ster 0.43- 2.91 Not Available [address] [address] [place], [address], 07/30/2024 09:35:49 07/27/19 25 07/30/2024 VITAM IN B12 vitamin B12 411 pg/mL 200-11 00 normal Not Available [facility] [address] [address] [place], [address], 07/30/2024 09:35:51 07/27/1907/30/2024 T3, FREE T3, free 2.9 pg/mL 3.0-4. 7 low Not Available [address] [address] [place], [address], 07/30/2024 09:35:52 07/27/1907/30/2024 VITAM IN D,25- [place],TO [...] /MS is recom miguel d: order code 87879 (nikole ents >2yrs ). See Note 1 Note 1 For addit ional infor eros kent refer to http: //kisha Casillas stDia gnost ics.c om/fa q/FAQ 199 (This link is being provi ded for infor maikol santillan/ educroverto wallace purpo ses only. ) Not Available [facility] [address] [address] [place], [address], 07/30/2024 09:35:52 07/27/19 25 07/30/2024 VITAM IN B1 (THIA MINE) , BLOOD [...] cteri stics have been deter mined by [facility]. It has not been clear ed or appro griselda by FDA. This assay has been valid ated pursu ant to the CLIA regul ation s and is used for clini juan purpo ses. MDF med fusio n [address] [facility] [address] [facility] [address] [phone] [facility] Bhavin Keita MD, PhD Not Available [facility] [address] [address] [place], [address], 07/30/2024 09:35:54 07/27/19 25 07/30/2024 LITHI UM lithium 1.3 mmol/ L 0.6-1. 2 high Not Available [facility] [address] [address] [place], [address], 07/30/2024 09:35:54 09/06/19 25 09/07/2024 CULTU RE, URINE , ROUTI NE culture, urine, routine SEE NOTE abnormal CULTU RE, URINE , ROUTI NE Micro Numbe r: [id number] Test Statu s: Final Speci men [...] er testi ng perfo rmed. Not Available [employer] [facility] [address] [place], [address], 09/07/2024 02:19:43 09/06/19 25 09/05/2024 urina lysis , dipst ick Leukocytes Small Not Available [facility] ( [facility]) [address] [place] [address], [address], 09/05/2024 13:23:03 09/06/19 25 09/05/2024 urina lysis , dipst ick Nitrite negati ve Not Available [facility] ([facility]) [address] [place], [address], 09/05/2024 13:23:03 09/06/19 25 09/05/2024 urina lysis , dipst ick Urobilinogen 1 Not Available [facility] ([facility]) [address] [place], [address], 09/05/2024 13:23:03 09/06/19 25 09/05/2024 urina lysis , dipst ick Protein 100 Not Available [facility] ([facility]) [address] [place], [address], 09/05/2024 13:23:03 09/06/19 25 09/05/2024 urina lysis , dipst ick pH 8.5 Not Available [facility] ([facility]) [address] [place] [address], [address], 09/05/2024 13:23:03 09/06/19 25 09/05/2024 urina lysis , dipst ick Blood Hemoly zed: Trace Not Available [facility] ([facility]) [address] [place], [address], 09/05/2024 13:23:03 09/06/19 25 09/05/2024 urina lysis , dipst ick Specific [place] 1.020 Not Available [facility] ( [facility]) [address] [place], [address], 09/05/2024 13:23:03 09/06/19 25 09/05/2024 urina lysis , dipst ick Ketone Negati ve Not Available [facility] ([facility]) [address] [place], [address], 09/05/2024 13:23:03 09/06/19 25 09/05/2024 urina lysis , dipst ick Bilirubin Negati ve Not Available [facility] ([facility]) [address] [place], [address], 09/05/2024 13:23:03 09/06/19 25 09/05/2024 urina lysis , dipst ick Glucose Negati ve Not Available [facility] ([facility]) [address] [place], [address], 09/05/2024 13:23:03 09/06/19 25 09/05/2024 urina lysis , dipst ick Appearance Clear Not Available [facility] ( [facility]) [address] [place], [address], 09/05/2024 13:23:03 09/06/19 25 09/05/2024 urina lysis , dipst ick Color Yellow Not Available [facility] ([facility]) [address] [place], [address], 09/05/2024 13:23:03 10/29/19 25 10/29/2024 SURES WAB(R ) ADVAN SIDNEY VAGIN ITIS PLUS, TMA sureswab(R) adv bacterial vaginosis (bv), tma POSITI VE negati ve abnormal Not Available [facility] [address], [address], 10/29/2024 11:22:21 10/29/19 25 10/29/2024 SURES WAB(R ) ADVAN SIDNEY VAGIN ITIS PLUS, TMA dago species DETECT ED not detect ed abnormal Not Available [facility] [address], [address], 10/29/2024 11:22:21 10/29/19 25 10/29/2024 SURES WAB(R [...] spp. resul t. Not Available [facility] [address], [address], 10/29/2024 11:22:21 10/29/19 25 10/29/2024 SURES WAB(R ) ADVAN SIDNEY VAGIN ITIS PLUS, TMA trichomonas vaginalis (TV), tma NOT DETECT ED not detect ed normal Not Available [facility] [address], [address], 10/29/2024 11:22:21 10/29/19 25 10/29/2024 SURES WAB(R ) ADVAN SIDNEY VAGIN ITIS PLUS, TMA chlamydia trachomatis RNA, tma, urogenital NOT DETECT ED not detect ed normal Not Available [facility] [address], [address], 10/29/2024 11:22:21 10/29/19 25 10/29/2024 SURES WACameron(R ) ADVAN SIDNEY VAGIN ITIS PLUS, TMA neisseria gonorrhoeae RNA, tma, urogenital NOT DETECT ED not detect ed normal For addit ional infor eros kent refer to https ://ed ucati on.qu rasheedAlibaba. Feidee/f aq/FA Q154 (This link is being provi ded for infor maikol salazar/ duncan wallace purpo ses only. ) Not Available [address], [address], 10/29/2024 11:22:21 10/29/19 25 11/01/2024 IMAGE -GUID ED PAP W/AGE BASED SCR JESSI COLS comment This order for age-b ased cervi juan cance r and STI scree augusta follo ws ACOG guide lines (PB 168, 140, FAQ07 1). See indiv idual assay s for perfo rming site locat ion. Not Available [address], [address], 11/01/2024 20:13:09 10/29/19 25 11/01/2024 IMAGE -GUID ED PAP W/AGE BASED SCR JESSI COLS clinical information: normal Sapphire l exam Not Available [address], [address], 11/01/2024 20:13:09 10/29/19 25 11/01/2024 IMAGE -GUID ED PAP W/AGE BASED SCR JESSI COLS LMP: normal NONE GIVEN Not Available [address], [address], 11/01/2024 20:13:09 10/29/19 25 11/01/2024 IMAGE -GUID ED PAP W/AGE BASED SCR JESSI COLS prev. Pap: normal NONE GIVEN Not Available [address] [place], [address], 11/01/2024 20:13:09 10/29/1911/01/2024 IMAGE -GUID ED PAP W/AGE BASED SCR JESSI COLS prev. BX: normal NONE GIVEN Not Available [address] [place], [address], 11/01/2024 20:13:09 10/29/19 25 11/01/2024 IMAGE -GUID ED PAP W/AGE BASED SCR JESSI COLS source: normal Cervi x, Endoc ervix Not Available [facility] [address] [place], [address], 11/01/2024 20:13:09 10/29/19 25 11/01/2024 IMAGE -GUID ED PAP W/AGE BASED SCR JESSI COLS statement of adequacy: normal Satis facto ry for evalu ation . Endoc ervic al/tr ansfo rmati on zone compo nent prese nt. Age and/o r menst rual statu s not provi ded Not Available [facility] [address] [place], [address], 11/01/2024 20:13:09 10/29/1911/01/2024 IMAGE -GUID ED PAP W/AGE BASED SCR JESSI COLS interpretati on/result: normal Cytol ogy Resul ts: Negat yunior for intra epith elial lesio n or malig kevin . Not Available [facility] [address] [place], [address], 11/01/2024 20:13:09 10/29/1911/01/2024 IMAGE -GUID ED PAP W/AGE BASED SCR JESSI COLS infection: normal Funga l organ isms morph ologi yehuda consi stent with Yael da spp. Shift in vagin al franchesca sugge stive of bacte rial vagin osis. Not Available [facility] [address] [address] [place], [address], 11/01/2024 20:13:09 10/29/19 25 11/01/2024 IMAGE -GUID ED PAP W/AGE BASED SCR JESSI COLS comment: normal This Pap test has been evalu ated with sumit stanley techn ology . Not Available [address] [address] [place], [address], 11/01/2024 20:13:10/29/19 25 11/01/2024 IMAGE -GUID ED PAP W/AGE BASED SCR JESSI COLS cytotechnolo gist: normal ABC, CT( CP) CT scree augusta locat ion: [address] [place] [address] Not Available [address] [address] [place], [address], 11/01/2024 20:13:09 10/29/19 25 11/01/2024 IMAGE -GUID [...] clini juan infor matio n. Not Available [address], [place], [address], 11/01/2024 20:13:09 10/29/19 25 11/01/2024 IMAGE -GUID ED PAP W/AGE BASED SCR JESSI COLS chlamydia trachomatis RNA, tma, urogenital NOT DETECT ED not detect ed normal Not Available [address] [address] [place], [address], 11/01/2024 20:13:09 10/29/19 25 11/01/2024 IMAGE -GUID ED PAP W/AGE BASED SCR JESSI COLS neisseria gonorrhoeae RNA, tma, urogenital NOT DETECT ED not detect ed normal Not Available [facility] [address] [place], [address], 11/01/2024 20:13:09 10/29/19 25 11/01/2024 IMAGE -GUID ED PAP W/AGE BASED SCR JESSI COLS comment The bobby tical perfo rmanc e lucia cteri stics of this assay , when used to test SureP ath(T M) speci mens have been deter mined by [facility]. The modif icati ons have not been clear ed or appro griselda by the FDA. This assay has been valid ated pursu ant to the CLIA regul ation s and is used for clini juan purpo ses. For addit ional infor eros kent refer to https ://ed ucati on.qu estAlibaba. Feidee/f aq/FA Q154 (This link is being provi ded for infor maikol salazar/ educa arabella l purpo ses only. ) Not Available [facility] [address], [place], [address], 11/01/2024 20:13:09 Result Notes None recorded. Problems Name Problem SNOMED Code Status Onset Date Resolution Date Notes Provider Name and Address Organization Details Recorded Time Moderate persistent asthma 873689066 Active [address] [facility] 5 19:23:38 Anxiety 13728548 Active [address] [facility]adia 19:23:27 Problem Notes None recorded. Procedures Surgical History Date Name Laterality Status Provider Name and Address Organization Details Recorded Time screening for malignant neoplasm of cervix completed MELVINA MACKAY [facility]ia 11/02/2024 14:17:12 Eye Surgery completed Theresa Samuel [facility] [place] 08/28/2023 13:07:11 Imaging Results None recorded. Procedure [...] and Address Organization Details Last Updated DateTime 03/11/202 5 149.86 cm 30 % 20.2 kg/m2 31275.2 4 g 99 % 80 /min 18 /min 98 [degF] 100/70 mm[Hg] MELVINA LEWISBALBIR [facility] L.L.CShadia 5 14:08:53 Date Recorded Body height Body temperature Heart rate Oxygen saturation Systolic And Diastolic Provider Name and Address Organization Details Last Updated DateTime 5 149.86 cm 98.4 [degF] 81 /min 99 % 118/64 mm[Hg] Aleida [facility] L[facility]CShadia 5 13:39:38 Date Recorded Body height Body mass index (BMI) Body mass index (BMI) [Percentile] Per age and sex Body weight Body temperature Heart rate Oxygen saturation Systolic And Diastolic Provider Name and Address Organization Details Last Updated DateTime 5 149.86 cm 20.3 kg/m2 31 % 57427.3 4 g 98.6 [degF] 98 /min 99 % 122/70 mm[Hg] Aleida [facility] L[facility]L.CShadia 5 13:19:13 Date Recorded Body height Body mass index (BMI) Body weight Oxygen saturation Heart rate Respiratory rate Body temperature Systolic And Diastolic Provider Name and Address Organization Details Last Updated DateTime 5 149.86 cm 21.2 kg/m2 44313.2 g 99 % 80 /min 18 /min 98 [degF] 120/70 mm[Hg] MELVINA LEWISBALBIR [facility] L[facility]CSh[facility]ia 5 10:43:34 Date Recorded Body height Body mass index (BMI) Body weight Respiratory rate Oxygen saturation Heart rate Body temperature Systolic And Diastolic Provider Name and Address Organization Details Last Updated DateTime 5 149.86 cm 20.9 kg/m2 21422.1 1 g 17 /min 98 % 105 /min 98.5 [degF] 118/74 mm[Hg] MATTHEW ELIAS [facility] L.L.CShadia 5 13:02:28 Social History Question Answer Notes LastModified by Organizat ion Details LastModified Time Tobacco Smoking Status Former Smoker MATTHEW CURT halima [facility] 01/04/2025 13:04:16 Which Illicit Or Recreational Drugs Have You Used? Marijuana Information not available 08/28/2023 What Was The Date Of Your Most Recent Tobacco Screening? 01/04/2025 Information not available 01/04/2025 Has Tobacco Cessation Counseling Been Provided? Yes [email or web address] Information not available 07/14/2023 On What Date Was Tobacco Cessation Counseling Provided? 07/14/2023 [email or web address] Information not available 07/14/2023 Have You Used IV Drugs? No Information not available 08/28/2023 How Many Years Have You Used E-cigarettes Or Vape? 2 [email or web address] Information not available 07/14/2023 Sex: Unknown Functional Status Question Answer Note LastModified by Organizat ion Details LastModified Time Do you use any illicit or recreational drugs? Yes Information not available 08/28/2023 Do you or have you ever used any other forms of tobacco or nicotine? Yes [email or web address] Information not available 07/14/2023 What is your level of alcohol consumption? None Information not available 08/28/2023 Do you or have you ever used smokeless tobacco? Never used smokeless tobacco [email or web address] Information not available 07/14/2023 Do you or have you ever used e-cigarettes or vape? Current user of electronic cigarettes [email or web address] Information not available 07/14/2023 Do you or have you ever used any nicotine-free cigarettes, vape, or chewing tobacco? No [email or web address] Information not available 01/04/2025 Mental Status None [...] Organization Details Recorded Time Tdap 7 completed MARGOT MARMOLEJO PA-C [address] [place] [address], [phone], [facility] 11/12/2023 11:25:25 meningococcal MCV4P 1 completed MARGOT MARMOLEJO PA-C [address] [place] [address], [phone], [facility] 11/12/2023 11:25:25 meningococcal MCV4P 7 completed MARGOT MARMOLEJO PA-C [address] [place] [address], [phone], [facility] 11/12/2023 11:25:25 Past Encounters Encounter ID Performer Location Encounter Start Date Encounter Closed Date Diagnosis/Indication Diagnosis SNOMED-CT Code Diagnosis ICD10 Code Diagnosis IMO Codes Diagnosis Note [id number] LUISA BENNETT [facility] ([facility]) [address] [place] [address] 04/28/2023 13:15:16 05/25/2023 08:48:46 Diarrhea 66504015 R19.7 Discussed with patient that the diarrhea [...] understand ing. Fibroadeno ma of bilateral breasts [id number] 8354184 D24.1 Discussed with patient that I suspect these lumps are fibroadeno mas. However, due to pain, will refer to OBGYN per patient request for further evaluation and re-assuran ce. [id number] LUISA [facility]EN[facility]T [facility] ([facility]) [address] [place] [address] 05/05/2023 16:49:56 05/24/2023 06:38:33 Missed period 40553443 N92.5 Negative UPT today. Will check beta-HCG quantitati ve today and will call patient with results. Discussed with patient that she should follow up with PCP in 1-2 weeks if she does not start her menstrual cycle. She should continue her daily medication s as prescribed at this time. Will call with results in 2-3 days. Patient is agreeable to plan of care. [id number] MARGOT MARMOLEJO PA-C [facility] ([facility]) [address] [place] [address] 06/11/2023 10:59:42 06/11/2023 12:10:44 Moderate persistent asthma 995068289 J45.40 Borderline personality disorder 23392071 F60.3 managed by [facility] [place] [facility] [place] [id number] MARGOT MARMOLEJO PA-C [facility] ([facility]) [address] [place] [address] 07/14/2023 11:25:38 07/14/2023 12:51:37 Moderate persistent asthma 190936239 J45.40 Nicotine dependence 5629 4008 F17.200 Thiamine deficiency 3993 66450 E51.[id number] [facility] ([facility]) [address] [place] [address] 08/28/2023 12:58:13 08/28/2023 13:54:44 Sore throat 409919745 J02.9 Viral uppe r respiratory tract infection 077624467 J06.9 Neg strep today. Patient presented with [...] to 2 weeks if symptoms not improving. [id number] MARGOT MARMOLEJO PA-C [facility] ([facility]) [address] [place] [address] 11/12/2023 11:02:31 11/27/2023 10:23:34 Mixed anxiety and depressive disorder 705111214 F41.8 Pt forms filled out for her [facility] she is trying to get into. See scanned documents. Borderline personality disorder F60.3 managed by [facility] [place] [facility] [place] Moderate p ersistent asthma 490175000 J45.40 [id number] MARGOT MARMOLEJO PA-C 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 Ware.Will see if I can get her in to Monique Allred LCSW here at for counseling Moderate p ersistent asthma 487256482 J45.40 Borderline personality disorder 77425446 F60.3 managed by [facility] [place] [facility] [id number] Estuardo Coburn MD [facility] ([facility]) [address] [place] [address] 03/03/2024 10:54:08 03/03/2024 17:41:00 Dysuria 11890308 R30.0 UA was obtained and did show small amount of blood. On her symptoms we will treat for UTI as we await culture. Will also send urine for STD testing. Safe sex practices. Patient was instructed to avoid all sexual activity until results are back. Acute pelvic pain 346421 005 R10.2 The patient does have significan t pelvic discomfort on exam. Based on last menstrual period this could very well be an ovulation cyst. Will go ahead and obtain an ultrasound . Microscopic hematuria 19 8518548 R31.[id number] [facility] ([facility]) [address] [place] [address] 03/08/2024 10:32:12 03/08/2024 13:34:32 Pelvic and perineal pain 543763644 R10.2 [id number] MARGOT MARMOLEJO PA-C [facility] ([facility]) [address] [place] [address] 04/28/2024 11:59:25 04/28/2024 12:57:45 Migraine 00660243 G43.909 worsening COSTA now occuring daily. mood changes. foggy thinking.n o double vision, no falls, no numbness. Change in personality 19 5258733 F69 [id number] Estuardo Coburn MD [facility] ([facility]) [address] [place] [address] 05/19/2024 13:14:16 05/21/2024 18:32:08 Anxiety 27019100 F41.9 Patient has tried multiple as needed anxiolytic s in the past as been very successful . Will provide a short course of Ativan today to help with her symptoms until she can get into see [facility]. [id number] MARGOT MARMOLEJO PA-C [facility] ([facility]) [address] [place] [phone] 05/26/2024 14:41:24 06/10/2024 16:10:50 Borderline personality disorder 00638144 F60.3 managed by [facility] [place] [facility] Bipolar II disorder 8322 5002 F31.81 told her we may occational ly fill her ATivan but very sparingly and not on a chronic daily basis.She is getting a counselor. [id number] MARGOT MARMOLEJO PA-C [facility] ([facility]) [address] [place] [address] 5 06/08/2024 14:02:09 06/20/2024 07:58:41 Bipolar II disorder 89741441 F31.81 told her we may occational ly fill her ATivan but very sparingly and not on a chronic daily basis.She is getting a counselor. Her meds are managed by [facility] Borderline personality disorder 85390380 F60.3 Moderate p ersistent asthma 325039204 J45.40 [id number] MARGOT MARMOLEJO PA-C [facility] ([facility]) [address] [place] [id number] 07/26/2024 14:05:00 07/26/2024 14:38:25 Anxiety 50145023 F41.9 Moderate p ersistent asthma 199771763 J45.40 Long-term current use of drug therapy 318760320 Z79.899 Medication monitoring 39 5126800 Z51.[id number] [facility] ([facility]) [address] [place] [address] 09/03/2024 13:31:11 09/03/2024 23:20:50 Anxiety 04981013 F41.9 93744 Discussed use of PRN hydroxyzin e. Continue lithium as prescribed . Keep appt scheduled on Thursday.If you develop SI or HI then f/u in ER [id number] Carlito Trejo DO [facility] ([facility]) [address] [place] [address] 09/05/2024 13:06:44 09/05/2024 14:22:13 Flank pain 555471836 R10.9 13927 Cyst of right ovary 1223 081768 3799150 N83.201 412455 concern for acute flairup. continue heating pad, tylenol and IBU. pt to increase IBU to 600mg po TiD Otc. expect improvemen t over the next 3-5 days, if worsening go to ER, if not improved by then, come in for f/u appt with pcp, may need US. counseled [id number] MARGOT MARMOLEJO PA-C [facility] ([facility]) [address] [place] [address] 5 10/28/2024 10:39:37 10/28/2024 15:34:04 Vaginal discharge 247272697 N89.8 32557 concern from mild PID> Will tx her while waiting for results of STIs. Gynecologi c examination 23355186 Z01.377 [id number] High risk heterosexual behavior [id number] 99687 Z72.51 5408764 Exposure t o Neisseria gonorrhoeae 257139888 Z20.[id number] [facility] ([facility]) [address] [place] [address] 01/04/2025 12:54:31 01/04/2025 13:27:16 Environmental allergy 000248236 Z91.09 111787 May use meds like zyrtec and fluticason e nasal spray as needed for symptoms. Return to clinic with any new or worsening symptoms. Moderate p ersistent asthma 704975314 J45.40 refills given. Follow up with Margot Marmolejo PCP Health Concerns Section Related Observation LastModified by Organization Detai ls LastModified Time None Recorded Concern Status LastModified by Organization Details LastModified Time None Recorded Advance Directives Directive None Recorded Payers Insurance Date Sequence Insurance Name Policy Number Policy Ovalle Covered Member ID Ovalle Member ID Guarantor Name 02/25/2025 [facility] (MEDICAID HMO) Johanne Wolfe [id number] Johanne Wolfe 11/01/2024 1 [facility] () Anthony Halferty [id number] Johanne Halflul 05/26/2023 1 [employer] LIFE () Johanne Halflul [id number] Johanne Halflul 03/09/2025 1 [facility] (MEDICAID HMO) Johanne Wolfe [id number] Johanne Wolfe 03/09/2025 [place] Johanne Wolfe [id number] Johanne Wolfe Notes Date Note Type Note [...] feel more angry. Now just on the Cusick. needs her levels checked as well. Sees [facility] for med managememt. MARGOT MARMOLEJO PA-C [address] [place], [address], [facility] [place]. 07/26/2024 14:32:41 09/03/2024 text/html Generalized Anxi ety DisorderReported by PatientROS as noted in the HPI walk in ptPt hasn't eaten for 2 days due to her anxiety and is not sleeping. Has an appt to see her psychiatrist on Thursday. Denies SI or HI. States there was no trigger. Currently takes Cusick daily. Last dose adjustment was about 4-5 weeks ago. ERIKA SIGALA, POLLO [address] [place], [address], [facility] 09/03/2024 14:06:22 09/05/2024 text/html walk in ptPT [...] was several days. Carlito Trejo, DO [address] [place], [address], [facility] 09/05/2024 14:18:56 10/28/2024 text/html Vaginal DischargeReported [...] I just need something prn for anxiety. MARGOT MARMOLEJO PA-C [address] [place], [address], [facility] [place] 10/28/2024 15:28:44 01/04/2025 text/html ROS as noted in the HPI walk-in; PCP Margot Marmolejo Patient states she works at [employer] and all the AC units have black mold. Over the past month and a half, her throat salter, nose salter and eyes itch and water while she's at work. Does not have the symptoms when she's at home. She's also fatigued and will get headaches at work. Also is needing refills on her medications. POLLO DAWSON [address] [place], [address], [facility] [place] 01/04/2025 13:23:13 OBGyn Episode No OBEpisode recorded.
[2025-05-11 05:06] VITALS: BP 128/77; PULSE 92; RESP 22; TEMP 36.4; O2SAT 96
--- NOTE | 2025-05-11 05:18 | ECG_ITS ---
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 Requested By: Danis Ordaz Order Number: [id number] Jasper MD: JENIFER HENRIQUEZ Measurements Intervals [place] Rate: 97 P: 60 [place]: 137 QRS: -9 QRSD: 86 T: 31 QT: 337 QTc: 430 Interpretive Statements SINUS RHYTHM WITH OCCASIONAL ECTOPIC PREMATURE COMPLEXES POSSIBLE LEFT ATRIAL ENLARGEMENT [-0.1mV P-WAVE IN V1/V2] POSSIBLE RIGHT VENTRICULAR CONDUCTION DELAY [RSR (QR) IN V1/V2] Compared to ECG 03/23/2025 01:44:03 Sinus arrhythmia no longer present Electronically Signed On 05-14-2025 23:27:17 IMPROVEMENT DIRECTOR by JENIFER HENRIQUEZ [email or web address]
--- NOTE | 2025-05-11 05:35 | ED.C_ITS ---
HPI - Psych 2 General: Chief Complaint: Psychiatric Symptoms Stated Complaint: SI feeling very anxious Time Seen by Provider: 05/11/25 05:12 History of Present Illness: This 19-year-old female presents with increased anxiety, panic and thoughts of suicide. She expresses reluctance to start new medications due to past experiences where medications either lost effectiveness over time or caused physical side effects. The patient also mentions increased alcohol consumption, which she wishes to discontinue. She was placed on Zyprexa on her last visit to the emergency department 2 to 3 days ago. She says that this caused facial swelling and hives. She has not had any other medications since stopping this for her anxiety. She is in tears on the interview. Related Data Previous Rx's ?Medication ?Instructions ?Recorded hydroxyzine HCl 25 mg tablet 25 mg PO BID PRN anxiety #60 tabs 09/22/24 Allergies Allergy/AdvReac Type Severity Reaction Status Date / Time olanzapine Allergy ADR-Swelling Verified 05/11/25 05:10 of the Eye [facility] ED 2 PFSH: Medical History Suicide attempt Major depressive disorder, recurrent, moderate Nicotine use disorder History of posttraumatic stress disorder (PTSD) Psychiatric care Vitamin B 12 deficiency Family planning Leg pain Leg strain Social History Smoking and tobacco/nicotine status: current every day tobacco/nicotine user e- cigarettes E-Cigarette Details: vaporizer device and with nicotine E-cig/vape details: Refill/week Quit status (tobacco/nicotine): has tried quititng Number of times tried to quit tobacco: 2 Second hand smoke exposure: No Alcohol intake: former Year of sobriety/quit date alcohol: 2021 Substance/Drug Use: former Date of last use: Marijuana - 2020 Physical Exam 2 Const: GENERAL APPEARANCE: cooperative, in distress (in tears) and anxious; not ill appearing and not frail appearing HENMT: COMMON NORMALS: normocephalic, atraumatic and Normal external nose present HEAD & SCALP: normocephalic and atraumatic FACE & SINUS: normal facial exam and face symmetric NOSE: Normal external nose present Eye: COMMON NORMALS: Equal, round and reactive pupils present and EOMs intact bilaterally PUPIL: Yes Equal, round and reactive pupils present Neck/C-Spine: GENERAL: Yes trachea midline Chest: CHEST: Yes Symmetrical chest wall rise Resp: COMMON NORMALS: normal respiratory effort, No retractions, No use of accessory muscles and clear to auscultation bilaterally AUSCULTATION: clear to auscultation bilaterally Cardio: COMMON NORMALS: regular rate and regular rhythm RATE: regular rate RHYTHM: regular rhythm GI: COMMON NORMALS: Normal to inspection, nondistended, normoactive bowel sounds present Extremity: COMMON NORMALS: no pedal edema Neuro: NOE COMA SCALE: document GCS findings [place] coma scale eye opening: Spontaneous [place] coma scale verbal response: Orientated Noe coma scale motor response: Obey commands [place] coma scale total score: 15 S ENSORY EXAM: Yes extremities (intact) Psych: COMMON NORMALS: cooperative ACTIVITY/MOTOR BEHAVIOR: Yes fidgeting and Yes disorganized behavior SPEECH: Yes excessive and Yes rapid MOOD & AFFECT: Yes tearful and Yes expansive affect THOUGHT PROCESS: Circumstantial thought process present and disorganized THOUGHT CONTENT: Yes Suicidality present Skin: COMMON NORMALS: no rashes or lesions noted GENERAL SKIN EXAM: no rashes or lesions noted Course 2 Vital Signs: Vital signs: Vital Signs Temperature 98.6 F 05/11/25 17:38 Pulse Rate 80 05/11/25 17:38 Respiratory Rate 14 05/11/25 17:38 Blood Pressure 109/83 05/11/25 17:38 Pulse Oximetry 95 05/11/25 17:38 Oxygen Delivery Me thod Room Air 05/11/25 17:38 MDM - Psych Medical Decision Making Medically this patient is stable. No medical illnesses. No ingestions. She is quite tearful. She expressed thoughts of suicide. 96-hour hold paperwork was filed. Admission orders have been placed. She will go to the neuropsychiatric unit. Lab Data 05/11/25 05:48 05/11/25 05:48 Laboratory Results WBC 9.41 10^3/uL (3.29-11.43) 05/11/25 05:48 RBC 4.54 10^6/uL (3.85-5.65) 05/11/25 05:48 Hgb 14.60 g/dL (11.27-16.99) 05/11/25 05:48 Hct 42.4 % (36-47) 05/11/25 05:48 MCV 93.4 fl (85-98) 05/11/25 05:48 MCH 32.2 pg (27-33) 05/11/25 05:48 MCHC 34.4 g/dL (30-55) 05/11/25 05:48 RDW 12.3 % (12.1-15.1) 05/11/25 05:48 Plt Count 352 10^3/cmm (157-399) 05/11/25 05:48 MPV 8.3 fL (7.4-10.4) 05/11/25 05:48 Neut % (Auto) 42.3 % 05/11/25 05:48 Lymph % (Auto) 39.6 % 05/11/25 05:48 Dolores % (Auto) 7.4 % 05/11/25 05:48 Eos % (Auto) 9.4 % 05/11/25 05:48 Baso % (Auto) 1.2 % 05/11/25 05:48 Neut # (Auto) 3.98 10^3/uL (1.8-7.7) 05/11/25 05:48 Lymph # (Auto) 3.7 10^3/uL (0.8-4.8) 05/11/25 05:48 Dolores # (Auto) 0.7 10^3/uL (0.2-0.9) 05/11/25 05:48 Eos # (Auto) 0.9 10^3/uL (0.0-0.8) H 05/11/25 05:48 Baso # (Auto) 0.1 10^3/uL (0.0-0.1) 05/11/25 05:48 Nucleated RBC % (auto) 0 % 05/11/25 05:48 Nucleated RBCs # 0.0 /100WBC 05/11/25 05:48 Sodium 140 mmol/L (136-145) 05/11/25 05:48 Potassium 3.7 mmol/L (3.5-5.1) 05/11/25 05:48 Chloride 104 mmol/L (98-107) 05/11/25 05:48 Carbon Dioxide 25 mmol/L (22-29) 05/11/25 05:48 Anion Gap 14.7 (5-19) 05/11/25 05:48 BUN 6 mg/dL (6-20) 05/11/25 05:48 Creatinine 0.5 mg/dL (0.5-0.9) 05/11/25 05:48 GFR Calculation 155.7 mL/min (90-130) H 05/11/25 05:48 Glucose 96 mg/dL (65-115) 05/11/25 05:48 Calculated Osmolality 287 mOsm/kg (285-295) 05/11/25 05:48 Calcium 8.8 mg/dL (8.5-10.5) 05/11/25 05:48 Total Bilirubin 0.3 mg/dL (0.15-1.2) 05/11/25 05:48 AST 23 U/L (0-32) 05/11/25 05:48 ALT 14 U/L (0-33) 05/11/25 05:48 Alkaline Phosphatase 105 U/L (35-105) 05/11/25 05:48 Total Protein 7.5 g/dL (6.6-8.7) 05/11/25 05:48 Albumin 4.6 g/dL (3.5-5.2) 05/11/25 05:48 Globulin 2.9 g/dL (1.3-4.6) 05/11/25 05:48 HCG, Qual Negative (Negative) 05/11/25 05:32 Urine Color Yellow (Yellow) 05/11/25 05:32 Urine Appearance Clear (CLEAR) 05/11/25 05:32 Urine pH 7.0 (5-7) 05/11/25 05:32 Ur Specific [place] 1.017 (1.005-1.030) 05/11/25 05:32 Urine Protein Trace (Negative) A 05/11/25 05:32 Urine Glucose (UA) Negative (Normal) 05/11/25 05:32 Urine Ketones Negative (Negative) 05/11/25 05:32 Urine Blood Negative (Negative) 05/11/25 05:32 Urine Nitrate Negative (Negative) 05/11/25 05:32 Urine Bilirubin Negative (Negative) 05/11/25 05:32 Urine Urobilinogen 1.0 mg/dL (Negative) 05/11/25 05:32 Ur Leukocyte Esterase Negative (Negative) 05/11/25 05:32 Urine RBC 0-2 /hpf (0-2) 05/11/25 05:32 Urine WBC 0-5 /hpf (0-5) 05/11/25 05:32 Ur Squamous Epith Cells 6-10 /hpf (0-5) 05/11/25 05:32 Amorphous Sediment Not Reportable 05/11/25 05:32 Urine Bacteria Trace /hpf (NONE) 05/11/25 05:32 Hyaline Casts 0-4 /lpf H 05/11/25 05:32 Salicylates < 0.3 mg/dL (3-10) L 05/11/25 05:48 Urine Opiates Screen Negative ng/mL (Negative) 05/11/25 05:32 Acetaminophen < 5.0 ug/mL (10-30) L 05/11/25 05:48 Ur Barbiturates Screen Negative ng/mL (Negative) 05/11/25 05:32 Ur Phencyclidine Scrn Negative ng/mL (Negative) 05/11/25 05:32 Ur Amphetamines Screen Negative ng/mL (Negative) 05/11/25 05:32 U Benzodiazepines Scrn Negative ng/mL (Negative) 05/11/25 05:32 Urine Cocaine Screen Negative ng/mL (Negative) 05/11/25 05:32 U Marijuana (THC) Screen Positive ng/mL (Negative) H 05/11/25 05:32 Ethyl Alcohol 199 mg/dL (0-10) H 05/11/25 05:48 No radiology studies performed this visit Discharge Plan Discharge Patient Disposition: Admitted As Inpatient Admit Provider: Acosta Bonilla Clinical Impression: Acute anxiety, Panic disorder, Suicidal ideation Condition: Stable Coding Level of Care Code ED Mountain Guide for Sen Sanchez
[2025-05-11 05:44] LABS: Glucose Urine UA Negative (Normal); Nitrate Urine Negative (Negative); Specific Gravity, Urine 1.017 (1.005-1.030)
[2025-05-11 05:49] LABS: Add Urine Microscopic? YES
[2025-05-11 05:50] LABS: HCG Qualitative Urine. Negative (Negative)
[2025-05-11 05:51] LABS: PCP Screen Urine Negative (Negative)
[2025-05-11 06:00] LABS: Nucleated Red Blood Cells % 0 %
--- NOTE | 2025-05-11 06:00 | PC.NURSE ---
96 HH Pt served with copy of 96 HH by this RN and security. Pt awake, A&Ox3, tearful and repeatedly asking Am I in trouble? Pt stated that she is familiar with 96 [facility] and has been admitted to [facility] in the past.
[2025-05-11 06:02] LABS: Hematocrit 42.4 % (36-47); Hemoglobin 14.60 g/dL (11.27-16.99); Mean Corpuscular HGB Conc 34.4 g/dL (30-55); Mean Corpuscular Hemoglobin 32.2 pg (27-33); Mean Corpuscular Volume 93.4 fl (85-98); Platelet Count 352 10^3/cmm (157-399); Red Blood Count 4.54 10^6/uL (3.85-5.65); White Blood Count 9.41 10^3/uL (3.29-11.43)
[2025-05-11 06:15] LABS: Alanine Aminotransferase 14 U/L (0-33); Albumin Level 4.6 g/dL (3.5-5.2); Alcohol Level 199 mg/dL (0-10); Alkaline Phosphatase 105 U/L (35-105); Anion Gap 14.7 (5-19); Aspartate Amino Transferase 23 U/L (0-32); Blood Urea Nitrogen 6 mg/dL (6-20); Calcium 8.8 mg/dL (8.5-10.5); Carbon Dioxide 25 mmol/L (22-29); Chloride 104 mmol/L (98-107); Globulin 2.9 g/dL (1.3-4.6); Glucose 96 mg/dL (65-115); Osmolality Calculated 287 mOsm/kg (285-295); Potassium 3.7 mmol/L (3.5-5.1); Sodium 140 mmol/L (136-145); Total Protein 7.5 g/dL (6.6-8.7)
[2025-05-11 06:32] LABS: Acetaminophen < 5.0 ug/mL (10-30); Salicylate < 0.3 mg/dL (3-10)
[2025-05-11 06:41] VITALS: BP 119/84; PULSE 108; RESP 19; TEMP 36.7; O2SAT 97
[2025-05-11] MEDS: multivitamin therapeutic Tablet 1 TAB PO (11:17)
--- NOTE | 2025-05-11 11:29 | W.PM.NPUH&PS ---
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 living treatment after discharge at the highest level of care to which she is willing to commit. 5. Obtain collateral information. 6. Observe against the backdrop of the 96-hour hold. 7. Continue CIWA protocol. PDMP PDMP Reviewed: Not Reviewed Involuntary Hold Information Hold Status: Legal Status: 96 Hour Hold Date/Time Hold Expires: 05/19/25@00:01 96 Hour Hold: 96 Hour Involuntary Admission: Yes Attestations NPU Medical Necessity Statement*: Inpatient hospitalization is medically necessary and the clinically appropriate intervention at this time. We will monitor medication to make changes as indicated. Patient will be in the hospital for over two midnights. Likely length of stay 3 to 5 days. Coding Level of Care Code Acute Code for Chg Fwd Diagnoses Suicidal ideation R45.851 Anxiety F41.9 Major depressive disorder F32.9 History of posttraumatic stress disorder (PTSD) Z86.59 Drug overdose T50.901A Borderline personality disorder F60.3 Suicidal behavior R45.89
[2025-05-11 12:08] VITALS: BP 100/50; PULSE 100; RESP 14; TEMP 36.9; O2SAT 90
--- NOTE | 2025-05-11 12:39 | PC.NURSE ---
Patient up at nurses station. She reports that she is upset that a male patient woke her up. Another staff member overheard the patient say I wish he would shut the fuck up. . Patient is somantic. She cried when we took her blood pressure with an automatic cuff and acted like she was going to pass out and laid down on the bench. This RN woke patient and obtained a manual bp 110/50. Patient denies SI/HI/AVH. She reports that she ruined adelfo. Patient endorses nightly drinking of hard liquor and drinks approximately 8 shots a night. Her CIWA is 11. Patient declines food and drink. Patient ambulated with stand by assist back to bed.
[2025-05-11 17:38] VITALS: BP 109/83; PULSE 80; RESP 14; TEMP 37; O2SAT 95
[2025-05-11 21:11] VITALS: BP 98/63; PULSE 83; RESP 16; TEMP 36.9; O2SAT 97
--- NOTE | 2025-05-12 06:40 | PC.NURSE ---
vitals vs not collected pt asleep, nurse aware, resp 12
[2025-05-12] MEDS: multivitamin therapeutic Tablet 1 TAB PO (08:15)
[2025-05-12] MEDS: diphenhydrAMINE 50 mg/mL SDV 1mL IM (08:42)
[2025-05-12] MEDS: haloperidol inj 5 mg/mL INJ 1 mL IM (08:43)
[2025-05-12] MEDS: LORazepam 2 mg/mL INJ 1 mL IM (08:43)
--- NOTE | 2025-05-12 11:52 | P.NPUPN_ITS ---
Subjective NPU 2 Subjective: Patient presented today reporting that things are going okay. She was mostly fine during the interview but later was very agitated and tearful per staff reports and direct observation. She required a dosing of Haldol and Ativan earlier in the day secondary to 1 of these episodes that she is tearful about being here but then seems to be able to acknowledge that her addiction is suggestive of a need for some intense treatment but she seems to want to both have a condition that she has which at least is suggestive of a need for inpatient rehab but wants to be able to discharge in spend time with her family on the holidays. She acknowledges the dichotomy and that her significant other feels she really needs some kind of intensive treatment. She denies any side effects of her medication. Mental Status Exam 2 MSE Comments: This is a short, well nourished, well developed white female in hospital scrubs with limited grooming and eye contact. No abnormal movements except for psychomotor retardation. Cooperative with exam in mild to moderate distress. Speech was limited and decreased rate and volume. Mood described as tired from the medication they gave me, affect is congruent and subdued. Thought process, organized. Thought content: patient denies suicidal or homicidal ideation, no delusions reported or noted and denies any auditory or visual hallucinations. Attention and concentration are limited and memory appeared somewhat reliable but none were formally tested. She is alert and oriented x 3. Insight and judgment are limited versus impaired. Impulse control is limited versus impaired. Vitals/I&O/Wt Last Vital Signs Temp 98.4 F 05/11/25 21:11 Pulse 83 05/11/25 21:11 Resp 16 05/11/25 21:11 BP 98/63 05/11/25 21:11 Pulse Ox 97 05/11/25 21:11 O2 Del Method Room Air 05/11/25 21:11 Weight last 48 hrs Weight 49.895 kg Data NPU 05/11/25 05:48 05/11/25 05:48 A&P Assessment and plan 1. Suicidal ideation: 2. Anxiety: 3. Major depressive disorder: 4. History of posttraumatic stress disorder (PTSD): 5. Drug overdose: 6. Borderline personality disorder: 7. 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 1. Continue current medication. Start propranolol 10 mg p.o. 3 times daily as needed 2. Continue every 15 minute checks for safety. 3. Encourage individual, group and milieu therapies. 4. Encourage sober living treatment after discharge at the highest level of care to which she is willing to commit. 5. Obtain collateral information. 6. Observe against the backdrop of the 96-hour hold. 7. Continue CIWA protocol. PDMP PDMP Reviewed: Not Reviewed Involuntary Hold Information 2 Hold Status: Legal Status: 96 Hour Hold Date/Time Hold Expires: 0 05/19/25@00:01 96 Hour Hold: 96 Hour Involuntary Admission: Yes Attestations NPU 2 Medical Necessity Statement*: Inpatient hospitalization is medically necessary and the clinically appropriate intervention at this time. We will monitor medication to make changes as indicated. Likely length of stay 3 to 5 days. Coding Level of Care Code Acute Code for [facility] Fwd Diagnoses Suicidal ideation R45.851 Anxiety F41.9 Major depressive disorder F32.9 History of posttraumatic stress disorder (PTSD) Z86.59 Drug overdose T50.901A Borderline personality disorder F60.3 Suicidal behavior R45.89
[2025-05-12 13:28] VITALS: BP 96/61; PULSE 71; RESP 16; TEMP 36.5; O2SAT 97
--- NOTE | 2025-05-12 17:13 | PC.OT ---
HOLD OT EVAL PER NURSING; WILL ATTEMPT AGAIN AT LATER TIME.
[2025-05-12 20:23] VITALS: BP 102/73; PULSE 119; RESP 18; O2SAT 96
[2025-05-13 06:00] VITALS: RESP 17
--- NOTE | 2025-05-13 06:34 | PC.NURSE ---
vs not completed pt sleeping soundly resp 17 nurse aware
[2025-05-13] MEDS: multivitamin therapeutic Tablet 1 TAB PO (09:53)
--- NOTE | 2025-05-13 10:50 | PC.NURSE ---
Patient is tearful this morning. She reports anxiety rated 7/10. She denies SI/HI/AVH. She reports a strong support system when she is discharged. She is asking for case management services in better hopes to hold her accountable. She will return to her boyfriends home on discharge. Patient requested medication for anxiety. Give hydroxizine 50 mg PO for this. Patient then reported that she just wanted 25 mg po so this would not knock her out.
[2025-05-13 13:34] VITALS: BP 103/74; PULSE 76; RESP 16; TEMP 36.5; O2SAT 95
--- NOTE | 2025-05-13 14:01 | P.NPUPN_ITS ---
Subjective NPU 2 Subjective: Patient presented today reporting that she is feeling better and that she really was trying to find a place where she could avoid continuing the pattern of daily alcohol use. She reports feeling she is accomplish that but feeling that rehab would not be an effective tool for her at this time. She endorsed to be at work on Thursday where things were really go downhill. We discussed that that might be something we can support but she became quite emotional secondary to the lack of certainty about the conversation requiring some as needed medication. She denied any side effects of medication. Mental Status Exam 2 MSE Comments: This is a short, well nourished, well developed white female in hospital scrubs with limited grooming and eye contact. No abnormal movements except for psychomotor retardation. Cooperative with exam in mild to moderate distress. Speech was limited and decreased rate and volume. Mood described as okay but I'm anxious about missing work on thursday, affect is congruent and subdued. Thought process, organized. Thought content: patient denies suicidal or homicidal ideation, no delusions reported or noted and denies any auditory or visual hallucinations. Attention and concentration are limited and memory appeared somewhat reliable but none were formally tested. She is alert and oriented x 3. Insight and judgment are limited versus impaired. Impulse control is limited versus impaired. Vitals/I&O/Wt Last Vital Signs Temp 97.7 F 05/13/25 13:34 Pulse 76 05/13/25 13:34 Resp 16 05/13/25 13:34 BP 103/74 05/13/25 13:34 Pulse Ox 95 05/13/25 13:34 O2 Del Method Room Air 05/13/25 13:34 Data NPU 05/11/25 05:48 05/11/25 05:48 A&P Assessment and plan 1. Suicidal ideation: 2. Anxiety: 3. Major depressive disorder: 4. History of posttraumatic stress disorder (PTSD): 5. Drug overdose: 6. Borderline personality disorder: 7. 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 1. Continue current medication. Start propranolol 10 mg p.o. 3 times daily as needed 2. Continue every 15 minute checks for safety. 3. Encourage individual, group and milieu therapies. 4. Encourage sober living treatment after discharge at the highest level of care to which she is willing to commit. 5. Obtain collateral information. 6. Observe against the backdrop of the 96-hour hold. 7. Continue CIWA protocol. PDMP PDMP Reviewed: Not Reviewed Involuntary Hold Information 2 Hold Status: Legal Status: 96 Hour Hold Date/Time Hold Expires: 0 05/19/25@00:01 96 Hour Hold: 96 Hour Involuntary Admission: Yes Attestations NPU 2 Medical Necessity Statement*: Inpatient hospitalization is medically necessary and the clinically appropriate intervention at this time. We will monitor medication to make changes as indicated. Likely length of stay 1-4 days. Coding Level of Care Code Acute Code for g Fwd Diagnoses Suicidal ideation R45.851 Anxiety F41.9 Major depressive disorder F32.9 History of posttraumatic stress disorder (PTSD) Z86.59 Drug overdose T50.901A Borderline personality disorder F60.3 Suicidal behavior R45.89
[2025-05-13 20:53] VITALS: BP 99/68; PULSE 105; RESP 17; TEMP 36.9; O2SAT 97
[2025-05-14 06:00] VITALS: RESP 16
--- NOTE | 2025-05-14 06:37 | PC.NURSE ---
vs not completed pt sleeping soundly, resp 16, nurse notified
[2025-05-14] MEDS: multivitamin therapeutic Tablet 1 TAB PO (08:21)
[2025-05-14 14:00] VITALS: BP 100/67; PULSE 81; RESP 20; TEMP 36.9; O2SAT 97
[2025-05-14] MEDS: blistex lip oint 7 gm Tube 1 APPLIC TOPICAL (14:13)
--- NOTE | 2025-05-14 18:12 | P.NPUPN_ITS ---
Subjective NPU 2 Subjective: Patient presented today reporting that she is feeling better and is planning on doing a meetings and trying to maintain her sobriety. We discussed the risks, benefits and alternatives of a trial of naltrexone and she understood and agreed to proceed as is documented in this note. We discussed the plan to consider Vivitrol if the oral dosing is effective. We discussed allowing her to discharge in the morning to avoid missing work and starting another cascade of events but discussed that if she is unable to do this this way and she were to return that are absolute recommendation would be inpatient rehab. She denied any side effects to the medications. Mental Status Exam 2 MSE Comments: This is a short, well nourished, well developed white female in hospital scrubs with limited grooming and eye contact. No abnormal movements except for mild psychomotor retardation. Cooperative with exam in mild distress. Speech was more spontaneous and slightly decreased rate and volume. Mood described as better, happy to know I will not be missing work on thursday, affect is congruent and less subdued. Thought process, organized. Thought content: patient denies suicidal or homicidal ideation, no delusions reported or noted and denies any auditory or visual hallucinations. Attention and concentration are limited and memory appeared somewhat reliable but none were formally tested. She is alert and oriented x 3. Insight is improving and judgment are limited but improving. Impulse control is limited but improving. Vitals/I&O/Wt Last Vital Signs Temp 97.6 F 05/14/25 20:12 Pulse 96 05/14/25 20:12 Resp 17 05/14/25 20:12 BP 93/58 05/14/25 20:12 Pulse Ox 97 05/14/25 20:12 O2 Del Method Room Air 05/14/25 20:12 Weight last 48 hrs Weight 51.426 kg Data NPU 05/11/25 05:48 05/11/25 05:48 A&P Assessment and plan 1. Suicidal ideation: 2. Anxiety: 3. Major depressive disorder: 4. History of posttraumatic stress disorder (PTSD): 5. Drug overdose: 6. Borderline personality disorder: 7. 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 1. Continue current medication. Started propranolol 10 mg p.o. 3 times daily as needed. Add naltrexone 50 mg p.o. daily. 2. Continue every 15 minute checks for safety. 3. Encourage individual, group and milieu therapies. 4. Encourage sober living treatment after discharge at the highest level of care to which she is willing to commit. Plan for discharge in the morning but will work with social work team to make sure she has appropriate appointments and aftercare postdischarge. 5. Obtain collateral information. 6. Observe against the backdrop of the 96-hour hold. 7. Continue CIWA protocol. PDMP PDMP Reviewed: Not Reviewed Involuntary Hold Information 2 Hold Status: Legal Status: 96 Hour Hold Date/Time Hold Expires: 0 05/19/25@00:01 96 Hour Hold: 96 Hour Involuntary Admission: Yes Attestations NPU 2 Medical Necessity Statement*: Inpatient hospitalization is medically necessary and the clinically appropriate intervention at this time. We will monitor medication to make changes as indicated. Likely length of stay 1 day. Coding Level of Care Code Acute Code for Chg Fwd Diagnoses Suicidal ideation R45.851 Anxiety F41.9 Major depressive disorder F32.9 History of posttraumatic stress disorder (PTSD) Z86.59 Drug overdose T50.901A Borderline personality disorder F60.3 Suicidal behavior R45.89
[2025-05-14 20:12] VITALS: BP 93/58; PULSE 96; RESP 17; TEMP 36.4; O2SAT 97
[2025-05-15 06:00] VITALS: BP 98/65; PULSE 95; RESP 17; TEMP 36.6; O2SAT 97
--- NOTE | 2025-05-15 06:22 | P.NPUDS_ITS ---
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 05/11/25 05:48 Ur Barbiturates Sc reen Negative ng/mL (N egative) 05/11/25 05:32 Ur Phencyclidine S crn Negative ng/mL (N egative) 05/11/25 05:32 Ur Amphetamines Sc reen Negative ng/mL (N egative) 05/11/25 05:32 U Benzodiazepines Scrn Negative ng/mL (N egative) 05/11/25 05:32 Urine Cocaine Scre en Negative ng/mL (N egative) 05/11/25 05:32 U Marijuana (THC) Screen Positive ng/mL (N egative) H 05/11/25 05:32 Ethyl Alcohol 199 mg/dL (0-10) H 05/11/25 05:48 Vitals: Last Vital Signs Temp 97.6 F 05/14/25 20:12 Pulse 96 05/14/25 20:12 Resp 17 05/14/25 20:12 BP 93/58 05/14/25 20:12 Pulse Ox 97 05/14/25 20:12 O2 Del Method Room Air 05/14/25 20:12 Discharge Plan Discharge Patient Disposition: Home Condition: Stable Prescriptions: New trazodone 50 mg Tablet 50 mg PO BEDTIME PRN (Reason: Sleep) 30 Days Qty: 30 1RF naltrexone 50 mg Tablet 50 mg PO DAILY 30 Days Qty: 30 1RF propranolol 20 mg Tablet 10 mg PO TID PRN (Reason: Anxiety) 30 Days Qty: 45 1RF hydroxyzine pamoate 25 mg Capsule 50 mg PO Q6H PRN (Reason: Anxiety) 30 Days Qty: 120 1RF thiamine mononitrate (vit B1) [Vitamin B-1 (mononitrate)] 100 mg Tablet 100 mg PO DAILY 30 Days Qty: 30 1RF Discontinued hydroxyzine HCl 25 mg tablet 25 mg PO BID PRN (Reason: anxiety) Qty: 60 2RF Rx Instructions: Take one tablet twice a day, if needed for anxiety Discharge Order = DC NOW: Discharge Order (Routine); Ordered 05/15/25 Ordered By: Acosta Bonilla Referrals: Angeline Marmolejo PA [Primary Care Provider, [facility]] Discharge Diet: Regular Discharge Activity: Resume usual activity Patient Instructions: Opioid Safety, Patient Portal & Sari Instructions Discharge Attestations NPU Time Spent in Discharge Care*: less than 30 min Specific Discharge Activities: Specific discharge activities: educating patient, discussing with [employer]/social workers/dc planners, documenting/other paperwork and evaluating patient/reviewing data Coding Level of Care Code Acute Code for Chg Fwd Diagnoses Suicidal ideation R45.851 Anxiety F41.9 Major depressive disorder F32.9 History of posttraumatic stress disorder (PTSD) Z86.59 Drug overdose T50.901A Borderline personality disorder F60.3 Suicidal behavior R45.89
[2025-05-15 06:28] VITALS: BP 98/65; PULSE 95; RESP 17; TEMP 36.6; O2SAT 97
--- NOTE | 2025-05-15 11:57 | PC.NURSE ---
this nurse spoke with patient when she called about her medications. 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 I also stated to patient that if she needed help finding pharmacy to call or come in and I would escort her.
== END 2025-05-15 06:58 | disposition home or self-care (01) | DRG 751 ==
LOC: ER 05:54 → NP 05:59
PROVIDERS: Admitting Provider Psychiatry & Neurology Psychiatry; Emergency Provider Emergency Medicine; PCP Physician Assistant; Visit Provider Psychiatry & Neurology Psychiatry
DX: F32.9 Major depressive disorder, single episode, unspecified (principal); R45.851 Suicidal ideations; F41.9 Anxiety disorder, unspecified; F60.3 Borderline personality disorder; F17.290 Nicotine dependence, other tobacco product, uncomplicated; Z62.810 Personal history of physical and sexual abuse in childhood; R45.1 Restlessness and agitation; Z86.59 Personal history of other mental and behavioral disorders; Z88.8 Allergy status to other drugs, medicaments and biological substances; F41.0 Panic disorder [episodic paroxysmal anxiety]
CPT/HCPCS: 36415; 80053; 80306; 80307; 81001; 81025; 85025; 93005; 96372; 99285; J1200; J1630; J2060; J9999